=== PATIENT | female | born 1965 | race Caucasian/White ===

== ENCOUNTER 2020-09-29 13:34 | Emergency (ER) | payer OTHER, SELFPAY ==
--- NOTE | ~2020-09-29 | XR_ITS ---
EXAMINATION:XR cervical spine 4-5V DATE: 09/29/2020 14:36 INDICATION: Neck pain TECHNIQUE: AP, lateral, lateral swimmers and odontoid views of the cervical spine are provided. COMPARISON: None FINDINGS: There are 3 mm of retrolisthesis of C5 on C6. The odontoid is intact. No fracture is identi fied. The vertebral body heights are normal. There is moderate loss of intervertebral disc space heig ht at C5-6 and C6-7. Small degenerative osteophytes project from the anterior endplates of multiple v ertebral bodies. There is moderate multilevel facet and uncovertebral joint osteoarthritis. Surgical clips in the neck are likely from thyroidectomy. IMPRESSION: 1. Moderate cervical spondylosis without acute findings. Reviewed, dictated and finalized at location A.
--- NOTE | ~2020-09-29 | XR_ITS ---
EXAMINATION: XR lumbar spine 2-3V DATE: 09/29/2020 14:36 INDICATION: Low back pain TECHNIQUE: Anteroposterior and lateral views of the lumbar spine, and cone-down lateral view of the l umbosacral junction were obtained. COMPARISON: 12/19/2011 FINDINGS: There is mild central endplate depression in the L2 and L3 vertebral bodies. There are 3 mm of anterolisthesis of L4 on L5. There is mild loss of intervertebral disc space height at L5-S1. The intervertebral disc spaces are otherwise maintained. IMPRESSION: 1. Age-indeterminate compression fractures of L2 and L3. Reviewed, dictated and finalized at location A.
[2020-09-29 13:47] VITALS: BP 112/77; PULSE 103; RESP 16; TEMP 36.7; O2SAT 98
[2020-09-29 13:51] VITALS: BP 112/77; PULSE 103; RESP 16; TEMP 36.7; O2SAT 98
--- NOTE | 2020-09-29 14:13 | ED.BACK ---
HPI - Back Pain/Injury General Chief Complaint: Back Pain/Injury Stated Complaint: back pain/neck pain/rt leg Time Seen by Provider: 09/29/20 14:05 Source: patient, RN notes reviewed and old records reviewed Mode of arrival: wheelchair Limitations: no limitations History of Present Illness HPI Narrative: 55 year old female who presents to [facility] care with complaints of experiencing a fall onto her back today when a dog tried to get out of the door. She was inside of her cousins house getting ready to leave and dog caused her to fall hard onto living room floor onto her back. Patient voices pain to the posterior neck and to midlumbar back region with some tingling stated to her right arm and leg. Patient states that she was incontinent of urine when she fell but has history of problems with incontinency. Patient has palpable pulses to lower extremities of good quality. MD elicited complaint: back pain and fall Related Data Home Medications Medication Instructions Recorded Confirmed albuterol sulfate [ProAir 2 inh INHALATION Q6H PRN 09/29/20 09/29/20 RespiClick] alprazolam 0.5 mg PO TID 09/29/20 09/29/20 citalopram 40 mg PO DAILY 09/29/20 09/29/20 duloxetine 30 mg PO DAILY 09/29/20 09/29/20 hydroxychloroquine 400 mg PO DAILY 09/29/20 09/29/20 levothyroxine [Euthyrox] 200 mcg PO DAILY 09/29/20 09/29/20 lisinopril-hydrochlorothiazide 1 tablet PO DAILY 09/29/20 09/29/20 nabumetone 1,000 mg PO BID PRN 09/29/20 09/29/20 Allergies Allergy/AdvReac Type Severity Reaction Status Date / Time doxycycline AdvReac Nausea Verified 09/29/20 13:50 Review of Systems Review of Systems: CONSTITUTIONAL: Denies fever, chills, or sweats. EYES: Denies visual changes, redness, or discharge. ENT: Denies rhinorrhea, congestion, sore throat, or otalgia. CARDIOVASCULAR: Denies chest pain, palpitations, or edema. RESPIRATORY: Denies cough or dyspnea. GASTROINTESTINAL: Denies abdominal pain, nausea, vomiting, or diarrhea. GENITOURINARY: Denies dysuria or hematuria. SKIN: Denies rash or itching. MUSCULOSKELETAL: Positive mid lumbar back pain and posterior neck pain,no other joint pain, or myalgia, reports feelings of tightness and spasms of back NEUROLOGIC: Denies headache, numbness, or weakness. PSYCHIATRIC: Positive history anxiety or depression. All systems reviewed & are unremarkable except as noted in HPI and below PMFSH Past Medical History Medical History (Updated 10/01/20 @ 17:12 by Teri Ureña NP) Anxiety and depression Asthma Autoimmune disease Bronchitis Compression fracture COVID-19 Hypertension Thyroid cancer Urinary incontinence Surgical History Surgical History H/O thyroidectomy Hx of appendectomy Hx of cholecystectomy Family History Family History (Updated 10/01/20 @ 17:16 by Teri Ureña NP) Other No significant family history Social History Social History (Updated 09/29/20 @ 18:36 by Teri Ureña NP) Smoking status: Never smoker Alcohol intake: unknown Substance use: never Living arrangements: with family Gender identity (if verbalized by the patient): Female Comments At time of signature, agree with nursing past medical, surgical, social and family history. There is no relevant family history pertinent to the presenting complaint Exam Narrative: GENERAL: Well-appearing, well-nourished, and in stated acute pain. HEAD: Normocephalic, atraumatic. EYES: PERRLA and EOMI. ENT: Nares clear, no rhinorrhea or epistaxis. Mucous membranes moist. NECK: Supple. no lymphadenopathy, full ROM of neck noted with pain on palpation to posterior neck CHEST: Clear to auscultation. No respiratory distress.SAO2 98% on room air HEART: Regular rate and rhythm. No murmur heard. Normal peripheral pulses. ABDOMEN: Soft, nontender, nondistended, normal active bowel sounds. EXTREMITIES: Normal range of motion. No edema noted. Pain to mid lumbar back re
== END 2020-09-29 15:20 | disposition short-term general hospital (02) ==
PROVIDERS: Emergency Provider Registered Nurse; PCP Nurse Practitioner Family
DX: M54.2 Cervicalgia (principal); S32.029A Unspecified fracture of second lumbar vertebra, initial encounter for closed fracture; S32.039A Unspecified fracture of third lumbar vertebra, initial encounter for closed fracture; M47.812 Spondylosis without myelopathy or radiculopathy, cervical region; S39.012A Strain of muscle, fascia and tendon of lower back, initial encounter; W19.XXXA Unspecified fall, initial encounter; J45.909 Unspecified asthma, uncomplicated; I10 Essential (primary) hypertension; F41.9 Anxiety disorder, unspecified; F32.9 Major depressive disorder, single episode, unspecified; M35.9 Systemic involvement of connective tissue, unspecified; Z86.14 Personal history of Methicillin resistant Staphylococcus aureus infection; Z85.850 Personal history of malignant neoplasm of thyroid; E89.0 Postprocedural hypothyroidism
CPT/HCPCS: 72050; 72100; 99203; G0463

== ENCOUNTER 2020-09-29 15:44 | Emergency (ER) | payer OTHER, SELFPAY ==
--- NOTE | ~2020-09-29 | CT_ITS ---
EXAMINATION: CT lumbar spine wo con DATE: 09/29/2020 17:45 INDICATION: Back pain. Compression fracture. TECHNIQUE: Computed tomography (CT) of the lumbar spine was performed without intravenous contrast. A utomated exposure control and iterative reconstruction technique were employed. The dose-length produ ct was 1337.40 mGy-cm. COMPARISON: Lumbar spine radiograph 09/29/2020 FINDINGS: There is 3 mm retrolisthesis of L1 on L2 and 3 mm anterolisthesis of L4 on L5. Vertebral maliha dy heights are normal. There is mildly decreased disc height at L1-L2 and L3-L4 and moderately decrea sed disc height at L5-S1. The following disc levels are specifically discussed: L1-L2: The disc is bulging. There is mild bilateral facet joint osteoarthritis. There is mild bilater al neural foraminal stenosis. There is mild central canal stenosis. L2-L3: The disc does not extend beyond the endplate margin. There is mild bilateral facet joint osteo arthritis. There is no neural foraminal stenosis. There is no central canal stenosis. L3-L4: The disc does not extend beyond the endplate margin. There is severe right and moderate left f acet joint osteoarthritis. There is no neural foraminal stenosis. There is mild central canal stenosi s. L4-L5: The disc is bulging. There is severe bilateral facet joint osteoarthritis. There is mild bilat eral neural foraminal stenosis. There is mild central canal stenosis. L5-S1: The disc is bulging. There is severe bilateral facet joint osteoarthritis. There is mild right and moderate left neural foraminal stenosis. There is mild central canal stenosis. IMPRESSION: 1. No fracture. 2. Moderate lumbar spondylosis. Reviewed, dictated and finalized at location A.
[2020-09-29 16:15] VITALS: BP 109/90; PULSE 95; RESP 18; TEMP 36.8; O2SAT 98
[2020-09-29 17:02] VITALS: BP 102/50; PULSE 87; RESP 16; O2SAT 97
--- NOTE | 2020-09-29 17:07 | ED.FALL ---
HPI - Fall General Chief Complaint: Fall Stated Complaint: fall, sent from urgent care Time Seen by Provider: 09/29/20 17:02 Source: patient and family Mode of arrival: ambulatory Limitations: no limitations History of Present Illness HPI Narrative: Patient is a 55-year-old female with a history of thyroid cancer, currently in remission, who presents for evaluation following a fall, noted to have compression fractures found on plain films at a urgent care. Patient was referred to this facility due to her degree of pain. Patient states that she fell backward after a small dog lunged at her feet when she was visiting a family member. Patient reports falling directly onto her back. She reports that she is not currently having any numbness. No current bowel or bladder dysfunction. She has been ambulatory. Patient was not given any pain medicine at the urgent care. Patient denies any weakness in her lower extremities. She denies neck pain, head trauma or loss of consciousness. Patient denies any saddle anesthesia. Related Data Home Medications Medication Instructions Recorded Confirmed albuterol sulfate [ProAir 2 inh INHALATION Q6H PRN 09/29/20 09/29/20 RespiClick] alprazolam 0.5 mg PO TID 09/29/20 09/29/20 citalopram 40 mg PO DAILY 09/29/20 09/29/20 duloxetine 30 mg PO DAILY 09/29/20 09/29/20 hydroxychloroquine 400 mg PO DAILY 09/29/20 09/29/20 levothyroxine [Euthyrox] 200 mcg PO DAILY 09/29/20 09/29/20 lisinopril-hydrochlorothiazide 1 tablet PO DAILY 09/29/20 09/29/20 nabumetone 1,000 mg PO BID PRN 09/29/20 09/29/20 Allergies Allergy/AdvReac Type Severity Reaction Status Date / Time doxycycline AdvReac Nausea Verified 09/29/20 13:50 Review of Systems Review of Systems: CONSTITUTIONAL: Denies fever CARDIOVASCULAR: Denies chest pain RESPIRATORY: Denies cough or dyspnea. GASTROINTESTINAL: Denies abdominal pain SKIN: Denies rash MUSCULOSKELETAL: Reports lower back pain NEUROLOGIC: Denies headache [facility] Past Medical History Medical History (Updated 09/29/20 @ 18:52 by Teri Barrera MD) Anxiety and depression Asthma Autoimmune disease Bronchitis Compression fracture COVID-19 Hypertension Thyroid cancer Urinary incontinence Surgical History Surgical History H/O thyroidectomy Hx of appendectomy Hx of cholecystectomy Social History Social History (Updated 09/29/20 @ 18:36 by Teri Ureña NP) Smoking status: Never smoker Alcohol intake: unknown Substance use: never Living arrangements: with family Gender identity (if verbalized by the patient): Female Exam Narrative: GENERAL: Awake, alert, conversant HEAD: Normocephalic, atraumatic. EYES: PERRLA and EOMI. ENT: Nares clear, no rhinorrhea or epistaxis. Mucous membranes moist. NECK: Supple. CHEST: No respiratory distress, breathing even and non labored HEART: Regular rate, sinus rhythm ABDOMEN:Non distended, non tender Thorax: Positive midline lumbar tenderness. No midline cervical or thoracic tenderness. EXTREMITIES: Normal range of motion. No edema. Pelvis is stable to anterior lateral compression. No pain with internal or external rotation bilateral hips. SKIN: Warm, dry, no rash. NEURO:No focal deficits. Alert and oriented x3. Strength in bilateral lower extremities 5/5. Distal sensation intact. Reflexes 2+ bilaterally. Course Vital Signs Vital signs: Vital Signs Temperature 36.8 C 09/29/20 16:15 Pulse Rate 95 09/29/20 16:15 Respiratory Rate 18 09/29/20 16:15 Blood Pressure 109/90 09/29/20 16:15 Pulse Oximetry 98 09/29/20 16:15 Temperature 36.8 C 09/29/20 16:15 Pulse Rate 87 09/29/20 17:02 Respiratory Rate 16 09/29/20 17:02 Blood Pressure 102/50 L 09/29/20 17:02 Pulse Oximetry 97 09/29/20 17:02 MDM - Fall MDM Narrative Medical decision making narrative: Patient presented from urgent care for evaluation of compression fractures found
[2020-09-29] MEDS: KETOROLAC (*BKC) 60 MG/2 ML VIAL 30 MG IM (18:01)
[2020-09-29] MEDS: oxyCODONE/ACETAMINOPHEN (*CRX) 5-325 MG TABLET 1 TABLET PO (18:01)
[2020-09-29 18:54] VITALS: BP 111/74; PULSE 89; RESP 16; O2SAT 98
== END 2020-09-29 18:55 | disposition home or self-care (01) ==
PROVIDERS: Emergency Provider Emergency Medicine; PCP Nurse Practitioner Family
DX: S39.012A Strain of muscle, fascia and tendon of lower back, initial encounter (principal); J45.909 Unspecified asthma, uncomplicated; Z86.16 Personal history of COVID-19; I10 Essential (primary) hypertension; M35.9 Systemic involvement of connective tissue, unspecified; F41.9 Anxiety disorder, unspecified; F32.9 Major depressive disorder, single episode, unspecified; Z85.850 Personal history of malignant neoplasm of thyroid; E89.0 Postprocedural hypothyroidism; M47.816 Spondylosis without myelopathy or radiculopathy, lumbar region; W18.39XA Other fall on same level, initial encounter
CPT/HCPCS: 72131; 96372; 99284; A9270; J1885

== ENCOUNTER 2021-12-24 16:44 | Emergency (ER) | payer OTHER, SELFPAY ==
--- NOTE | ~2021-12-24 | CT_ITS ---
EXAMINATION: CT abdomen pelvis wo con DATE: 12/24/2021 18:08 INDICATION: constipation x 9 days, diffuse abd pain TECHNIQUE: Computed tomography (CT) of the abdomen and pelvis was performed without intravenous contr ast. Automated exposure control and iterative reconstruction technique were employed. The dose-length product was 1611.21 mGy-cm. COMPARISON: 12/19/2011. FINDINGS: Lower thorax: Unremarkable Liver: Normal. Biliary/Gallbladder: Gallbladder is absent. No bile duct dilation. Pancreas: Fatty infiltrated. Spleen: Normal. Adrenals:No mass. Kidneys: No suspicious mass or stone. Persistent mild left ureterectasis. GI tract: Prior gastric surgery the distal rectum is mildly dilated to 5.9 cm, by formed stool. Somew hat eccentric rectal wall edema/thickening and surrounding inflammatory change. No small bowel dilati on. Appendix not visualized Mesentery/Peritoneum: No ascites, mass, or free air. Retroperitoneum: No mass. Pelvis: Persistent distal left ureteral ectasia, otherwise the pelvic organs are within normal limits . Soft Tissues: Left upper quadrant abdominal scar. Right lower quadrant injection granuloma. Uncomplic ated fat-containing umbilical hernia. Bones: No acute osseous finding. IMPRESSION: Rectal wall edema/thickening, with surrounding inflammatory change and mild fecal impaction. These fi ndings may be secondary to proctitis. A rectal mass lesion is not excluded. Reviewed, dictated and finalized at location K. IMPRESSION: Rectal wall edema/thickening, with surrounding inflammatory change and mild fec al impaction. These findings may be secondary to proctitis. A rectal mass lesio n is not excluded.
--- NOTE | 2021-12-24 17:11 | ED.ABDPAIN ---
HPI - Abdominal Pain General Chief Complaint: Abdominal Pain <Lidia Rice PA-C - Last Filed: 12/24/21 21:03> Stated Complaint: constipation <Lidia Rice PA-C - Last Filed: 12/24/21 21:03> Time Seen by Provider: 12/24/21 16:57 <Lidia Rice PA-C - Last Filed: 12/24/21 21:03> History of Present Illness HPI narrative: Patient is a 56-year-old female who is 4 weeks postop from a sleeve gastrectomy surgery here for evaluation of constipation over the past 9 days. Patient has been taking daily MiraLAX and Dulcolax without relief of her constipation. Patient states that her appetite has been quite low recently because of nausea, and therefore she has not been drinking much fluids or eating much food. She states that this happened 2 weeks ago, was seen in outside hospital ED, received an enema with relief of her symptoms. No fevers, chills, vomiting, dysuria, urgency or frequency. She tells me that she has been following with her primary care about provider for an elevated creatinine, it was 1.5 on November 29. <Lidia Rice PA-C - Last Filed: 12/24/21 21:03> Related Data Home Medications: Home Medications Medication Instructions Recorded Confirmed albuterol sulfate 90 mcg/actuation 2 inh inhalation Q6H PRN Shortness 09/29/20 09/29/20 breath activated powder inhaler Of Breath (ProAir RespiClick) alprazolam 0.5 mg tablet 0.5 mg PO TID 09/29/20 09/29/20 citalopram 40 mg tablet 40 mg PO DAILY 09/29/20 09/29/20 duloxetine 30 mg capsule,delayed 30 mg PO DAILY 09/29/20 09/29/20 release hydroxychloroquine 200 mg tablet 400 mg PO DAILY 09/29/20 09/29/20 levothyroxine 200 mcg tablet 200 mcg PO DAILY 09/29/20 09/29/20 (Euthyrox) lisinopril 20 1 tablet PO DAILY 09/29/20 09/29/20 mg-hydrochlorothiazide 25 mg tablet nabumetone 500 mg tablet 1,000 mg PO BID PRN Pain 09/29/20 09/29/20 <Lidia Rice PA-C - Last Filed: 12/24/21 21:03> Allergies/Adverse Reactions: Allergies Allergy/AdvReac Type Severity Reaction Status Date / Time doxycycline AdvReac Nausea Verified 09/29/20 13:50 <Lidia Rice PA-C - Last Filed: 12/24/21 21:03> Review of Systems Review of Systems: Gen.: Denies fevers or chills Eyes: Denies eye pain or visual change ENT: Denies congestion Respiratory: Denies shortness of breath or cough CV: Denies chest pain or palpitations GI: Reports constipation, nausea, abdominal pain. Denies emesis or diarrhea denies burning, urgency, frequency or hematuria Musculoskeletal: Denies back pain or muscle pain Neuro: Denies numbness, tingling, weakness or focal weakness Skin: Denies rash Except as documented, all other systems reviewed and negative <Lidia Rice PA-C - Last Filed: 12/24/21 21:03> [facility] Past Medical History Medical History: Medical History Anxiety and depression Asthma Autoimmune disease Bronchitis Compression fracture COVID-19 Hypertension Thyroid cancer Urinary incontinence <Lidia Rice PA-C - Last Filed: 12/24/21 21:03> Surgical History Surgical History: Surgical History H/O thyroidectomy Hx of appendectomy Hx of cholecystectomy <Lidia Rice PA-C - Last Filed: 12/24/21 21:03> Family History Family History: Family History (Updated 10/01/20 @ 17:16 by Teri Ureña NP) Other No significant family history <Lidia Rice PA-C - Last Filed: 12/24/21 21:03> Social History Social History: Social History (Updated 09/29/20 @ 18:36 by Teri Ureña NP) Smoking status: Never smoker Alcohol intake: unknown Substance use: never Gender identity (if verbalized by the patient): Female <Lidia Rice PA-C - Last Filed: 12/24/21 21:03> Exam Narrative: APPEARANCE: Obese. Well appea
[2021-12-24 17:12] VITALS: BP 109/64; PULSE 86; RESP 20; TEMP 36.6; O2SAT 96
[2021-12-24] MEDS: SODIUM CHLORIDE 0.9% IV 1,000 ML 999 ML IV CONT ×2 (17:28→19:48)
[2021-12-24 17:35] LABS: Basophils Absolute Auto 0.1 K/mm3 (0.0-0.1); Basophils Percent Auto 0.4 % (0.2-1.2); Eosinophils Absolute Auto 0.2 K/mm3 (0-0.3); Eosinophils Percent Auto 1.9 % (0-4.4); Hematocrit 33.4 % (37.0-47.0); Hemoglobin 10.4 g/dL (12.0-15.0); Immature Granulocyte Absolute 0.06 K/mm3 (0.00-0.031); Immature Granulocyte Percent A 0.5 % (0-0.5); Lymphocytes Absolute Auto 2.18 K/mm3 (0.9-3.2); Lymphocytes Percent Auto 19.3 % (18.3-44.2); Mean Corpuscular HGB Conc 31.1 g/dl (32-36); Mean Corpuscular Hemoglobin 26.3 pg (26-34); Mean Corpuscular Volume 84.3 fl (80-100); Mean Platelet Volume 9.8 fl (7.4-10.4); Monocytes Percent Auto 8.7 % (2.6-8.5); Neutrophils Absolute Auto 7.8 K/mm3 (1.3-6.7); Neutrophils Percent Auto 69.2 % (45.5-73.1); Platelet Count Result 318 k/mm3 (150-375); Red Blood Count 3.96 M/mm3 (4.2-5.4); Red Cell Distribution Width 14.4 % (11.5-14.5); White Blood Count 11.3 K/mm3 (4.5-10.0)
[2021-12-24 17:47] LABS: Phosphorus 3.4 mg/dL (2.5-4.5)
[2021-12-24 17:48] LABS: Alanine Aminotransferase 28 U/L (6-35); Albumin Level 4.4 g/dL (3.5-5.1); Alkaline Phosphatase 110 U/L (38-126); Anion Gap 10 mmol/L (8-16); Aspartate Amino Transferase 45 U/L (14-36); Bilirubin,Total 0.4 mg/dL (0.2-1.3); Blood Urea Nitrogen 38 mg/dL (7-17); Calcium 9.4 mg/dL (8.4-10.2); Carbon Dioxide 31 mmol/L (22-30); Chloride 97 mmol/L (98-107); Estimated CRCL calculation 42 ml/min; Estimated Glomerular Filt Rate 27; Glucose 110 mg/dL (65-110); Potassium 3.8 mmol/L (3.4-5.0); Sodium 138 mmol/L (137-145)
[2021-12-24] MEDS: ONDANSETRON INJ 4 MG/2 ML VIAL IV PUSH (19:49)
== END 2021-12-24 20:48 | disposition home or self-care (01) ==
PROVIDERS: Physician Assistant; Emergency Provider Emergency Medicine; PCP Nurse Practitioner Family
DX: K56.41 Fecal impaction (principal); Z98.84 Bariatric surgery status; J45.909 Unspecified asthma, uncomplicated; I10 Essential (primary) hypertension; M35.9 Systemic involvement of connective tissue, unspecified; E89.0 Postprocedural hypothyroidism; F41.9 Anxiety disorder, unspecified; F32.A Depression, unspecified; Z85.51 Personal history of malignant neoplasm of bladder; Z86.16 Personal history of COVID-19
CPT/HCPCS: 36415; 74176; 80053; 83605; 83735; 84100; 85025; 96361; 96374; 99284; J2405; J7030

== ENCOUNTER 2024-05-11 19:06 | Emergency (ER) | payer OTHER, SELFPAY ==
[2024-05-11] VITALS (7 sets, daily range): BP systolic 119–139; BP diastolic 71–95; PULSE 78–109; RESP 14–17; TEMP 36.9; O2SAT 98–100
--- NOTE | ~2024-05-11 | CT_ITS ---
CLINICAL INDICATION: Nausea and vomiting after colonoscopy less than 12 hours earlier COMPARISON: 12/24/2021 and dating back to 12/19/2011. TECHNIQUE: Multiple contiguous axial images of the abdomen and pelvis were performed without the admi nistration of intravenous contrast The dose-length product (DLP) was 1539.71 mGy-cm. Automated exposure control and iterative reconstruction technique were employed. FINDINGS/OBSERVATIONS: Visualized lower thorax: The bilateral lung bases are clear. The heart is of normal size, without pericardial effusion. Small hiatal hernia is present. 17 mm cystic focus within the lower inner left breast. Liver: The liver demonstrates homogeneous attenuation and is enlarged measuring 19 cm in longitudinal dimens ion. Gallbladder and biliary system: The gallbladder is surgically absent. Pancreas: Fatty atrophy of the pancreas. Further evaluation is limited secondary to lack of intravenous contras t. Spleen: The spleen demonstrates homogeneous attenuation and is not enlarged measuring 8 cm in longitudinal di mension. Kidneys: Redemonstration of mild left-sided hydroureteronephrosis without an obstructing stone identi fied. This is similar in appearance to 2011 and 2021. The remainder of the bilateral kidneys are otherwise unremarkable, without right-sided hydronephrosis or bilateral renal calculi. Adrenal glands: Unremarkable. Gastrointestinal tract: Post gastric sleeve surgery. Scattered throughout the colon is a combination of fluid and punctate foci of increased attenuation, possibly related to patient's procedure earlier today. No extraluminal air is identified. Air is identified within the rectum. Appendix: Surgically absent. Vasculature: Unremarkable. Lymph nodes: Limited evaluation without intravenous contrast. Pelvic structures: The bladder is decompressed, limiting its evaluation. The uterus is anteverted and anteflexed, and otherwise unremarkable. Body wall and musculoskeletal: Small fat-containing umbilical hernia. Trace degenerative disease within the lower thoracic/lumbosacral spine, with osteophyte formation, di sc space narrowing, endplate changes and vacuum phenomena, most prominent at the level of L5/S1. IMPRESSION: Mild left-sided hydroureteronephrosis without a source of obstruction identified. This finding is unchanged from 2021 and 2011. No acute intra-abdominal findings, as detailed above. Reviewed, dictated and finalized at location A. IMPRESSION: Mild left-sided hydroureteronephrosis without a source of obstruction identifie d. This finding is unchanged from 2021 and 2011. No acute intra-abdominal findings, as detailed above.
--- NOTE | ~2024-05-11 | XR_ITS ---
CHEST RADIOGRAPH, PA AND LATERAL CLINICAL HISTORY: chest pressure, NAUSEA . COMPARISON: None available TECHNIQUE: PA and lateral views of the chest. FINDINGS The cardiomediastinal silhouette is unremarkable. The lungs are clear. Visualized osseous structures and soft tissues are unremarkable. IMPRESSION: No focal infiltrate or effusion. Reviewed, dictated and finalized at location A.
--- NOTE | 2024-05-11 19:08 | ECG_ITS ---
Test Date: 2024-05-11 19:10:25 Measurements Intervals [place] Rate: 108 P: 38 FL: 193 QRS: -2 QRSD: 81 T: 56 QT: 355 QTc: 476 Interpretive Statements SINUS TACHYCARDIA POSSIBLE ANTERIOR MYOCARDIAL INFARCTION , PROBABLY OLD [30 ms Q WAVE IN V3/V4, OR R < 0.2 mV IN V4] No previous ECG available for comparison Electronically Signed On 05-12-2024 16:45:31 CDT by Cullen Valero M.D.
[2024-05-11] MEDS: SODIUM CHLORIDE 0.9% IV 1,000 ML 999 ML IV CONT ×2 (19:18→20:55)
[2024-05-11 19:25] LABS: Basophils Absolute Auto 0.1 K/mm3 (0.0-0.1); Basophils Percent Auto 0.3 % (0.2-1.2); Eosinophils Absolute Auto 0.1 K/mm3 (0-0.3); Eosinophils Percent Auto 0.6 % (0-4.4); Hematocrit 40.6 % (37.0-47.0); Hemoglobin 13.5 g/dL (12.0-15.0); Immature Granulocyte Absolute 0.07 K/mm3 (0.00-0.031); Immature Granulocyte Percent A 0.4 % (0-0.5); Lymphocytes Absolute Auto 0.63 K/mm3 (0.9-3.2); Lymphocytes Percent Auto 3.2 % (18.3-44.2); Mean Corpuscular HGB Conc 33.3 g/dl (32-36); Mean Corpuscular Hemoglobin 27.7 pg (26-34); Mean Corpuscular Volume 83.2 fl (80-100); Mean Platelet Volume 8.7 fl (7.4-10.4); Monocytes Absolute Auto 1.1 K/mm3 (0.1-0.6); Monocytes Percent Auto 5.7 % (2.6-8.5); Neutrophils Absolute Auto 17.5 K/mm3 (1.3-6.7); Neutrophils Percent Auto 89.8 % (45.5-73.1); Platelet Count Result 379 k/mm3 (150-375); Red Blood Count 4.88 M/mm3 (4.2-5.4); Red Cell Distribution Width 15.8 % (11.5-14.5); White Blood Count 19.5 K/mm3 (4.5-10.0)
[2024-05-11 19:35] LABS: Alanine Aminotransferase 28 U/L (6-35); Albumin Level 4.8 g/dL (3.5-5.1); Alkaline Phosphatase 119 U/L (38-126); Anion Gap 14 mmol/L (4-12); Aspartate Amino Transferase 34 U/L (14-36); Bilirubin,Total 0.6 mg/dL (0.2-1.3); Blood Urea Nitrogen 18 mg/dL (7-17); Calcium 9.2 mg/dL (8.4-10.2); Carbon Dioxide 22 mmol/L (22-30); Chloride 100 mmol/L (98-107); Estimated CRCL calculation 71 ml/min; Estimated Glomerular Filt Rate 57; Glucose 152 mg/dL (65-110); Lipase 201 U/L (23-300); Potassium 3.3 mmol/L (3.4-5.0); Sodium 136 mmol/L (137-145)
--- OUTSIDE RECORDS SUMMARY | 2024-05-11 19:39 | XMS_ITS | Encounter Summary ---
Author Organization [employer] Address [address] [place] [address] Care Team Providers Care Statistical Methods Teacher Name Role Phone Ori Tuttle MD Primary Care Provider [phone] Encounter Details Date Type Department Care Team (Latest Contact Info) Description 07/05/1998 Inpatient Historical HIS PATIENT [place] Muñ[place] [address] [place] [id number] Shoulder (girdle) dystocia during labor and deliver, delivered (Primary Dx) Social History Tobacco Use Types Packs/Day Years Used Date Smoking Tobacco: Never Assessed Comments Unknown Sex and Gender Information Value Date Recorded Sex Assigned at Not on file Legal Sex Female 3:28 AM [employer] Gender Identity Not on file Sexual Orientation Not on file documented as of this encounter Plan of Treatment Not on file documented as of this encounter Visit Diagnoses Diagnosis Shoulder (girdle) dystocia during labor and deliver, delivered- Primary documented in this encounter Care Teams Statistical Methods Teacher Relationship Specialty Start Date End Date Ori Tuttle MD [address] [facility] [address] [facility] [id number] PCP - General 12/20/99 documented as of this encounter
--- OUTSIDE RECORDS SUMMARY | 2024-05-11 19:39 | XMS_ITS ---
Author Organization [facility] Address [address] [address] [place] [address] Care Team Providers Care Assembly Worker Name Role Phone Chucho Stapleton Unavailable [phone] zzzzMigration, zzzzProvider Unavailable Unav ailable Allergies Allergen (clinical drug ingredient) Drug/Non Drug Allergy documented on EMR Reaction Allergy Type Onset Date Status nabumetone Nabumetone Reaction: Asthma attack Drug Allergy 07/06/2020 Active doxycycline Doxycycline Unknown Drug Allergy 06/27/2020 Ac tive Cat dander Cat Dander Unknown Allergy 06/27/2020 Active Dust Mites Unknown Allergy 06/27/2020 Active Pollen Pollen Unknown Allergy 06/27/2020 Active REASON FOR VISIT EMR-Gabriel Medications Medication SIG (Take, Route, Frequency, Duration) Notes Start Date End Date Status Methocarbamol 750 MG take 1 tablet (750 mg) by oral route 3 times per day Oral 3 Active Leflunomide 20 MG take 1 tablet (20 mg) by oral route once daily Oral 1 07/17/2021 Active Levothyroxine 200 mcg 1 daily oral *[facility]* Active Albuterol 2 every 6 hours puffs [facility] Active Meloxicam 15 MG take 1 tablet (15 mg) by oral route once daily with food. Oral 1 04/10/2021 Active traMADol HCl 50 MG take 1 tablet (50 mg) by oral route every 6 hours as needed Oral 4 Active citalopram 40 mg 1 nightly oral *[facility]* Active Medrol 4 MG take as directed Oral 07/17/2021 Active Acetaminophen 500 mg 2 tablets ( 1000mg ) every 6 hours oral *Pick strength-form from [facility] for eRX* Active Lisinopril/HCTZ 20 /25 1 nightly oral *[facility]* Active ALPRAZolam .5 mg 3 times daily as needed oral *Pick strength-form from [facility] for eRX* Active DULoxetine HCl 30 MG take 1 capsule (30 mg) by oral route once daily Oral 1 Active Vitamin D3 25 mcg/1000 1 in morning oral *Pick strength-form from [facility] for eRX* Active certrizine 10 mg HS oral *[facility]* Active fluticasone [place] 2 2 sprays each nostril as needed spray *[facility]* Active Encounters Encounter Location Date Provider Diagnosis [facility] [address] [facility] [address] [place] [address] 12/16/2022 zzzzProvider zzzzMigration Plan Of Treatment No Information Progress Notes * Fer SANCHEZGabiOB:[birth year] (58 yo F)Acc No.[id number]:12/16/2022 Patient: Larisa KRAUSE :1965 A ge:57 Y S ex:Female Phone: Address:[address] [place] [address], [id number] Subjective: * Chief Complaints: * E MR-Gabriel * Medical History: * Surgical History: G allbladder Removed, Date of Procedure: 1984; [id number]: removed - thyroid cancer, Date of Procedure: ; [id number], Date of Procedure: 1984; [id number] Bx: right breast both times, Date of Procedure: 1993; 2020-06-27 * Hospitalization/Major Diagno stic Procedure: * Family History: M igrated Family History: Father Notes: High blood pressure is 79 , Mother Notes: Ovarian Cancer is 76 years old , siblings Notes: one 51 years old - high cholesterol . * Social History: M igrated Social History: M igrated Social History: :: 2 Children , Exercise :: None Lately , Marital Status :: , Substance Use :: Alcohol :: Never :: note : Use status used: Never , Substance Use :: Tobacco :: Never. * Medications: T akingLisinopril/HCTZ 20 /25 1 nightly oral , Notes to Pharmacist: *Reorder from [facility] for eRx and Interaction Alerts*citalopram 40 mg 1 nightly oral , Notes to Pharmacist: *Reorder from [facility] for eRx and Interaction Alerts*Leflunomide 20 MG Tablet take 1 tablet (20 mg) by oral route once daily Oral 1 traMADol HCl 50 MG Tablet take 1 tablet (50 mg) by oral route every 6 hours as needed Oral 4 Albuterol 2 every 6 hours puffs , Notes to Pharmacist: *Reorder from [facility] for eRx and Interaction Alerts*Vitamin D3 25 mcg/1000 1 in morning oral , Notes to Pharmacist: *Pick strength-form from [facility] for eRX*fluticasone [place] 2 2 sprays each nostril as needed spray , Notes to Pharmacist: *Reorder from [facility] for eRx and Interaction Alerts*Methocarbamol 750 MG Tablet take 1 tablet (750 mg) by oral route 3 times per day Oral 3 certrizine 10 mg HS oral , Notes to Pharmacist: *Reorder from [facility] for eRx and Interaction Alerts*Meloxicam 15 MG Tablet take 1 tablet (15 mg) by oral route once daily with food. Oral 1 ALPRAZolam .5 mg 3 times daily as needed oral , Notes to Pharmacist: *Pick strength-form from [facility] for eRX*DULoxetine HCl 30 MG Capsule Delayed Release Particles take 1 capsule (30 mg) by oral route once daily Oral 1 Medrol 4 MG Tablet Therapy Pack take as directed Oral Levothyroxine 200 mcg 1 daily oral , Notes to Pharmacist: *Reorder from [facility] for eRx and Interaction Alerts*Acetaminophen 500 mg 2 tablets ( 1000mg ) every 6 hours oral , Notes to Pharmacist: *Pick strength-form from [facility] for eRX*Taking Lisinopril/HCTZ 20 /25 1 nightly oral , Notes to Pharmacist: *Reorder from [facility] for eRx and Interaction Alerts*Taking citalopram 40 mg 1 nightly oral , Notes to Pharmacist: *Reorder from [facility] for eRx and Interaction Alerts*Taking Leflunomide 20 MG Tablet take 1 tablet (20 mg) by oral route once daily Oral 1 Taking traMADol HCl 50 MG Tablet take 1 tablet (50 mg) by oral route every 6 hours as needed Oral 4 Taking Albuterol 2 every 6 hours puffs , Notes to Pharmacist: *Reorder from [facility] for eRx and Interaction Alerts*Taking Vitamin D3 25 mcg/1000 1 in morning oral , Notes to Pharmacist: *Pick strength-form from [facility] for eRX*Taking fluticasone [place] 2 2 sprays each nostril as needed spray , Notes to Pharmacist: *Reorder from [facility] for eRx and Interaction Alerts*Taking Methocarbamol 750 MG Tablet take 1 tablet (750 mg) by oral route 3 times per day Oral 3 Taking certrizine 10 mg HS oral , Notes to Pharmacist: *Reorder from [facility] for eRx and Interaction Alerts*Taking Meloxicam 15 MG Tablet take 1 tablet (15 mg) by oral route once daily with food. Oral 1 Taking ALPRAZolam .5 mg 3 times daily as needed oral , Notes to Pharmacist: *Pick strength-form from [facility] for eRX*Taking DULoxetine HCl 30 MG Capsule Delayed Release Particles take 1 capsule (30 mg) by oral route once daily Oral 1 Taking Medrol 4 MG Tablet Therapy Pack take as directed Oral Taking Levothyroxine 200 mcg 1 daily oral , Notes to Pharmacist: *Reorder from [facility] for eRx and Interaction Alerts*Taking Acetaminophen 500 mg 2 tablets ( 1000mg ) every 6 hours oral , Notes to Pharmacist: *Pick strength-form from [facility] for eRX* * Allergies: N abumetone: Reaction: Asthma attack - Allergy - Onset Date 07/06/2020oxycycline: Allergy - Onset Date 06/27/2020at Dander: Allergy - Onset Date 06/27/2020ust Mites: Allergy - Onset Date 06/27/2020ollen: Allergy - Onset Date 06/27/2020 Objective: * Vitals: * Physical Examination: Assessment: Plan: * Treatment: * Procedure Codes: * * Date:
--- OUTSIDE RECORDS SUMMARY | 2024-05-11 19:39 | XMS_ITS | Patient Health Summary ---
Author Organization [facility] Address [address] [place] [address] Care Team Providers Care Sql Ssrs Ssis Developer Name Role Phone Chucho Gallardo MD Unavailable Primitivo Wagner MD Primary Care Provider [phone] Note from [facility],non-owned Affiliates and Associated Physician Practices is amultiple site organization consisting of ambulatory clinics and hospital sitesin [place], [place], [place] and [place]. This disclosure is being madepursuant to the Care Everywhere program and may not contain all information available regarding this patient. Last updated 17.[facility] Allergies * Doxycycline(GI Discomfort) Medications * Be aware that medications may not be up to date on this document. Alwaysverify current medications with the patient. * cetirizine (ZYRTEC) 10 MG tablet Take 10 mg by mouth daily. * Pseudoephedrine-Guaifenesin (MUCINEX D) 120-1200 MG TB12(Started 07/13/2013) Take 1 Tab by mouth 2 times daily. * fluticasone propionate (FLONASE) 50 MCG/ACT nasal spray(Started 05/20/2015) [employer]gate 1 [employer]gate into each nostril 2 times daily 11 refills left * albuterol (PROVENTIL;VENTOLIN) (2.5 MG/3ML) 0.083% nebulizer solution(Started 04/03/2017) Inhale 2.5 mg by mouth every 6 hours 1 refill remaining * citalopram (CELEXA) 40 MG tablet(Started 04/28/2018) Take 1 tablet by mouth once daily 1 refill remaining * lisinopril-hydroCHLOROthiazide (PRINZIDE; ZESTORETIC) 20-25 MG tablet(Started 05/26/2018) Take 1 tablet by mouth once daily 1 refill remaining * ALPRAZolam (XANAX) 0.5 MG tablet(Started 05/26/2018) Take 1 tablet by mouth 3 times daily as needed FOR ANXIETY. * budesonide-formoterol (SYMBICORT) 160-4.5 MCG/ACT inhaler(Started 08/13/2019) Inhale 2 puffs by mouth 2 times daily 3 refills by 08/12/2020 * Albuterol Sulfate (PROAIR RESPICLICK) 108 (90 Base) MCG/ACT(Started 07/21/2020) 2 puffs every 6 hours as needed. 5 refills by 07/21/2021 Active Problems Problem Noted Date Diagnosed Date Enlarged lymph node 10/08/2019 Post-surgical hypothyroidism 06/15/2019 Papillary thyroid carcinoma 04/06/2019 Thyroid nodule 03/06/2019 Vitamin B12 deficiency 03/06/2019 Class 3 severe obesity due t o excess calories with serious comorbidity and body mass index (BMI) of 45.0 to 49.9 in adult 02/27/2019 Dyspnea on exertion 02/27/2019 Elevated cholesterol 02/27/2019 Esophageal dysphagia 02/27/2019 Schatzki's ring 02/27/2019 Chronic fatigue 12/29/2018 Vitamin D deficiency 06/12/2018 Chronic allergic rhinitis 11/29/2017 Allergic rhinitis Chronic sinusitis Anxiety disorder Depression Hypertension MARTINA (obstructive sleep apnea) Asthma Immunizations * INFLUENZA VACCINE, TRIV. (AFLURIA, FLUZONE TRIVALENT; 6MO+) (IIV3)(Given 02/09/2013) * Covid Pfizer primary monovalent 12+ yr 0.3mL Purple cap(Given 08/03/2020, 07/13/2020) * DT(Given 12/13/2009) * INFLUENZA VACCINE(Given 12/14/2009, 02/25/2006) * Influenza Pf Intradermal (ADULT)(Given 02/08/2012) * PNEUMOCOCCAL PPSV23(Given 04/19/2014, 02/26/2008) * TD (ADULT), 5 LF TETANUS TOXOID, ADSORBED, PF(Given 03/29/2003) * TD (AGE 7-ADULT)(Given 03/29/2003) * TDAP (7yrs+)(Given 06/12/2009) Social History Tobacco Use Types Packs/Day Years Used Date Smoking Tobacco: Passive Smo [place] Exposure - Never Smoker Smokeless Tobacco: Never Alcohol Use Standard Drinks/Week Comments No 0 (1 standard drink = 0.6 oz pur e alcohol) Sex and Gender Information Value Date Recorded Sex Assigned at Not on file Gender Identity Not on file Sexual Orientation Not on file Last Filed Vital Signs Vital Sign Reading Time Taken Comments Blood Pressure 126/90 05/05/2020 12:18 PM VEHICLE DAMAGE APPRAISER Pulse 96 05/05/2020 12:18 PM VEHICLE DAMAGE APPRAISER Temperature 36.2 C (97.1 F) 05/05/2020 12:18 PM VEHICLE DAMAGE APPRAISER Respiratory Rate 18 05/05/2020 12:18 PM VEHICLE DAMAGE APPRAISER Oxygen Saturation 93% 05/05/2020 12:18 PM VEHICLE DAMAGE APPRAISER roomair Inhaled Oxygen Concentration 21% 08/13/2019 9 :08 AM CDT roomair Weight 134.3 kg (296 lb) 05/05/2020 12:18 PM VEHICLE DAMAGE APPRAISER Height 170.2 cm (5' 7 ) 05/05/2020 12:18 PM VEHICLE DAMAGE APPRAISER Body Mass Index 46.36 05/05/2020 12:18 PM VEHICLE DAMAGE APPRAISER Procedures * SPIROMETRY PRE & POST BRONCHODILATOR(Performed 05/03/2020) Performed for Moderate persistent asthma with (acute) exacerbation (HCC) * XR CHEST 2VW(Performed 08/13/2019) Performed for Shortness of breath * HELICOBACTER PYLORI UREASE (STL)(Performed 02/23/2019) Performed for Diagnosis unknown * [place] ED EGD FLEX TRANSORAL DX(Performed 02/23/2019) * FL UGI SERIES(Performed 11/14/2018) Performed for Morbid obesity (HCC) * XR CHEST 2VW(Performed 05/26/2018) Performed for Restrictive lung disease * COMPLETE PFT W/WO BRONCHODILATOR(Performed 05/07/2018) Performed for Mild persistent asthma without complication (HCC) * PFT-SPIROMETRY ONLY(Performed 04/04/2015) Performed for Mild intermittent asthma without complication (HCC) * PFT-SPIROMETRY ONLY(Performed 04/21/2014) Performed for Mild intermittent asthma (HCC) * COMPLETE PFT W/WO BRONCHODILATOR(Performed 02/09/2013) Performed for Need for prophylactic vaccination and inoculation against influenza, Mild intermittent asthma (HCC), Allergic Rhinitis, Chronic Sinusitis, Anxiety disorder, Depression * COMPLETE PFT W/WO BRONCHODILATOR(Performed 02/08/2012) Performed for Mild intermittent asthma (HCC), Allergic rhinitis, Chronic sinusitis, Anxiety disorder, Depression * COMPLETE PFT W/WO BRONCHODILATOR(Performed 02/09/2011) Performed for Mild intermittent asthma (HCC), Allergic rhinitis, Chronic sinusitis, Anxiety disorder, Depression * CARDIAC EKG ORDER(Performed 04/21/2010) * CARDIAC EKG ORDER(Performed 04/20/2010) * URINALYSIS REFLEX TO MICROSCOPIC NO CULTURE(Performed 04/19/2010) * PTT(Performed 04/19/2010) * PT-INR(Performed 04/19/2010) * MYOGLOBIN BLOOD(Performed 04/19/2010) * TROPONIN I(Performed 04/19/2010) * COMPREHENSIVE METABOLIC PANEL(Performed 04/19/2010) * CBC W AUTO DIFFERENTIAL(Performed 04/19/2010) * HCG URINE QUALITATIVE - POINT OF CARE(Performed 04/19/2010) * XR CHEST 2VW(Performed 04/19/2010) Performed for Dizziness and giddiness * COMPLETE PFT W/WO BRONCHODILATOR(Performed 02/07/2010) Performed for Mild intermittent asthma (HCC), Allergic rhinitis, Chronic sinusitis, Anxiety disorder, Depression * PFT-LAB(Performed 02/07/2010) * D-DIMER(Performed 12/28/2009) * MRI LUMBAR SPINE WO CONTRAST(Performed 12/28/2009) Performed for Numbness and tingling of both legs, Mild intermittent asthma (HCC), Allergic rhinitis, Chronic sinusitis, Depression * URINALYSIS REFLEX TO MICROSCOPIC NO CULTURE(Performed 12/28/2009) * HCG URINE QUALITATIVE - POINT OF CARE(Performed 12/28/2009) * COMPREHENSIVE METABOLIC PANEL(Performed 12/28/2009) * CBC W AUTO DIFFERENTIAL(Performed 12/28/2009) * COMPREHENSIVE METABOLIC PANEL(Performed 12/14/2009) * CBC W AUTO DIFFERENTIAL(Performed 12/14/2009) * URINALYSIS REFLEX TO MICROSCOPIC NO CULTURE(Performed 12/13/2009) * CT CERVICAL SPINE WO CONTRAST(Performed 12/13/2009) Performed for Fall * CT HEAD WO CONTRAST(Performed 12/13/2009) Performed for Fall * XR TIBIA FIBULA BILAT 2VW(Performed 12/13/2009) Performed for Fall * XR FEMUR BILAT 2VW(Performed 12/13/2009) Performed for Fall * XR HAND LEFT 3VW OR MORE(Performed 12/13/2009) Performed for Fall * XR ELBOW RIGHT 3VW OR MORE(Performed 12/13/2009) Performed for Fall * XR PELVIS 1 OR 2VW(Performed 12/13/2009) Performed for Fall * HCG URINE QUALITATIVE - POINT OF CARE(Performed 12/13/2009) * PFT-LAB(Performed 05/11/2008) * XR CHEST 2VW(Performed 05/05/2008) Performed for Unspecified Asthma (HCC) * BLOOD GASES ART + LYTES PANEL(Performed 05/05/2008) Performed for Unspecified Asthma (HCC) Results * SPIROMETRY PRE & POST BRONCHODILATOR (05/03/2020 12:00 PM VEHICLE DAMAGE APPRAISER) 05/03/2020 12:0 0 PM VEHICLE DAMAGE APPRAISER Narrative Procedure Note Chucho Gallardo MD - 05/03/2020 11:59 PM CST [facility] PULMONARY FUNCTION TEST REPORT PATIENT: LARISA JEROME MR#: [id number] ADMIT DATE: 05/03/2020 CSN: [id number] DATE OF PROCEDURE: 05/03/2020 :1965 PHYSICIAN: Chucho Gallardo MD REFERRING PHYSICIAN: Chucho Gallardo MD FINDINGS: 1. Baseline spirometry reveals normal expiratory flows. 2. Following administration of bronchodilator, there is no significant change in expiratory flows. 3. FEV1/FVC ratio is normal. 4. Flow volume loop has a normal configuration. IMPRESSION: Normal spirometry. There is no significant obstructivelung disease or bronchodilator response. There is no spirometric evidencefor restrictive lung disease. Compared to the previous spirometry from thePFT of 02/08/2012, expiratory flows have slightly decreased, but remain within normal limits. Overall this is consistent with relatively stable, essentially normal pulmonary function since the prior spirometry. Chucho Cantrell MD MIRIAN/MODL #:[id number] Chucho Gallardo MD RESPIRATORY THERAPY ORDERABLES Performing Organization Address City/[facility]/ZIP Co de Phone Number [facility] * XR CHEST 2VW (08/13/2019 8:19 AM CDT) Only the most recent of4 resultswithin the time period is included. Anatomical Region Laterality Modality Chest Radiographic Nilam ging 08/13/2019 8:30 AM CDT Impressions 08/13/2019 8:31 AM CDT No acute disease in the chest. *Reading Radiologist: Sis Miller on 08/13/2019 at 8:31 AM Narrative 08/13/2019 8:31 AM CDT PA AND LATERAL CHEST INDICATION: Shortness of breath FINDINGS: The lungs are clear. The mediastinal contour and heart size are within normal limits. The pulmonary vascularity is normal. The osseous structures are unremarkable. Procedure Note Sis Miller MD - 08/13/2019 PA AND LATERAL CHEST INDICATION: Shortness of breath FINDINGS: The lungs are clear. The mediastinal contour and heart size are within normal limits. The pulmonary vascularity is normal. The osseous structures are unremarkable. IMPRESSION No acute disease in the chest. *Reading Radiologist: Sis Miller on 08/13/2019 at 8:31 AM Chucho Gallardo MD DIAGNOSTIC IMAGING O RDERABLES * HELICOBACTER PYLORI UREASE (STL) (02/23/2019 8:15 AM VEHICLE DAMAGE APPRAISER) Helicobacter pylori Urease Initial Negative Negative 02/24/2019 4:33 PM VEHICLE DAMAGE APPRAISER [facility] Helicobacter pylori Urease Final Negative Negative 02/24/2019 4:33 PM VEHICLE DAMAGE APPRAISER [facility] Comment:This is an appended report. These results have been appended to a previously preliminary verified report. Microbiology GASTRIC ANTRAL BIOPSY SPECIMEN / Unknown 02/23/2019 8:15 AM VEHICLE DAMAGE APPRAISER 02/23/2019 10:15 AM VEHICLE DAMAGE APPRAISER Ilya Varela MD LAB - MICROBIOLOGY O RDERABLES Performing Organization Address City/[facility]/ZIP Co de Phone Number [facility] [address] [place] [address] * FL UGI SERIES WO KUB (11/14/2018 1:09 PM CDT) Anatomical Region Laterality Modality Abdomen Radiographic Nilam ging 11/14/2018 2:04 PM CDT Impressions 11/14/2018 2:34 PM CDT A small sliding hiatal hernia is present. Upper GI study is otherwise unremarkable. Edited by Sylvia Euceda on 11/14/2018 2:26 PM Reading Radiologist: Teri Tatum MD on 11/14/2018 at 2:34 PM Narrative 11/14/2018 2:34 PM CDT UPPER GI STUDY WITH KUB INDICATION: Morbid obesity. Preop bariatric surgery. TECHNIQUE: Effervescent granules, heavy and thin barium were administered orally. A total of 27 images of the upper GI tract were obtained. 1 minute fluoroscopy was provided. FINDINGS: The esophagus is normal in course and in caliber. No esophageal stricture or mass is seen. There is a small sliding hiatal hernia. Gastric contours are normal. Gastric mucosal pattern is normal. The stomach empties readily into the duodenal bulb. Proximal small bowel is normal in caliber and in fold pattern. Procedure Note Teri Ttaum MD - 11/14/2018 UPPER GI STUDY WITH KUB INDICATION: Morbid obesity. Preop bariatric surgery. TECHNIQUE: Effervescent granules, heavy and thin barium were administered orally. A total of 27 images of the upper GI tract were obtained. 1 minute fluoroscopy was provided. FINDINGS: The esophagus is normal in course and in caliber. No esophageal stricture or mass is seen. There is a small sliding hiatal hernia. Gastric contours are normal. Gastric mucosal pattern is normal. The stomach empties readily into the duodenal bulb. Proximal small bowel is normal in caliber and in fold pattern. IMPRESSION A small sliding hiatal hernia is present. Upper GI study is otherwise unremarkable. Edited by Sylvia Euceda on 11/14/2018 2:26 PM Reading Radiologist: Teri Tatum MD on 11/14/2018 at 2:34 PM Ilya Varela MD FLUOROSCOPY ORDERABL ES * COMPLETE PFT W/WO BRONCHODILATOR (05/07/2018 3:07 PM CDT) Narrative [facility] RESULT SCAN - 05/07/2018 3:07 PM CDT Ritu Ricketts, Respiratory Care Practitioner 05/07/2018 3:07 PM See scanned results Chucho Gallardo MD RESPIRATORY THERAPY ORDERABLES Performing Organization Address [facility] Co de Phone Number [facility] RESULT SCAN * PFT-SPIROMETRY ONLY (04/04/2015 12:00 PM VEHICLE DAMAGE APPRAISER) 04/04/2015 12:0 0 PM VEHICLE DAMAGE APPRAISER Narrative Transcriptions Chucho Gallardo MD - 04/04/2015 2:21 PM CST [facility] PULMONARY FUNCTION TEST REPORT PATIENT: LARISA JEROME MR#: [id number] ADMIT DATE: 04/04/2015 CSN: [id number] DATE OF PROCEDURE: 04/04/2015 :1965 PHYSICIAN: Chucho Gallardo MD REFERRING PHYSICIAN: Chucho Gallardo MD 1. Baseline spirometry reveals normal expiratory flows. 2. Following administration of bronchodilator, there is no significant change in expiratory flows. 3. FEV1/FVC ratio is normal. 4. Flow volume loop has a normal configuration. IMPRESSION: Normal spirometry. There is no evidence for anysignificant obstructive or restrictive lung disease. Compared to prior spirometryfrom 04/19/2014, expiratory flows have slightly decreased. Overall, this is consistent with relatively stable, essentially normal spirometry sincethe prior study. Chucho Cantrell MD MIRIAN/MODL #:[id number] Chucho Gallardo MD RESPIRATORY THERAPY ORDERABLES Performing Organization Address [facility] Co de Phone Number [facility] * PFT-SPIROMETRY ONLY (04/21/2014 7:26 AM VEHICLE DAMAGE APPRAISER) Narrative [facility] RESULT SCAN - 04/21/2014 7:26 AM VEHICLE DAMAGE APPRAISER Ritu Soriano LAB SPECIALIST 04/21/2014 7:26 AM See scanned results Chucho Gallardo MD RESPIRATORY THERAPY ORDERABLES Performing Organization Address [facility] Co de Phone Number [facility] RESULT SCAN * COMPLETE PFT W/WO BRONCHODILATOR (02/09/2013 12:00 PM VEHICLE DAMAGE APPRAISER) 02/09/2013 12:0 0 PM VEHICLE DAMAGE APPRAISER Narrative Transcriptions Chucho Gallardo MD - 02/09/2013 1:08 PM CST [facility] PULMONARY FUNCTION TEST REPORT PATIENT: LARISA JEROME MR#: [id number] ADMIT DATE: 02/09/2013 CSN: [id number] DATE OF PROCEDURE: 02/09/2013 :1965 PHYSICIAN: Chucho Gallardo MD REFERRING PHYSICIAN: 1. Baseline spirometry reveals normal expiratory flows. 2. Following administration of bronchodilator, there is no significant change in expiratory flows. 3. FEV1/FVC ratio is normal. 4. Lung volumes are within normal limits. 5. Gas transfer capacity is diminished but corrects for lung volume. 6. Flow volume loop has a normal configuration. IMPRESSION: There is no significant obstructive lung disease. There isno restrictive lung disease. Gas transfer capacity is mildly decreased but corrects for lung volume. Compared to the prior PFT from 02/08/2012,there has been a slight decrease in expiratory flows, lung volumes and gastransfer capacity, but all remain within normal limits. Overall, this isconsistent with relatively stable and still essentially normal pulmonary functionsince the prior PFT. Chucho Cantrell MD MIRIAN/MODL #:[id number] Chucho Gallardo MD RESPIRATORY THERAPY ORDERABLES Performing Organization Address City/[facility] Co de Phone Number [facility] * COMPLETE PFT W/WO BRONCHODILATOR (02/08/2012) 02/08/2012 Narrative Transcriptions Chucho Gallardo MD - 02/08/2012 10:39 AM CST [facility] Pulmonary Function Test [facility] PULMONARY FUNCTION TEST REPORT PATIENT: LARIAS JEROME AMR#: [id number] ADMIT DATE: 02/08/2012CCT#: [id number] DATE OF PROCEDURE: 02/08/2012DOB: 1965 PHYSICIAN: Chucho Gallardo MD REFERRING PHYSICIAN: Chucho Gallardo MD 1.Baseline spirometry reveals normal expiratory flows. 2.Following administration of bronchodilator there is a minimal increasein expiratory flows. 3.FEV1/FVC ratio is normal. 4.Lung volumes are within normal limits. 5.Gas transfer capacity is mildly decreased, but corrects for lungvolume. 6.Flow volume loop has a normal configuration. IMPRESSION: Normal expiratory flows, but with a minimal bronchodilatorresponse suggesting some reversible airway obstruction. There is norestrictive lung disease. Gas transfer capacity is diminished, butcorrects for lung volume. Compared to the prior pulmonary function testfrom 02/09/2011, expiratory flows and lung volumes have not significantlychanged and there has been a slight increase in gas transfer capacity.Overall this is consistent with stable, essentially normal pulmonaryfunction since the prior pulmonary function test. Chucho Gallardo MD MIRIAN/MedQ #:[id number] Chucho Gallardo MD RESPIRATORY THERAPY ORDERABLES [facility] * COMPLETE PFT W/WO BRONCHODILATOR (02/09/2011) 02/09/2011 Narrative Transcriptions Chucho Gallardo MD - 02/09/2011 10:41 AM CST [facility] Pulmonary Function Test [facility] PULMONARY FUNCTION TEST REPORT PATIENT: LARISA JEROME MR#: [id number] ADMIT DATE: 02/09/2011 DATE OF PROCEDURE: 02/09/2011 : 1965 PHYSICIAN: Chucho Gallardo MD 1. Baseline spirometry reveals normal expiratory flows. 2. Following administration of bronchodilator there is no significantchange in expiratory flows. 3. Lung volumes are within normal limits. 4. Gas transfer capacity is diminished, but corrects for lung volume. 5. Flow volume loop has a normal configuration. IMPRESSION: There is no obstructive lung disease. There is no restrictivelung disease. Gas transfer capacity is diminished, but corrects for lungvolume. Compared to the prior pulmonary function test from 02/07/2010expiratory flows have not significantly changed, lung volumes remainstable, gas transfer capacity is slightly decreased, but overall this isconsistent with relatively stable, essentially normal pulmonary functionsince the prior study. Chucho Gallardo MD MIRIAN/MedQ #:[id number] Chucho Gallardo MD RESPIRATORY THERAPY ORDERABLES [facility] * CARDIAC EKG ORDER (04/21/2010 8:05 AM VEHICLE DAMAGE APPRAISER) Only the most recent of2 resultswithin the time period is included. Narrative Procedure Note Document, Scanned - 04/21/2010 7:00 AM VEHICLE DAMAGE APPRAISER Scanned Document CARDIAC SERVICES ORD ERABLES * URINALYSIS ROUTINE AUTO (04/19/2010 3:52 PM VEHICLE DAMAGE APPRAISER) Only the most recent of3 resultswithin the time period is included. Color UA YELLOW [facility] Character UA CLOUDY [facility] Specific [place] UA 1.030 1.005 - 1.0300 [facility] pH UA 5.5 4.6 - 8.0 pH Units [facility] Leukocyte UA SMALL Negative /ul [facility] Nitrite UA NEGATIVE Negative [facility] Protein UA NEGATIVE Negative mg/dl [facility] Glucose UA NEGATIVE Normal mg/dl [facility] Ketone UA NEGATIVE Negative mg/dl [facility] Urobilinogen UA 0.2 Normal Josemanuel Units [facility] Bilirubin UA NEGATIVE Negative mg/dl [facility] Blood UA SMALL Negative /ul [facility] WBC UA 20-50 <5 /HPF [facility] RBC UA 0-2 <5 /HPF [facility] Epithelial Cell UA 10-20 <5 /HPF [facility] Casts UA 5-10 <2 /LPF [facility] Bacteria UA MODERATE [facility] URINE SPECIMEN OBTAINED BY CLEAN CATCH PROCEDURE / Unknown 04/19/2010 3:52 PM VEHICLE DAMAGE APPRAISER 04/19/2010 3:52 PM VEHICLE DAMAGE APPRAISER David Heath MD LAB - URINALYSIS ORD ERABLES Performing Organization Address [facility] Co de Phone Number [facility] [address] [place] [address] * TROPONIN I (04/19/2010 3:37 PM VEHICLE DAMAGE APPRAISER) Troponin I <0.10 SEE BELOW ng/ml [facility] Comment: Normal <0.10 [place]ola Zone 0.10-0.99 Positive >=1.00 SERUM OR PLASMA SPECIMEN / Unknown 04/19/2010 3:37 PM VEHICLE DAMAGE APPRAISER 04/19/2010 3:49 PM VEHICLE DAMAGE APPRAISER Narrative [facility] - 04/19/2010 4:17 PM VEHICLE DAMAGE APPRAISER Perform on patients greater than 35* David Heath MD LAB - CHEMISTRY ORDE SUSANNE Performing Organization Address [facility] Co de Phone Number [facility] [address] [place] [address] * MYOGLOBIN BLOOD (04/19/2010 3:37 PM VEHICLE DAMAGE APPRAISER) Myoglobin 33.5 0.0 - 110.0 ng/ml [facility] SERUM OR PLASMA SPECIMEN / Unknown 04/19/2010 3:37 PM VEHICLE DAMAGE APPRAISER 04/19/2010 3:49 PM VEHICLE DAMAGE APPRAISER Narrative [facility] - 04/19/2010 4:17 PM VEHICLE DAMAGE APPRAISER Perform on patients greater than 35* David Heath MD LAB - CHEMISTRY ORDE SUSANNE Performing Organization Address [facility] de Phone Number [facility] [address] [place] [address] * PTT (04/19/2010 3:37 PM VEHICLE DAMAGE APPRAISER) PTT 30.3 24.0 - 32.0 seconds [facility] BLOOD SPECIMEN / Unknown 04/19/2010 3:37 PM VEHICLE DAMAGE APPRAISER 04/19/2010 3:49 PM VEHICLE DAMAGE APPRAISER Narrative [facility] - 04/19/2010 4:08 PM VEHICLE DAMAGE APPRAISER Perform for patients taking warfari* David Heath MD LAB - COAGULATION OR DERABLES Performing Organization Address City/[facility] Co de Phone Number [facility] [address] [place] [address] * PT-INR (04/19/2010 3:37 PM VEHICLE DAMAGE APPRAISER) Pathologist [facility] PT 9.8 9.4 - 11.2 seconds [facility] INR 0.9 SEE BELOW [facility] Comment: 0.9-1.1 Normal 2.0-3.0 Conventional 2.5-3.5 Intensive BLOOD SPECIMEN / Unknown 04/19/2010 3:37 PM VEHICLE DAMAGE APPRAISER 04/19/2010 3:49 PM VEHICLE DAMAGE APPRAISER Narrative [facility] - 04/19/2010 4:08 PM VEHICLE DAMAGE APPRAISER Perform for patients taking warfari* David Heath MD LAB - COAGULATION OR DERABLES Performing Organization Address [facility] de Phone Number [facility] [address] [place] [address] * (ABNORMAL) CBC W AUTO DIFFERENTIAL (04/19/2010 3:37 PM VEHICLE DAMAGE APPRAISER) Only the most recent of3 resultswithin the time period is included. Pathologist [facility] WBC 10.0 4.5 - 11.0 1000/mm3 [facility] RBC 4.72 4.2 - 5.4 10X6 [facility] Hemoglobin 12.5 12.0 - 16.0 gm/dl [facility] Hematocrit 38.4 36.0 - 48.0 % [facility] MCV 81.4 80.0 - 99.0 fl [facility] MCH 26.5 25.0 - 31.0 pg [facility] MCHC 32.6 32.0 - 36.0 gm/dl [facility] RDW 14.8(H) 11.5 - 14.5 % [facility] Platelet Count 339 130.0 - 400.0 1000/mm3 [facility] Granulocytes % 66.8 40.0 - 70.0 % [facility] Lymphocytes % 23.4 22.0 - 40.0 % [facility] Monocytes % 7.1 2.0 - 10.0 % [facility] Eosinophils % 2.4 0.0 - 6.0 % [facility] Basophils % 0.3 0.0 - 3.0 % [facility] Granulocytes Absolute 6.66 1.8 - 7.7 [facility] Lymphocytes Absolute 2.33 1.0 - 5.4 [facility] Monocytes Absolute 0.71 0.1 - 1.1 [facility] Eosinophils Absolute 0.24 0.0 - 0.7 [facility] Basophils Absolute 0.03 0.0 - 0.2 [facility] Comment Manual Diff Not Indicated [facility] BLOOD SPECIMEN / Unknown 04/19/2010 3:37 PM VEHICLE DAMAGE APPRAISER 04/19/2010 3:49 PM VEHICLE DAMAGE APPRAISER Narrative [facility] - 04/19/2010 3:59 PM VEHICLE DAMAGE APPRAISER Perform for patients taking warfari* David Heath MD LAB - HEMATOLOGY ORD ERABLES [facility] [address] [place] [address] * (ABNORMAL) COMPREHENSIVE METABOLIC PANEL (04/19/2010 3:37 PM VEHICLE DAMAGE APPRAISER) Only the most recent of3 resultswithin the time period is included. BUN 19(H) 7.0 - 17.0 mg/dl [facility] Sodium 141 137 - 145 mmol/L [facility] Potassium 4.1 3.6 - 5.0 mmol/L [facility] Chloride 103 98.0 - 107.0 mmol/L [facility] Glucose 113(H) 70 - 105 mg/dl [facility] Creatinine 0.7 0.52 - 1.05 mg/dl [facility] AST 23 14.0 - 36.0 U/L [facility] Alkaline Phosphatase 120 38.0 - 126.0 U/L [facility] Calcium 9.9 8.4 - 10.2 mg/dl [facility] Bilirubin Total <0.1(L) 0.2 - 1.3 mg/dl [facility] Albumin 4.0 3.5 - 5.0 gm/dl [facility] Protein Total 7.1 6.3 - 8.2 gm/dl [facility] CO2 27 22.0 - 30.0 mEq/L [facility] ALT 26 9.0 - 52.0 U/L [facility] eGFR by MDRD 91.33 ml/min/1.7 3m2 [facility] BLOOD SPECIMEN / Unknown 04/19/2010 3:37 PM VEHICLE DAMAGE APPRAISER 04/19/2010 3:49 PM VEHICLE DAMAGE APPRAISER Narrative [facility] - 04/19/2010 4:05 PM VEHICLE DAMAGE APPRAISER Perform for patients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
--- OUTSIDE RECORDS SUMMARY | 2024-05-11 19:39 | XMS_ITS | Clinical Summary ---
Author Organization [facility] Address [address] [place] [address] Care Team Providers Care Computer System Validation Specialist Name Role Phone Chucho Gallardo MD Unavailable [phone] Primitivo Wagner MD Primary Care Provider [phone] Source Comments [facility],non-owned Affiliates and Associated Physician Practices is amultiple site organization consisting of ambulatory clinics and hospital sitesin [place], [place], [place] and [place]. This disclosure is being madepursuant to the Care Everywhere program and may not contain all information available regarding this patient. Last updated 17.[facility] Allergies Active Allergy Reactions Criticality Noted Date Comments Doxycycline GI Discomfort 05/16/2018 Medications * Be aware that medications may not be up to date on this document. Alwaysverify current medications with the patient. Medication Sig Dispensed Refills Start Date End Date Status cetirizine (ZYRTEC) 10 MG tablet Take 10 mg by mouth daily. Active Pseudoephedrine-Guaife nesin (MUCINEX D) 120-1200 MG TB12 Take 1 Tab by mouth 2 times daily. 48 Tab 0 07/13/2013 Active fluticasone propionate (FLONASE) 50 MCG/ACT nasal sprayIndications:Acute recurrent sinusitis, unspecified location,Mild persistent asthma with acute exacerbation (HCC) [place] 1 [place] into each nostril 2 times daily 1 Bottle 11 05/20/2015 Active albuterol (PROVENTIL;VENTOLIN) (2.5 MG/3ML) 0.083% nebulizer solution Inhale 2.5 mg by mouth every 6 hours 125 vial 1 04/03/2017 Active citalopram (CELEXA) 40 MG tabletIndications:Othe r depression Take 1 tablet by mouth once daily 30 tablet 1 04/28/2018 Active lisinopril-hydroCHLORO thiazide (PRINZIDE; ZESTORETIC) 20-25 MG tabletIndications:Esse ntial hypertension Take 1 tablet by mouth once daily 30 tablet 1 05/26/2018 Active ALPRAZolam (XANAX) 0.5 MG tabletIndications:Gene ralized anxiety disorder Take 1 tablet by mouth 3 times daily as needed FOR ANXIETY. 30 tablet 05/26/2018 Active budesonide-formoterol (SYMBICORT) 160-4.5 MCG/ACT inhalerIndications:Mod erate persistent asthma with (acute) exacerbation (HCC) Inhale 2 puffs by mouth 2 times daily 3 Inhaler 3 08/13/2019 Active Albuterol Sulfate (PROAIR RESPICLICK) 108 (90 Base) MCG/ACTIndications:Mil d intermittent asthma with acute exacerbation (HCC) 2 puffs every 6 hours as needed. 1 Each 5 07/21/2020 Active Active Problems Problem Noted Date Diagnosed Date Enlarged lymph node 10/08/2019 Post-surgical hypothyroidism 06/15/2019 Overview (08/13/2019): Last Assessment & Plan: Slightly lower levothyroxine dose from 237 mcg to 225 mcg Will check thyroid function test and adjust levothyroxine dose accordingly. TSH goal < 1 Last Assessment & Plan: Slightly lower levothyroxine dose from 237 mcg to 225 mcg Will check thyroid function test and adjust levothyroxine dose accordingly. TSH goal < 1 Papillary thyroid carcinoma 04/06/2019 Overview (08/13/2019): T1N0Mo Stage I papillary thyroid cancer S/p TT Last Assessment & Plan: S/P total thyroidectomy 03/2019 Will plan follow-up with thyroid function test with a TSH goal < 1 Biochemical evaluation with thyroid tumor markers within next 1-2 months. Neck ultrasound for evaluation of the neck scheduled 10/2019 If above are in acceptable range, she probably requires no CARTER Discussed possible indications for CARTER and her recurrence risks Pathology is of low risk and may be reasonable to monitor for recurrence after surgery with no immediate need for CARTER Will follow Tg/Tg Abs for response and discuss with patient Given low papillary thyroid cancer risk and patient high risk for COVID-19, she prefer to remain home in next few weeks-months and avoid additional clinic visit if not absolutely necessary T1N0Mo Stage I papillary thyroid cancer S/p TT Last Assessment & Plan: S/P total thyroidectomy 03/2019 Will plan follow-up with thyroid function test with a TSH goal < 1 Biochemical evaluation with thyroid tumor markers within next 1-2 months. Neck ultrasound for evaluation of the neck scheduled 10/2019 If above are in acceptable range, she probably requires no CARTER Discussed possible indications for CARTER and her recurrence risks Pathology is of low risk and may be reasonable to monitor for recurrence after surgery with no immediate need for CARTER Will follow Tg/Tg Abs for response and discuss with patient Given low papillary thyroid cancer risk and patient high risk for COVID-19, she prefer to remain home in next few weeks-months and avoid additional clinic visit if not absolutely necessary Added automatically from request for surgery [id number] Thyroid nodule 03/06/2019 Vitamin B12 deficiency 03/06/2019 Class 3 severe obesity due t o excess calories with serious comorbidity and body mass index (BMI) of 45.0 to 49.9 in adult 02/27/2019 Dyspnea on exertion 02/27/2019 Elevated cholesterol 02/27/2019 Esophageal dysphagia 02/27/2019 Schatzki's ring 02/27/2019 Chronic fatigue 12/29/2018 Vitamin D deficiency 06/12/2018 Chronic allergic rhinitis 11/29/2017 Allergic rhinitis Chronic sinusitis Anxiety disorder Overview (06/27/2009): with mild panic attacks Depression Hypertension MARTINA (obstructive sleep apnea) Overview (02/07/2012): on CPAP Asthma Immunizations Name Administration Dates Next Due INFLUENZA VACCINE, TRIV. (AF LURIA, FLUZONE TRIVALENT; 6MO+) (IIV3) 02/09/2013 Covid Pfizer primary monoval ent 12+ yr 0.3mL Purple cap 08/03/2020,07/13/2020 DT 12/13/2009 INFLUENZA VACCINE 12/14/2009,02/25/2006 Influenza Pf Intradermal (ADULT) 02/08/2012 PNEUMOCOCCAL PPSV23 04/19/2014,02/26/2008 TD (ADULT), 5 LF TETANUS TOXOID, ADSORBED, PF TD (AGE 7-ADULT) 03/29/2003 TDAP (7yrs+) 06/12/2009 Social History Tobacco Use Types Packs/Day Years [...] Comments Blood Pressure 126/90 05/05/2020 12:18 PM OXYGEN PLANT OPERATOR Pulse 96 05/05/2020 12:18 PM OXYGEN PLANT OPERATOR Temperature 36.2 C (97.1 F) 05/05/2020 12:18 PM OXYGEN PLANT OPERATOR Respiratory Rate 18 05/05/2020 12:18 PM OXYGEN PLANT OPERATOR Oxygen Saturation 93% 05/05/2020 12:18 PM OXYGEN PLANT OPERATOR roomair Inhaled Oxygen Concentration 21% 08/13/2019 9 :08 AM CDT roomair Weight 134.3 kg (296 lb) 05/05/2020 12:18 PM OXYGEN PLANT OPERATOR Height 170.2 cm (5' 7 ) 05/05/2020 12:18 PM OXYGEN PLANT OPERATOR Body Mass Index 46.36 05/05/2020 12:18 PM OXYGEN PLANT OPERATOR Plan of Treatment Health Maintenance Due Date Last Done Comments COLOGUARD (AGES 45-75) - COLON CA SCREENING 1966 COLON MONITORING 1966 COLONOSCOPY - COLON CA SCREENING 1966 CT COLONOGRAPHY - COLON CA SCREENING 1966 Colorectal Cancer Screening 1966 FIT - COLON CA SCREENING 1966 FLEX SIG - COLON CA SCREENING 1966 MAMMOGRAM 1966 PAP SMEAR 1966 HIV SCREENING 1981 HEPATITIS C SCREENING 09/08/1984 HEPATITIS B VACCINE (1 of 3 - 19+ 3-dose series) 1985 PNEUMOCOCCAL VACCINE 50+ (2 of 2 - PCV) 04/19/2015 04/19/2014, 02/26/2008 PNEUMOCOCCAL VACCINE (2 of 2 - PCV) 04/19/2015 04/19/2014, 02/26/2008 ZOSTER VACCINE (1 of 2) 2016 SCREENING FOR DIABETES 04/03/2017 1, 12/28/2009, 12/14/2009 DTAP/TDAP/TD VACCINES (5 - Td or Tdap) 12/14/2019 12/13/2009, 06/12/2009, 03/29/2003, Additional history exists LIPID TESTING 06/19/2023 06/18/2018 COVID-19 VACCINE (3 season) 2023 08/03/2020, 07/13/2020 INFLUENZA VACCINE (#1) 2023 3, 02/08/2012, 12/14/2009, Additional history exists DEPRESSION SCREENING 02/26/2024 HIB VACCINE Aged Out No longer eligi ble based on patient's age to complete this topic HPV VACCINE Aged Out No longer eligi ble based on patient's age to complete this topic MENINGOCOCCAL (Group B) VACCINE SHARED DECISION-MAKING Aged Out No longer eligible based on patient's age to complete this topic MENINGOCOCCAL GROUPS A/C/Y/W VACCINE Aged Out No longer eligible based on patient's age to complete this topic Procedures Procedure Name Priority Date/Time Associated Diagnosis Comments COMPREHENSIVE METABOLIC PANEL STAT 04/19/2010 3:37 PM OXYGEN PLANT OPERATOR from Last 3 Months or Most Recently Relevant to Health Maintenance Results * (ABNORMAL) COMPREHENSIVE METABOLIC PANEL (04/19/2010 3:37 PM OXYGEN PLANT OPERATOR) BUN 19(H) 7.0 - 17.0 mg/dl [facility] Sodium 141 137 - 145 mmol/L [facility] Potassium 4.1 3.6 - 5.0 mmol/L [facility] Chloride 103 98.0 - 107.0 mmol/L [facility] Glucose 113(H) 70 - 105 mg/dl [facility] Creatinine 0.7 0.52 - 1.05 mg/dl [facility] AST 23 14.0 - 36.0 U/L [facility] Alkaline Phosphatase 120 38.0 - 126.0 U/L [facility] Calcium 9.9 8.4 - 10.2 mg/dl [facility] Bilirubin Total <0.1(L) 0.2 - 1.3 mg/dl [facility] Albumin 4.0 3.5 - 5.0 gm/dl [facility] Protein Total 7.1 6.3 - 8.2 gm/dl [facility] CO2 27 22.0 - 30.0 mEq/L [facility] ALT 26 9.0 - 52.0 U/L [facility] eGFR by MDRD 91.33 ml/min/1.7 3m2 [facility] BLOOD SPECIMEN / Unknown 04/19/2010 3:37 PM OXYGEN PLANT OPERATOR 04/19/2010 3:49 PM OXYGEN PLANT OPERATOR Narrative [facility] - 04/19/2010 4:05 PM OXYGEN PLANT OPERATOR Perform for patients taking warfari* David Heath MD LAB - CHEMISTRY COREY SKINNER [facility] [address] [place] [address] from Last 3 Months or Most Recently Relevant to Health Maintenance Care Teams Computer System Validation Specialist Relationship Specialty Start Date End Date Primitivo Wagner MD [address] [place] [id number] PCP - General Internal Medicine 05/09/21 [place] [address] [facility] [address] [place] [address] Pulmonary Disease 02/09/13
--- OUTSIDE RECORDS SUMMARY | 2024-05-11 19:39 | XMS_ITS | Encounter Summary ---
Author Organization [facility] Address [address] [place] [address] Care Team Providers Care Lamination Machine Operator Name Role Phone Chucho Gallardo MD Unavailable [phone] Edita Portillo Primary Care Provider [phone] Primitivo Wagner MD Primary Care Provider [phone] Encounter Details Date Type Department Care Team (Late st Contact Info) Description 06/08/2020 [facility] Outpatient Visit [facility] - Pulmonology [address] [facility] [address] [place] [address] [place] [address] [facility] [address] [place] [address] Social History Tobacco Use Types Packs/Day Years [...] documented as of this encounter Visit Diagnoses Not on filedocumented in this encounter Care Teams Lamination Machine Operator Relationship Specialty Start Date End Date Edita Portillo APRN-CNP [address] [place] [id number] PCP - General Nurse Practitioner 11/14/18 05/08/21 Primitivo Wagner MD [address] [place] [id number] PCP - General Internal Medicine 05/09/21 [place] [id number] [address] Pulmonary Disease 02/09/13 documented as of this encounter
--- OUTSIDE RECORDS SUMMARY | 2024-05-11 19:39 | XMS_ITS | Clinical Summary ---
Author Organization [facility] Address [address] [facility] Attn: Epic Prelude ADT [place] [address] Care Team Providers Care Base Cloth Inspector Name Role Phone Ori Tuttle MD Primary Care Provider [phone] Social History Tobacco Use Types Packs/Day Years Used Date Smoking Tobacco: Never Assessed Comments Unknown Sex and Gender Information Value Date Recorded Sex Assigned at Not on file Legal Sex Female 3:28 AM COGENERATION TECHNICIAN Gender Identity Not on file Sexual Orientation Not on file Plan of Treatment Health Maintenance Due Date Last Done Comments DTAP/TDAP/TD VACCINES (1 - Tdap) 1985 HEPATITIS B VACCINES (1 of 3 - 19+ 3-dose series) 08/26 CERVICAL CANCER SCREENING 1996 BREAST CANCER SCREENING 2006 COLORECTAL SCREENING 09/14/2011 Colorectal Cancer Screening 09/14/2011 FIT-DNA Q 3 years 09/14/2011 FIT/FOBT Q 1 year 09/14/2011 Flex Sig/CT Colonography Q 5 years 09/14/2011 ZOSTER VACCINE (1 of 2) 2016 INFLUENZA VACCINE (#1) 2023 Care Teams Base Cloth Inspector Relationship Specialty Start Date End Date [facility] [address] [id number] PCP - General 12/20/99
--- OUTSIDE RECORDS SUMMARY | 2024-05-11 19:39 | XMS_ITS | Encounter Summary ---
Author Organization [employer] Address [address] [place] [address] Care Team Providers Care Wealth Management Consultant Name Role Phone Ori Tuttle MD Primary Care Provider [phone] Encounter Details Date Type Department Care Team (Latest Contact Info) Description 12/20/1999 Inpatient Historical HIS PATIENT IN A BED Kaylee Leon MD NO ADDRESS ON FILE Cindy Muñiz [place] [address] [facility] [place] [address] Other specified indication for care or intervention related to labor and delivery, delivered (Primary Dx) Social History Tobacco Use Types Packs/Day Years Used Date Smoking Tobacco: Never Assessed Comments Unknown Sex and Gender Information Value Date Recorded Sex Assigned at Not on file Legal Sex Female 3:28 AM BANQUET COOK Gender Identity Not on file Sexual Orientation Not on file documented as of this encounter Plan of Treatment Not on file documented as of this encounter Visit Diagnoses Diagnosis Other specified indication for care or intervention related to labor and delivery, delivered- Primary documented in this encounter Care Teams Wealth Management Consultant Relationship Specialty Start Date End Date Ori Tuttle MD [address] [facility] [address] [place] [address] PCP - General 12/20/99 documented as of this encounter
--- OUTSIDE RECORDS SUMMARY | 2024-05-11 19:39 | XMS_ITS | Referral Summary ---
Author Organization [facility] Address [address] [facility] [place] [address] Care Team Providers Care Outsole Handler Name Role Phone Chucho Gallardo MD Unavailable [phone] Primitivo Wagner MD Primary Care Provider [phone] Source Comments [facility],non-owned Affiliates and Associated Physician Practices is amultiple site organization consisting of ambulatory clinics and hospital sitesin [place], [place], [place] and [place]. This disclosure is being madepursuant to the Care Everywhere program and may not contain all information available regarding this patient. Last updated 17.[facility] Allergies Active Allergy Reactions Criticality Noted Date [...] location,Mild persistent asthma with acute exacerbation (HCC) Gate 1 Gate into each nostril 2 times daily 1 [...] necessary Added automatically from request for surgery [id number] Thyroid nodule 03/06/2019 Vitamin B12 deficiency 03/06/2019 [...] Comments Blood Pressure 126/90 05/05/2020 12:18 PM NEWSPAPER CORRESPONDENT Pulse 96 05/05/2020 12:18 PM NEWSPAPER CORRESPONDENT Temperature 36.2 C (97.1 F) 05/05/2020 12:18 PM NEWSPAPER CORRESPONDENT Respiratory Rate 18 05/05/2020 12:18 PM NEWSPAPER CORRESPONDENT Oxygen Saturation 93% 05/05/2020 12:18 PM NEWSPAPER CORRESPONDENT roomair Inhaled Oxygen Concentration 21% 08/13/2019 9 :08 AM CDT [facility] Weight 134.3 kg (296 lb) 05/05/2020 12:18 PM NEWSPAPER CORRESPONDENT Height 170.2 cm (5' 7 ) 05/05/2020 12:18 PM NEWSPAPER CORRESPONDENT Body Mass Index 46.36 05/05/2020 12:18 PM NEWSPAPER CORRESPONDENT Plan of Treatment Not on file Procedures Procedure Name Priority Date/Time Associated Diagnosis Comments COMPREHENSIVE METABOLIC PANEL STAT 04/19/2010 3:37 PM NEWSPAPER CORRESPONDENT from Last 3 Months or Most Recently Relevant to Health Maintenance Results * (ABNORMAL) COMPREHENSIVE METABOLIC PANEL (04/19/2010 3:37 PM NEWSPAPER CORRESPONDENT) BUN 19(H) 7.0 - 17.0 mg/dl [facility] Sodium 141 137 - 145 mmol/L [facility] Potassium 4.1 3.6 - 5.0 mmol/L [facility] Chloride 103 98.0 - 107.0 mmol/L [facility] Glucose 113(H) 70 - 105 mg/dl [facility] Creatinine 0.7 0.52 - 1.05 mg/dl [facility] AST 23 14.0 - 36.0 U/L [facility] Alkaline Phosphatase 120 38.0 - 126.0 U/L [facility] Calcium 9.9 8.4 - 10.2 mg/dl [facility] Bilirubin Total <0.1(L) 0.2 - 1.3 mg/dl [facility] Albumin 4.0 3.5 - 5.0 gm/dl [facility] Protein Total 7.1 6.3 - 8.2 gm/dl [facility] CO2 27 22.0 - 30.0 mEq/L [facility] ALT 26 9.0 - 52.0 U/L [facility] eGFR by MDRD 91.33 ml/min/1.7 3m2 [facility] BLOOD SPECIMEN / Unknown 04/19/2010 3:37 PM NEWSPAPER CORRESPONDENT 04/19/2010 3:49 PM NEWSPAPER CORRESPONDENT Narrative [facility] - 04/19/2010 4:05 PM NEWSPAPER CORRESPONDENT Perform for patients taking warfari* David Heath MD LAB - CHEMISTRY COREY SKINNER [facility] [address] [place] [address] from Last 3 Months or Most Recently Relevant to Health Maintenance Administered Medications Care Teams Outsole Handler Relationship Specialty Start Date End Date Primitivo Wagner MD [address] [place] [address] [id number] PCP - General Internal Medicine 05/09/21 [place] [address] [address] Pulmonary Disease 02/09/13
--- OUTSIDE RECORDS SUMMARY | 2024-05-11 19:39 | XMS_ITS | Encounter Summary ---
Author Organization [employer] Address [address] [place] [address] Care Team Providers Care Director Of Career Services Name Role Phone Ori Tuttle MD Primary Care Provider [phone] Encounter Details Date Type Department Care Team (Latest Contact Info) Description 02/23/1998 Outpatient Historical HIS PATIENT IN A BED Cindy Muñiz [place] [id number] [address] [facility] [place] [address] Placenta previa without hemorrhage, antepartum (Primary Dx) Social History Tobacco Use Types Packs/Day Years Used Date Smoking Tobacco: Never Assessed Comments Unknown Sex and Gender Information Value Date Recorded Sex Assigned at Not on file Legal Sex Female 3:28 AM CYBER SYSTEMS ENGINEER Gender Identity Not on file Sexual Orientation Not on file documented as of this encounter Plan of Treatment Not on file documented as of this encounter Visit Diagnoses Diagnosis Placenta previa without hemorrhage, antepartum- Primary documented in this encounter Care Teams Director Of Career Services Relationship Specialty Start Date End Date Ori Tuttle MD [address] [facility] [address] [place] [address] PCP - General 12/20/99 documented as of this encounter
--- OUTSIDE RECORDS SUMMARY | 2024-05-11 19:39 | XMS_ITS | Referral Summary ---
Author Organization [facility] Address [address] [place] [address] Care Team Providers Care Senior Java Programmer Analyst Name Role Phone Kristopher Cross MD Unavailable [phone] Edita Portillo NP Primary Care Provider [phone] Encounters Date Type Department Care Team Description 05/11/2024 8:45 AM CDT - 05/11/2024 9:30 AM CDT Surgery [facility] Endoscopy [id number] [place] [address] John Malhotra MD PhD COLON REMOVAL SNARE 05/11/2024 8:45 AM CDT Anesthesia Event [facility] Endoscopy [address] [place] [address] Travon Laboy MD 05/11/2024 6:57 AM CDT - 05/11/2024 10:49 AM CDT Hospital Encounter [facility] Endoscopy [address] [address] John Malhotra MD PhD Special screening for malignant neoplasms, colon Discharge Disposition: Discharge to home or self care 02/11/2024 1:56 PM DISTRIBUTION LEAD - 02/11/2024 11:59 PM DISTRIBUTION LEAD Hospital Encounter [facility] Breast [facility] ([facility]) [address] [place] [address] [phone] Mass of left breast, unspecified quadrant; Fibrocystic breast changes, unspecified laterality Discharge Disposition: Discharge to home or self care 02/11/2024 1:45 PM DISTRIBUTION LEAD - 02/11/2024 11:59 PM DISTRIBUTION LEAD Hospital Encounter [facility] [address] [place] [address] Mass of left breast, unspecified quadrant; Fibrocystic breast changes, unspecified laterality Discharge Disposition: Discharge to home or self care from Last 3 Months Allergies Active Allergy Reactions Criticality Noted Date Comments Nabumetone Shortness of breath,Wheezing High 021 Medications ALPRAZolam (XANAX) 0.5 mg tablet Take 1 tablet (0.5 mg total) by mouth 3 (three) times a day as needed for sleep or anxiety 04/03/19 20 Active cetirizine (ZyrTEC) 10 mg tablet Take 1 tablet (10 mg total) by mouth nightly 07/13/19 16 Active fluticasone propionate (FLONASE) 50 mcg/actuation nasal spray Administer 2 sprays into each nostril as needed 07/13/19 16 Active citalopram (CeleXA) 40 mg tablet Take 1 tablet (40 mg total) by mouth every morning 05/11/19 21 Active multivit novapoey-xdmx-TW-c alcium (THERA-M) 9 mg iron-400 mcg tabletIndications: Vitamin Deficiency Prevention Take 1 tablet by mouth 2 (two) times a day 60 tablet 11/24/19 22 Active cyanocobalamin (Vitamin B-12) 500 mcg tabletIndications: Prevention of Vitamin B12 Deficiency Take 1 tablet (500 mcg total) by mouth daily 30 tablet 11/24/19 22 Active docusate sodium (COLACE) 100 mg capsuleIndications :constipation,stoo l softener Take 1 capsule (100 mg total) by mouth 2 (two) times a day 60 capsule 2 12/26/19 22 Active DULoxetine 40 mg capsule,delayed release(DR/EC) Take 1 tablet by mouth daily 12/15/19 22 Active calcium carbonate-vitamin D3 1,250mg (500mg elemental) - 5 mcg (200 units) per tablet Take 1 tablet by mouth 3 (three) times a day 270 tablet 3 01/24/20 22 Active sodium, potassium & mag sulfates (SUPREP BOWEL KIT) 17.5-3.13-1.6 gram recon solnIndications:Stephen wel Evacuation Take 354 mL by mouth as directed Take 1st 1/2 at 6 pm evening prior to procedure. Take 2nd 1/2 6 hours prior to arrival (1 am). 354 mL 01/24/20 22 Active hydroCHLOROthiazid e (HYDRODIURIL) 25 mg tablet 02/10/20 22 Active levothyroxine (SYNTHROID) 150 mcg tablet Take 1 tablet (150 mcg total) by mouth daily 90 tablet 3 09/09/19 23 Active Mucus D 120-1,200 mg tablet extended release 12 hr Take by mouth every 12 (twelve) hours as needed 10/16/19 23 Active butalbital-acetami nophen-caffeine (FIORICET) 50-300-40 mg per capsule TAKE 1 CAPSULE BY MOUTH EVERY 6 HOURS NEEDED FOR PAIN OR MIGRAINE 10/04/19 23 Active ProAir RespiClick 90 mcg/actuation inhaler INHALE 2 PUFFS INTO THE LUNGS EVERY 4 (FOUR) HOURS NEEDED (COUGH, WHEEZING). 09/25/19 23 Active naltrexone-bupropi on 8-90 mg tablet extended releaseIndications :BMI 36.0-36.9,adult,We ight gain Take 1 tablet every AM for 1 week; then 1 tab. twice daily for 1 week; then 2 tabs AM, 1 tab PM for 1 week; then 2 tablets twice daily. 120 tablet 1 11/03/19 23 Active metFORMIN (GLUCOPHAGE) 500 mg tablet Take 1 tablet (500 mg total) by mouth daily with breakfast for 7 days, THEN 1 tablet (500 mg total) 2 (two) times a day with meals. 60 tablet 1 02/12/[address] (PROTONIX) 40 mg EC tablet TAKE 1 TABLET BY MOUTH TWICE A DAY 180 tablet 3 05/21/19 24 Active sod picosulf-mag ox-citric ac 10 mg-3.5 gram- 12 gram/175 mL solutionIndication s:Preoperative Bowel Preparation 03/12/24 @6:00 PM Drink 1 bottle (5.4oz) followed by 5 cups or more of clear liquids. Drink the second bottle on 03/13/24 @4:30 AM followed by 4 cups or more of clear liquids. Please refer to additional instructions per GI Call Center nurse. 350 mL 01/30/20 24 Active acetaminophen/d-br ompheniramin 500-1 mg tablet 2 tablets ( 1000mg ) every 6 hours oral Active albuterol (PROVENTIL,VENTOLI N) 2 mg tablet every 6 hours puffs Active ALPRAZolam (NIRAVAM) 0.5 mg disintegrating tablet 3 times daily as needed oral Active citalopram (CeleXA) 40 mg tablet 1 nightly oral Activ e fluticasone (VERAMYST) 27.5 mcg/actuation nasal spray 2 sprays each nostril as needed spray Active levothyroxine 200 mcg/mL solution 1 daily oral A ctive eszopiclone (LUNESTA) 2 mg tablet Take 1 tablet (2 mg total) by mouth daily 01/10/20 24 Active fluconazole (DIFLUCAN) 150 mg tablet Take one tablet now and you may repeat one tablet 72 hours for continued symptoms 01/10/20 24 Active methocarbamoL (ROBAXIN) 750 mg tablet take 1 tablet (750 mg) by oral route 3 times per day Oral 3 Active polymyxin B-trimethoprim (POLYTRIM) ophthalmic solution 08/08/19 24 Active traMADoL (ULTRAM) 50 mg tablet take 1 tablet (50 mg) by oral route every 6 hours as needed Oral [address] (CYMBALTA) 60 mg capsule Take by mouth daily 02/01/20 24 Active levothyroxine (SYNTHROID) 137 mcg tablet 02/10/20 24 Active cholecalciferol, vitamin D3, (Vitamin D3) 1,000 unit tablet,chewable 1 in morning oral Active lisinopril-hydroCH LOROthiazide (ZESTORETIC) 20-25 mg per tablet 1 nightly oral A ctive sod picosulf-mag ox-citric ac (Clenpiq) 10 mg-3.5 gram- 12 gram/175 mL solution 05/10/2024 at 6:00 PM Drink 1 bottle (5.4oz) of prep solution followed by 5 cups or more of clear liquids. 05/11/2024 at 3:45 AM drink the second 5.4 oz bottle of prep solution followed by 4 cups or more of clear liquids. 350 mL 05/07/19 25 Active ondansetron (ZOFRAN) 4 mg tablet Take 1 tablet (4 mg total) by mouth 3 (three) times a day as needed for nausea or vomiting 5 tablet 05/09/19 25 Active Active Problems Problem Noted Date Diagnosed Date Encounter for screening colonoscopy 11/25/2023 Constipation 11/25/2023 Prediabetes 02/11/2023 Weight loss counseling, encounter for 01/04/2023 Metabolic and nutritional disorder 01/04/2023 Disordered eating 01/04/2023 Assessment & Plan (01/04/2023 5:30 PM DISTRIBUTION LEAD): Sent QEWP to complete. Discussed/reviewed that CBT is the basis for successful treatment of disordered eating. Suggested providers including [facility] or Birdie Ledezma LCSW. Drug-induced constipation 01/04/2023 Assessment & Plan (01/04/2023 5:40 PM DISTRIBUTION LEAD): Recommended daily fiber supplement containing inulin or wheat dextrin. Discussed possible benefits w/r/t gut microbiome and weight. Miralax prn. Colon cancer screening 01/23/2022 Overview (01/23/2022): Added automatically from request for surgery [id number] Morbid (severe) obesity due to excess calories 0 11/21/2021 Morbid obesity 10/12/2021 Elevated glucose 06/09/2020 Polyarthralgia 06/09/2020 Positive ELISABET (antinuclear antibody) 06/09/2020 Shakiness 06/09/2020 Other chronic pain 05/10/2020 Back pain 08/17/2019 Post-surgical hypothyroidism 06/15/2019 Assessment & Plan (06/19/2022 1:24 PM CDT): Continue current levothyroxine dose. Will check thyroid function test and adjust levothyroxine dose accordingly. Assessment & Plan (06/13/2021 1:28 PM CDT): Lower levothyroxine dose by 200 mcg /week Take levothyroxine 200 mcg x 6 /week Recheck TFT in 3 months Assessment & Plan (07/11/2020 3:30 PM CDT): Continue current levothyroxine dose. Will check thyroid function test and adjust levothyroxine dose accordingly. May lower dose slightly to 200 mcg every day if suppressed given her symtpoms Assessment & Plan (06/15/2019 4:30 PM CDT): Slightly lower levothyroxine dose from 237 mcg to 225 mcg Will check thyroid function test and adjust levothyroxine dose accordingly. TSH goal < 1 Shortness of breath 06/15/2019 Overview (05/02/2021): Last Assessment & Plan: Current thyroid dose is appropriate for her body weight. Will check thyroid function test and discussed TSH goals. While patient has known history of seasonal allergies, asthma on treatment, MARTINA on treatment, and obesity, which can all need to shortness of breath, the worsening symptoms after surgery might require further evaluation. Patient reports no oxygen requirement. Advised to discuss further with her primary care provider if shortness of breath continues or worsens as she may require further evaluation/imaging. Slightly lower levothyroxine dose from 237 mcg to 225 mcg Patient agreed Assessment & Plan (06/15/2019 4:30 PM CDT): Current thyroid dose is appropriate for her body weight. Will check thyroid function test and discussed TSH goals. While patient has known history of seasonal allergies, asthma on treatment, MARTINA on treatment, and obesity, which can all need to shortness of breath, the worsening symptoms after surgery might require further evaluation. Patient reports no oxygen requirement. Advised to discuss further with her primary care provider if shortness of breath continues or worsens as she may require further evaluation/imaging. Slightly lower levothyroxine dose from 237 mcg to 225 mcg Patient agreed Papillary thyroid carcinoma (CMS/HCC) 04/06/2019 Overview (06/13/2021): T1N0Mo Stage I papillary thyroid cancer S/p TT Assessment & Plan (06/19/2022 1:25 PM CDT): S/P total thyroidectomy 03/2019 No CARTER to date given low risk and undetectable tumor markers Biochemical evaluation with thyroid tumor markers pending this year - requested for July Neck ultrasound unremarkable 04/2021 Assessment & Plan (06/13/2021 1:29 PM CDT): S/P total thyroidectomy 03/2019 No CARTER to date given low risk and undetectable tumor markers Biochemical evaluation with thyroid tumor markers unremarkable Neck ultrasound unremarkable 04/2021 Assessment & Plan (07/11/2020 3:29 PM CDT): S/P total thyroidectomy 03/2019 No CARTER to date given low risk and undetectable tumor markers TSH at goal 04/2020 Biochemical evaluation with thyroid tumor markers today Neck ultrasound unremarkable 04/2020 Assessment & Plan (06/15/2019 4:13 PM CDT): S/P total thyroidectomy 03/2019 Will plan follow-up [...] additional clinic visit if not absolutely necessary Class 3 severe obesity due t o excess calories with serious comorbidity and body mass index (BMI) of 45.0 to 49.9 in adult 02/27/2019 Assessment & Plan (06/19/2022 1:18 PM CDT): Improved and Lost about 100 Ib since she had sleeve gastrectomy 10/2021 Assessment & Plan (07/11/2020 3:27 PM CDT): Discussed life style changes and offered referral to weight management clinic Elevated cholesterol 02/27/2019 Schatzki's ring 02/27/2019 Blood in stool 12/29/2018 Chronic nonintractable headache 12/29/2018 Anxiety disorder 06/12/2018 Overview (05/02/2021): with mild panic attacks with mild panic attacks with mild panic attacks Overview: with mild panic attacks Asthma 06/12/2018 Chronic sinusitis 06/12/2018 Depressive disorder, atypical 06/12/2018 Hypertension 06/12/2018 MARTINA (obstructive sleep apnea) 06/12/2018 Overview (05/02/2021): on CPAP on CPAP on CPAP Overview: on CPAP Allergic rhinitis 11/29/2017 Fibrocystic breast changes 06/18/2011 Immunizations Immunization Administration Dates Next Due DT 12/13/2009 DTaP 12/13/2009 DTaP, Unspecified 12/13/2009,06/12/2009 Influenza, Quadrivalent, Spl it, Intramuscular 02/08/2012 Influenza, Trivalent, IM (MDV) 02/09/2013 Influenza, Unspecified 02/08/2012,12/14/2009,02/2006 Pfizer SARS-CoV-2 Monovalent Vaccination (12+ Yrs) PURPLE 08/03/2020,07/13/2020 Pneumococcal Polysaccharide PPV23 04/19/2014,02/2008 TD Preservative Free 03/29/2003 Td, adsorbed 03/29/2003 Tdap 06/12/2009 Social History Tobacco Use Types Packs/Day Years Used Date Smoking Tobacco: Never Smokeless Tobacco: Never Tobacco Cessation:Counseling Given: Not Answered Alcohol Use Standard Drinks/Week Comments Never 0 (1 standard drink = 0.6 oz pur e alcohol) AUDIT-C Answer Date Recorded Q1: How often do you have a drink containing alcohol? Never 05/11/2024 Q2: How many drinks containi ng alcohol do you have on a typical day when you are drinking? Patient does not drink Q3: How often do you have si x or more drinks on one occasion? Never 05/11/2024 Personal Safety Answer Date Recorded Have you ever been in or are you currently in a harmful physical or emotional relationship or is someone making you feel afraid or unsafe? Denies 05/11/2024 Comments No Sex and Gender Information Value Date Recorded Sex Assigned at Not on file Legal Sex Female 2:21 AM DISTRIBUTION LEAD Gender Identity Female 05/02/2020 6:34 AM DISTRIBUTION LEAD Sexual Orientation Not on file Occupation Industry Job Start Date Job End Date disability Not on file Not on file Not on file Last Filed Vital Signs Vital Sign Reading Time Taken Comments Blood Pressure 119/86 05/11/2024 10:00 AM CDT Pulse 65 05/11/2024 10:00 AM CDT Temperature 36.3 C (97.3 F) 05/11/2024 9:40 AM CDT Respiratory Rate 11 05/11/2024 10:00 AM CDT Oxygen Saturation 99% 05/11/2024 10:00 AM CDT Inhaled Oxygen Concentration - - Weight 111.1 kg (245 lb) 05/11/2024 7:14 AM CDT Height 170.2 cm (5' 7 ) 05/11/2024 7:14 AM CDT Body Mass Index 38.37 05/11/2024 7:14 AM CDT Plan of Treatment Not on file Medical Devices Implanted Type Area Butadiene Compressor Operator Device Identifier Shelf Expiration Date Model / Serial / Lot [employer] Biological Bariatric Peristrip Non Crosslinked Bovine Pericardium For Endo Brielle Thin [id number] - [id number] Implanted:Qty: 1 on 11/21/2021 by Bg Ye MD at [facility] [employer]EZ[employer] 09/15/2022 [id number] / / [id number] [employer] Gloria Biological Bariatric Peristrip Non Crosslinked Bovine Pericardium For Endo Brielle Thin [id number] - [id number] Implanted:Qty: 1 on 11/21/2021 by Bg Ye MD at [facility] [employer]EZ[employer] 2022 [id number] / / [id number] [employer] Gloria Biological Bariatric Peristrip Non Crosslinked Bovine Pericardium For Endo Brielle Thin [id number] - [id number] Implanted:Qty: 1 on 11/21/2021 by Bg Ye MD at [facility] [employer] 09/15/2022 [id number] / / [id number] [employer] Gloria Biological Bariatric Peristrip Non Crosslinked Bovine Pericardium For Endo Brielle Thin [id number] - [id number] Implanted:Qty: 1 on 11/21/2021 by Bg Ye MD at [facility] [employer] Gloria 09/15/2022 [id number] / / [id number] [employer] Gloria Biological Bariatric Peristrip Non Crosslinked Bovine Pericardium For Endo Brielle Thin [id number] - [id number] Implanted:Qty: 1 on 11/21/2021 by Bg Ye MD at [facility] [employer] 2022 [id number] / / [id number] [employer] Gloria Biological Bariatric Peristrip Non Crosslinked Bovine Pericardium For Endo Brielle Thin [id number] - [id number] Implanted:Qty: 1 on 11/21/2021 by Bg Ye MD at [facility] [employer] 09/15/2022 [id number] / / [id number] Procedures Procedure Name Priority Date/Time Associated Diagnosis Comments COLONOSCOPY 05/11/2024 8:00 AM CDT US BREAST LEFT LIMITED Schedule Routine, Read Routine (OP Routine) 02/11/2024 3:05 PM DISTRIBUTION LEAD Mass of left breast, unspecified quadrant DIAGNOSTIC MAMMOGRAM BILATERAL W BUZZ Schedule Routine, Read Routine (OP Routine) 02/11/2024 2:43 PM DISTRIBUTION LEAD Mass of left breast, unspecified quadrant Fibrocystic breast changes, unspecified laterality from Last 3 Months Results * Colonoscopy (05/11/2024 8:00 AM CDT) Anatomical Region Laterality Modality Other Narrative Procedure Note John Malhotra MD PhD - 05/11/2024 8:00 AM CDT ENDOSCOPY LAB Patient Name: Larisa Black Procedure Date: 05/11/2024 8:00 AM Date of : 1965 Admit Type: Outpatient Age: 58 Gender: Female Attending MD: John Malhotra M.D. Room: [facility] ENDOSCOPY ROOM 03 Note Status: Finalized Procedure: Colonoscopy Indications: Screening for colorectal malignant neoplasm, Thisis the patient's first colonoscopy Providers: John Malhotra M.D. Referring MD: Medicines: Monitored Anesthesia Care Complications: No immediate complications. Estimated Blood Loss: Estimated blood loss: none. Procedure: Pre-Anesthesia Assessment: - Immediately prior to administration ofmedications, the patient was re-assessed for adequacy to receive sedatives. The benefits, risks and alternatives of theprocedure and sedation were discussed and informed consentwas obtained. All questions were answered. Please referto the signed informed consent document in the medical record. The scope was passed under direct vision.The [id number] was introduced through the anusand advanced to the cecum, identified by appendiceal orifice and ileocecal valve. The colonoscopy was performed without difficulty. The patient tolerated the procedure well. The quality of the bowel preparation was adequate. The quality of the bowel preparation was evaluated using the BBPS (BostonBowel Preparation Scale) with scores of: Right Colon = 3, Transverse Colon = 3 and Left Colon = 3 (entiremucosa seen well with no residual staining, smallfragments of stool or opaque liquid). The total BBPS score equals 9. The bowel preparation used was Clenpiqand magnesium citrate. Findings: The perianal and digital rectal examinations were normal. Two sessile, non-bleeding polyps were found in the descending colon.The polyps were 1 to 4 mm in size. These polyps were removed with a cold snare. Resection and retrieval were complete. Estimated blood loss:none. Internal hemorrhoids were found during retroflexion. The exam was otherwise without abnormality on direct and retroflexion views. Impression: - Two 1 to 4 mm, non-bleeding polyps in thedescending colon, removed with a cold snare. Resected and retrieved. - Internal hemorrhoids. - The examination was otherwise normal on directand retroflexion views. Recommendation: - Discharge patient to home. - [facility] Electronically signed by John Malhotra MD John Malhotra M.D. 05/11/2024 9:53:22 AM Number of Addenda: 0 Note Initiated On: 05/11/2024 8:00 AM John Malhotra MD PhD ENDOSCOPY PROCEDURES Final Result * US Breast Left Limited (02/11/2024 3:05 PM DISTRIBUTION LEAD) Anatomical Region Laterality Modality Breast Left Ultrasound 02/11/2024 3:37 PM DISTRIBUTION LEAD Addenda Addendum by Barbara Kaiser MD on 04/14/2024 3:49 PM DISTRIBUTION LEAD EXAMINATION: Bilateral DIGITAL DIAGNOSTIC MAMMOGRAM AND DIGITAL BREAST TOMOSYNTHESIS; LEFT BREAST SONOGRAM HISTORY: 58-year-old female with history of left breast trauma presenting with palpable left breast lump. COMPARISON: Prior mammograms back to 2012. TECHNIQUE: Full field digital mammographic views of both breasts were performed, including computer aided detection (CAD) and digital breast tomosynthesis (DBT). Directed ultrasound evaluation of the LEFT breast was performed. MAMMOGRAM FINDINGS: Corresponding to the palpable area of concern in the anterior lower middle portion of the LEFT breast, there is a round 1.7 cm fat-density lucent mass with rim calcifications. There is no evidence of malignancy in the right breast. There is no change from prior exams. OVERALL FINAL ASSESSMENT: BI-RADS Category 2: Benign. Electronically signed by: Barbara Kaiser M.D. Impressions 02/11/2024 3:58 PM DISTRIBUTION LEAD At the palpable area of concern, there is a 1.7 cm oil cyst/evolving fat necrosis, compatible with history of trauma to the LEFT breast. OVERALL FINAL ASSESSMENT: BI-RADS Category 2: Benign. RECOMMENDATION: 1. Annual screening mammography is recommended. 2. Clinical follow-up is recommended. Dictated by: Vasile Umana M.D. The radiology attending physician has personally reviewed this study, and had reviewed and/or edited this written report and agrees with it. Electronically signed by: Barbara Kaiser M.D. Narrative 02/11/2024 3:58 PM DISTRIBUTION LEAD EXAMINATION: LEFT UNILATERAL DIGITAL DIAGNOSTIC MAMMOGRAM AND DIGITAL BREAST TOMOSYNTHESIS; LEFT BREAST SONOGRAM HISTORY: 58-year-old female with history of left breast trauma presenting with palpable left breast lump. COMPARISON: Screening mammogram 06/18/2017. TECHNIQUE: Full field digital mammographic views of the LEFT breast were performed, including computer aided detection (CAD) and digital breast tomosynthesis (DBT). Directed ultrasound evaluation of the LEFT breast was performed. BREAST PARENCHYMAL COMPOSITION: There are scattered areas of fibroglandular density. MAMMOGRAM FINDINGS: Corresponding to the palpable area of concern in the anterior lower middle portion of the LEFT breast, there is a round 1.7 cm low-density mass with rim calcifications. SONOGRAM FINDINGS: Area of palpable concern, 7:00 4 cm from the nipple, there is a circumscribed 1.6 x 1.7 x 1.4 cm anechoic mass with posterior acoustic shadowing. No internal vascularity is present. Procedure Note Barbara Kaiser MD - 02/11/2024 EXAMINATION: LEFT UNILATERAL DIGITAL DIAGNOSTIC MAMMOGRAM AND DIGITAL BREAST TOMOSYNTHESIS; LEFT BREAST SONOGRAM HISTORY: 58-year-old female with history of left breast trauma presenting with palpable left breast lump. COMPARISON: Screening mammogram 06/18/2017. TECHNIQUE: Full field digital mammographic views of the LEFT breast were performed, including computer aided detection (CAD) and digital breast tomosynthesis (DBT). Directed ultrasound evaluation of the LEFT breast was performed. BREAST PARENCHYMAL COMPOSITION: There are scattered areas of fibroglandular density. MAMMOGRAM FINDINGS: Corresponding to the palpable area of concern in the anterior lower middle portion of the LEFT breast, there is a round 1.7 cm low-density mass with rim calcifications. SONOGRAM FINDINGS: Area of palpable concern, 7:00 4 cm from the nipple, there is a circumscribed 1.6 x 1.7 x 1.4 cm anechoic mass with posterior acoustic shadowing. No internal vascularity is present. IMPRESSION: At the palpable area of concern, there is a 1.7 cm oil cyst/evolving fat necrosis, compatible with history of trauma to the LEFT breast. OVERALL FINAL ASSESSMENT: BI-RADS Category 2: Benign. RECOMMENDATION: 1. Annual screening mammography is recommended. 2. Clinical follow-up is recommended. Dictated by: Vasile Umana M.D. The radiology attending physician has personally reviewed this study, and had reviewed and/or edited this written report and agrees with it. Electronically signed by: Barbara Kaiser M.D. Edita Portillo [facility] IMG MAMMO PROCEDURES Edited Result - Final * Diagnostic Mammogram Bilateral W Buzz (02/11/2024 2:43 PM DISTRIBUTION LEAD) Anatomical Region Laterality Modality Breast Bilateral Mammography 02/11/2024 3:37 PM DISTRIBUTION LEAD Addenda Addendum by Barbara Kaiser MD on 04/14/2024 3:49 PM DISTRIBUTION LEAD EXAMINATION: Bilateral DIGITAL DIAGNOSTIC MAMMOGRAM AND DIGITAL BREAST TOMOSYNTHESIS; LEFT BREAST SONOGRAM HISTORY: 58-year-old female with history of left breast trauma presenting with palpable left breast lump. COMPARISON: Prior mammograms back to 2012. TECHNIQUE: Full field digital mammographic views of both breasts were performed, including computer aided detection (CAD) and digital breast tomosynthesis (DBT). Directed ultrasound evaluation of the LEFT breast was performed. MAMMOGRAM FINDINGS: Corresponding to the palpable area of concern in the anterior lower middle portion of the LEFT breast, there is a round 1.7 cm fat-density lucent mass with rim calcifications. There is no evidence of malignancy in the right breast. There is no change from prior exams. OVERALL FINAL ASSESSMENT: BI-RADS Category 2: Benign. Electronically signed by: Barbara Kaiser M.D. Impressions 02/11/2024 3:58 PM DISTRIBUTION LEAD At the palpable area of concern, there is a 1.7 cm oil cyst/evolving fat necrosis, compatible with history of trauma to the LEFT breast. OVERALL FINAL ASSESSMENT: BI-RADS Category 2: Benign. RECOMMENDATION: 1. Annual screening mammography is recommended. 2. Clinical follow-up is recommended. Dictated by: Vasile Umana M.D. The radiology attending physician has personally reviewed this study, and had reviewed and/or edited this written report and agrees with it. Electronically signed by: Barbara Kaiser M.D. Narrative 02/11/2024 3:58 PM DISTRIBUTION LEAD EXAMINATION: LEFT UNILATERAL DIGITAL DIAGNOSTIC MAMMOGRAM AND DIGITAL BREAST TOMOSYNTHESIS; LEFT BREAST SONOGRAM HISTORY: 58-year-old female with history of left breast trauma presenting with palpable left breast lump. COMPARISON: Screening mammogram 06/18/2017. TECHNIQUE: Full field digital mammographic views of the LEFT breast were performed, including computer aided detection (CAD) and digital breast tomosynthesis (DBT). Directed ultrasound evaluation of the LEFT breast was performed. BREAST PARENCHYMAL COMPOSITION: There are scattered areas of fibroglandular density. MAMMOGRAM FINDINGS: Corresponding to the palpable area of concern in the anterior lower middle portion of the LEFT breast, there is a round 1.7 cm low-density mass with rim calcifications. SONOGRAM FINDINGS: Area of palpable concern, 7:00 4 cm from the nipple, there is a circumscribed 1.6 x 1.7 x 1.4 cm anechoic mass with posterior acoustic shadowing. No internal vascularity is present. Procedure Note Barbara Kaiser MD - 02/11/2024 EXAMINATION: LEFT UNILATERAL DIGITAL DIAGNOSTIC MAMMOGRAM AND DIGITAL BREAST TOMOSYNTHESIS; LEFT BREAST SONOGRAM HISTORY: 58-year-old female with history of left breast trauma presenting with palpable left breast lump. COMPARISON: Screening mammogram 06/18/2017. TECHNIQUE: Full field digital mammographic views of the LEFT breast were performed, including computer aided detection (CAD) and digital breast tomosynthesis (DBT). Directed ultrasound evaluation of the LEFT breast was performed. BREAST PARENCHYMAL COMPOSITION: There are scattered areas of fibroglandular density. MAMMOGRAM FINDINGS: Corresponding to the palpable area of concern in the anterior lower middle portion of the LEFT breast, there is a round 1.7 cm low-density mass with rim calcifications. SONOGRAM FINDINGS: Area of palpable concern, 7:00 4 cm from the nipple, there is a circumscribed 1.6 x 1.7 x 1.4 cm anechoic mass with posterior acoustic shadowing. No internal vascularity is present. IMPRESSION: At the palpable area of concern, there is a 1.7 cm oil cyst/evolving fat necrosis, compatible with history of trauma to the LEFT breast. OVERALL FINAL ASSESSMENT: BI-RADS Category 2: Benign. RECOMMENDATION: 1. Annual screening mammography is recommended. 2. Clinical follow-up is recommended. Dictated by: Vasile Umana M.D. The radiology attending physician has personally reviewed this study, and had reviewed and/or edited this written report and agrees with it. Electronically signed by: Barbara Kaiser M.D. Edita Portillo NP IMG MAMMO PROCEDURES Edited Result - Final from Last 3 Months Insurance [facility] Address: [id number] [place] [address] [facility] Address: [id number] [place] [address] [facility] Advance Directives For more information, please contact: [phone] * Full Code (Latest Code Status on File) Date Activated Date Inactivated Comments 05/11/2024 7:19 AM 05/11/2024 2:49 PM * Full Code Date Activated Date Inactivated Comments 11/21/2021 3:46 PM 11/23/2021 8:36 PM * Full Code Date Activated Date Inactivated Comments 04/24/2019 1:19 PM 04/25/2019 5:10 PM Care Teams Senior Java Programmer Analyst Relationship Specialty Start Date End Date Edita Portillo NP [address] [place] [id number] PCP - General Nurse Practitioner 03/08/22 Kristopher Cross MD Consulting Physician Otolaryngology 05/02/21
--- OUTSIDE RECORDS SUMMARY | 2024-05-11 19:39 | XMS_ITS ---
Author Organization [facility] Address [address] [place] [address] Care Team Providers Care Parts Counterperson Name Role Phone Kristopher Cross MD Unavailable [phone] Edita Portillo NP Primary Care Provider [phone] Active Problems Problem Noted Date Diagnosed Date Encounter for screening colonoscopy 11/25/2023 Constipation 11/25/2023 Prediabetes 02/11/2023 Weight loss counseling, encounter for 01/04/2023 Metabolic and nutritional disorder 01/04/2023 Disordered eating 01/04/2023 Assessment & Plan (01/04/2023 5:30 PM CHARGEMASTER ANALYST): Sent QEWP to complete. Discussed/reviewed that CBT is the basis for successful treatment of disordered eating. Suggested providers including [facility] [place] or Birdie Ledezma LCSW. Drug-induced constipation 01/04/2023 Assessment & Plan (01/04/2023 5:40 PM CHARGEMASTER ANALYST): Recommended daily fiber supplement containing inulin or wheat dextrin. Discussed possible benefits w/r/t gut microbiome and weight. Miralax prn. Colon cancer screening 01/23/2022 Overview (01/23/2022): Added automatically from request for surgery [id number] Morbid (severe) obesity due to excess calories [...] Allergic rhinitis 11/29/2017 Fibrocystic breast changes 06/18/2011 Current Treatment and Therapy Plans No current plan information found. Past Treatment and Therapy Plans No past plan information found. Lifetime Dose Tracking * Chemical Lifetime Dose Automatic Entry Manual Entr y DLP 1,819 mGycm 1,819 mGycm 0 mGycm
--- OUTSIDE RECORDS SUMMARY | 2024-05-11 19:40 | XMS_ITS | Encounter Summary ---
Author Organization [facility] Address [address] [place] [address] Care Team Providers Care Lumber Scaler Name Role Phone Chucho Gallardo MD Unavailable [phone] Art Carroll MD Primary Care Provider Unavail able Edita Portillo APRN-[facility] Primary Care Provider [phone] Primitivo Wagner MD Primary Care Provider [phone] Encounter Details Date Type Department Care Team (Late st Contact Info) Description 10/27/2014 [facility] Outpatient Visit [facility] Medical [facility] - Pulmonology [id number] [place] [id number] [place] [id number] [address] Social History Tobacco Use Types Packs/Day Years Used Date Smoking Tobacco: Never Alcohol Use Standard Drinks/Week Comments [...] on filedocumented in this encounter Care Teams Lumber Scaler Relationship Specialty [place] [id number] [facility] [address] [place] [address] PCP - General Internal Medicine 08/08/15 11/13/18 Edita Portillo APRN-TELETYPE CLERK [address] [place] [address] PCP - General Nurse Practitioner 11/14/18 05/08/21 Primitivo Wagner MD [address] [place] [id number] PCP - General Internal Medicine 05/09/21 [place] [id number] [address] Pulmonary Disease 02/09/13 documented as of this encounter
--- OUTSIDE RECORDS SUMMARY | 2024-05-11 19:40 | XMS_ITS | Encounter Summary ---
Author Organization [facility] Healthcare Address [address] [place] [address] Care Team Providers Care Seam Finisher Name Role Phone Kristopher Cross MD Unavailable [phone] Edita Portillo NP Primary Care Provider [phone] Reason for Visit * Auth/Cert (Routine) Specialty Diagnoses / Procedures Referred By Contac t Referred To Contact Diagnoses Special screening for malignant neoplasms, colon Special screening for malignant neoplasms, colon [Z12.11] Procedures OR COLONOSCOPY FLX DX W/COLLJ SPEC WHEN PFRMD COLONOSCOPY Referral ID Status Reason Start Date Expiration Date Visits Re quested Visits Authorized [id number] 1 1 Encounter Details Date Type Department Care Team (Late st Contact Info) Description 05/11/2024 8:45 AM CDT - 05/11/2024 9:30 AM CDT Surgery [facility] Endoscopy [address] [place] [address] John Malhotra MD PhD [address] [place] [address] COLON REMOVAL SNARE Social History Tobacco Use Types Packs/Day Years Used Date Smoking Tobacco: Never Smokeless Tobacco: Never Alcohol Use Standard Drinks/Week Comments Never 0 [...] on file Legal Sex Female 2:21 AM ADJUNCT COMMUNICATIONS FACULTY MEMBER Gender Identity Female 05/02/2020 6:34 AM ADJUNCT COMMUNICATIONS FACULTY MEMBER Sexual Orientation Not on file Occupation Industry Job Start Date Job End Date disability Not on file Not on file Not on file documented as of this encounter Last Filed Vital Signs Vital Sign Reading Time Taken Comments Blood Pressure 105/65 05/11/2024 8:30 AM CDT Pulse 74 05/11/2024 8:45 AM CDT Temperature 36.6 C (97.9 F) 05/11/2024 7:14 AM CDT Respiratory Rate 29 05/11/2024 8:45 AM CDT Oxygen Saturation 94% 05/11/2024 8:45 AM CDT Inhaled Oxygen Concentration - - Weight 111.1 kg (245 lb) 05/11/2024 7:14 AM CDT Height 170.2 cm (5' 7 ) 05/11/2024 7:14 AM CDT Body Mass Index 38.37 05/11/2024 7:14 AM CDT documented in this encounter Functional Status * Audit-C Score Answer Date of Assessment Author 0 05/11/2024 7:23 AM CDT Ran Pavon RN * Question Answer Date of Assessment Author Q1: How often do you have a drink containing alcohol? Never 05/11/2024 7:23 AM DEONT Rosana Pavon RN Q2: How many drinks containing alcohol do you have on a typical day when you are drinking? Patient does not drink 05/11/2024 7:23 AM DEONT Rosana Pvaon RN Q3: How often do you have six or more drinks on one occasion? Never 05/11/2024 7:23 AM DEONT Rosana Pavon RN documented as of this encounter Discharge Instructions * Attachments The following attachments cannot be sent through Care Everywhere. * Colonoscopy (Discharge Care) (Dominican) documented in this encounter Medications at Time of Discharge acetaminophen/d-bro mpheniramin 500-1 mg tablet 2 tablets ( 1000mg ) every 6 hours oral albuterol (PROVENTIL,VENTOLIN ) 2 mg tablet every 6 hours puffs ALPRAZolam (NIRAVAM) 0.5 mg disintegrating tablet 3 times daily as needed oral ALPRAZolam (XANAX) 0.5 mg tablet Take 1 tablet (0.5 mg total) by mouth 3 (three) times a day as needed for sleep or anxiety 0 butalbital-acetamin ophen-caffeine (FIORICET) 50-300-40 mg per capsule TAKE 1 CAPSULE BY MOUTH EVERY 6 HOURS NEEDED FOR PAIN OR MIGRAINE 3 calcium carbonate-vitamin D3 1,250mg (500mg elemental) - 5 mcg (200 units) per tablet Take 1 tablet by mouth 3 (three) times a day 270 tablet 3 2 cetirizine (ZyrTEC) 10 mg tablet Take 1 tablet (10 mg total) by mouth nightly 6 cholecalciferol, vitamin D3, (Vitamin D3) 1,000 unit tablet,chewable 1 in morning oral citalopram (CeleXA) 40 mg tablet Take 1 tablet (40 mg total) by mouth every morning 1 citalopram (CeleXA) 40 mg tablet 1 nightly oral cyanocobalamin (Vitamin B-12) 500 mcg tabletIndications:P revention of Vitamin B12 Deficiency Take 1 tablet (500 mcg total) by mouth daily 30 tablet 2 docusate sodium (COLACE) 100 mg capsuleIndications: constipation,stool softener Take 1 capsule (100 mg total) by mouth 2 (two) times a day 60 capsule 2 2 DULoxetine 40 mg capsule,delayed release(DR/EC) Take 1 tablet by mouth daily [address] (CYMBALTA) 60 mg capsule Take by mouth daily 4 eszopiclone (LUNESTA) 2 mg tablet Take 1 tablet (2 mg total) by mouth daily 4 fluconazole (DIFLUCAN) 150 mg tablet Take one tablet now and you may repeat one tablet 72 hours for continued symptoms 4 fluticasone (VERAMYST) 27.5 mcg/actuation nasal spray 2 sprays each nostril as needed spray fluticasone propionate (FLONASE) 50 mcg/actuation nasal spray Administer 2 sprays into each nostril as needed 6 hydroCHLOROthiazide (HYDRODIURIL) 25 mg tablet 2 levothyroxine (SYNTHROID) 137 mcg tablet 4 levothyroxine (SYNTHROID) 150 mcg tablet Take 1 tablet (150 mcg total) by mouth daily 90 tablet 3 3 levothyroxine 200 mcg/mL solution 1 daily oral lisinopril-hydroCHL OROthiazide (ZESTORETIC) 20-25 mg per tablet 1 nightly oral metFORMIN (GLUCOPHAGE) 500 mg tablet Take 1 tablet (500 mg total) by mouth daily with breakfast for 7 days, THEN 1 tablet (500 mg total) 2 (two) times a day with meals. 60 tablet 1 3 methocarbamoL (ROBAXIN) 750 mg tablet take 1 tablet (750 mg) by oral route 3 times per day Oral 3 Mucus D 120-1,200 mg tablet extended release 12 hr Take by mouth every 12 (twelve) hours as needed 3 multivit sgvmnzxc-csdl-TC-ca lcium (THERA-M) 9 mg iron-400 mcg tabletIndications:V itamin Deficiency Prevention Take 1 tablet by mouth 2 (two) times a day 60 tablet 2 naltrexone-bupropio n 8-90 mg tablet extended releaseIndications: BMI 36.0-36.9,adult,Jose ght gain Take 1 tablet every AM for 1 week; then 1 tab. twice daily for 1 week; then 2 tabs AM, 1 tab PM for 1 week; then 2 tablets twice daily. 120 tablet 1 3 ondansetron (ZOFRAN) 4 mg tablet Take 1 tablet (4 mg total) by mouth 3 (three) times a day as needed for nausea or vomiting [address] (PROTONIX) 40 mg EC tablet TAKE 1 TABLET BY MOUTH TWICE A DAY 180 tablet 3 4 polymyxin B-trimethoprim (POLYTRIM) ophthalmic solution 08/08/19 2 4 ProAir RespiClick 90 mcg/actuation inhaler INHALE 2 PUFFS INTO THE LUNGS EVERY 4 (FOUR) HOURS NEEDED (COUGH, WHEEZING). 3 sod picosulf-mag ox-citric ac (Clenpiq) 10 mg-3.5 gram- 12 gram/175 mL solution 05/10/2024 at 6:00 PM Drink 1 bottle (5.4oz) of prep solution followed by 5 cups or more of clear liquids. 05/11/2024 at 3:45 AM drink the second 5.4 oz bottle of prep solution followed by 4 cups or more of clear liquids. 350 mL 5 sod picosulf-mag ox-citric ac 10 mg-3.5 gram- 12 gram/175 mL solutionIndications :Preoperative Bowel Preparation 03/12/24 @6:00 PM Drink 1 bottle (5.4oz) followed by 5 cups or more of clear liquids. Drink the second bottle on 03/13/24 @4:30 AM followed by 4 cups or more of clear liquids. Please refer to additional instructions per GI Call Center nurse. 350 mL 4 sodium, potassium & mag sulfates (SUPREP BOWEL KIT) 17.5-3.13-1.6 gram recon solnIndications:[place] Evacuation Take 354 mL by mouth as directed Take 1st 1/2 at 6 pm evening prior to procedure. Take 2nd 1/2 6 hours prior to arrival (1 am). 354 mL 2 traMADoL (ULTRAM) 50 mg tablet take 1 tablet (50 mg) by oral route every 6 hours as needed Oral 4 documented as of this encounter Discharge Disposition Disposition Code Departure Means Destination Comment s Discharge to home or self care Private Vehicle documented in this encounter H&P Notes * John Malhotra MD PhD - 05/11/2024 7:51 AM CDT Pre Endoscopy History and Physical Larisa Black is a 58 y.o. female who is here for Procedure(s): COLONOSCOPY The indication(s) for the procedure(s): Screening for colon cancer. Past Medical History: Diagnosis Date Anxiety Asthma Cholelithiasis Depression Hypertension Hypothyroidism Morbid obesity (HCC) Polyarthralgia Sleep apnea Thyroid cancer (HCC) Past Surgical History: Procedure Laterality Date APPENDECTOMY BIOPSY 03/30/2019 FNA isthmus thyroid nodule BREAST BIOPSY Right x2 CHOLECYSTECTOMY 1985 ESOPHAGOGASTRODUODENOSCOPY SLEEVE GASTROPLASTY 2021 THYROIDECTOMY Social History Tobacco Use Smoking status: Never Smokeless tobacco: Never Substance and Sexual Activity Drug use: Not Currently Sexual activity: Yes Partners: Male control/protection: Post-menopausal Alcohol Use: Not At Risk (05/11/2024) AUDIT-C Frequency of Alcohol Consumption: Never Average Number of Drinks: Patient does not drink Frequency of Binge Drinking: Never Family History Problem Relation Age of Onset Cancer Mother Depression Mother Other (overweight) Mother Diabetes Mother Hypertension Father Allergies Allergen Reactions Nabumetone Shortness of breath and Wheezing Prior to Admission medications Medication Sig Start Date End Date Taking? Authorizing Provider acetaminophen/d-brompheniramin 500-1 mg tablet 2 tablets ( 1000mg ) every 6 hours oral Yes Johnnie Lopez MD ALPRAZolam (XANAX) 0.5 mg tablet Take 1 tablet (0.5 mg total) by mouth 3 (three) times a day as needed for sleep or anxiety 04/03/19 Yes Johnnie Lopez MD vlpvcumazv-foinfbysjufvd-rlcovfwu (FIORICET) 50-300-40 mg per capsule TAKE 1 CAPSULE BY MOUTH EVERY6 HOURS NEEDED FOR PAIN OR MIGRAINE 10/03/22 Yes Johnnie Lopez MD cetirizine (ZyrTEC) 10 mg tablet Take 1 tablet (10 mg total) by mouth nightly 07/13/15 Yes Johnnie Lopez MD cholecalciferol, vitamin D3, (Vitamin D3) 1,000 unit tablet,chewable 1 in morning oral Yes Johnnie Lopez MD citalopram (CeleXA) 40 mg tablet Take 1 tablet (40 mg total) by mouth every morning 05/10/20 Yes Johnnie Lopez MD DULoxetine DR (CYMBALTA) 60 mg capsule Take by mouth daily 02/01/24 Yes Johnnie Lopez MD eszopiclone (LUNESTA) 2 mg tablet Take 1 tablet (2 mg total) by mouth daily 01/10/24 Yes Johnnie Lopez MD fluticasone (VERAMYST) 27.5 mcg/actuation nasal spray 2 sprays each nostril as needed spray Yes Johnnie Lopez MD fluticasone propionate (FLONASE) 50 mcg/actuation nasal spray Administer 2 sprays into each nostrilas needed 07/13/15 Yes Johnnie Lopez MD levothyroxine (SYNTHROID) 137 mcg tablet 02/10/24 Yes Johnnie Lopez MD lisinopril-hydroCHLOROthiazide (ZESTORETIC) 20-25 mg per tablet 1 nightly oral Yes Johnnie Lopez MD Mucus D 120-1,200 mg tablet extended release 12 hr Take by mouth every 12 (twelve) hours as needed 10/15/22 Yes Johnnie Lopez MD ondansetron (ZOFRAN) 4 mg tablet Take 1 tablet (4 mg total) by mouth 3 (three) times a day as needed for nausea or vomiting 05/08/24 Yes Kamila Miller MD sod picosulf-mag ox-citric ac (Clenpiq) 10 mg-3.5 gram- 12 gram/175 mL solution 05/10/2024 at 6:00 PM Drink 1 bottle (5.4oz) of prep solution followed by 5 cups or more of clear liquids. 05/11/2024 at 3:45 AM drink the second 5.4 oz bottle of prep solution followed by 4 cups or more of clear liquids.05/06/24 Yes John Malhotra MD PhD albuterol (PROVENTIL,VENTOLIN) 2 mg tablet every 6 hours puffs ProviderJohnnie MD ALPRAZolam (NIRAVAM) 0.5 mg disintegrating tablet 3 times daily as needed oral ProviderJohnnie MD calcium carbonate-vitamin D3 1,250mg (500mg elemental) - 5 mcg (200 units) per tablet Take 1 tabletby mouth 3 (three) times a day 01/23/22 01/23/23 Bg Ye MD citalopram (CeleXA) 40 mg tablet 1 nightly oral ProviderJohnnie MD cyanocobalamin (Vitamin B-12) 500 mcg tablet Take 1 tablet (500 mcg total) by mouth daily 11/23/21 06/19/22 Freedom Baldwin MD docusate sodium (COLACE) 100 mg capsule Take 1 capsule (100 mg total) by mouth 2 (two) times a day 12/25/21 06/19/22 Bg Ye MD DULoxetine 40 mg capsule,delayed release(DR/EC) Take 1 tablet by mouth daily 12/14/21 Johnnie Lopez MD fluconazole (DIFLUCAN) 150 mg tablet Take one tablet now and you may repeat one tablet 72 hours forcontinued symptoms 01/10/24 Johnnie Lopez MD hydroCHLOROthiazide (HYDRODIURIL) 25 mg tablet 02/09/22 Johnnie Lopez MD levothyroxine (SYNTHROID) 150 mcg tablet Take 1 tablet (150 mcg total) by mouth daily 09/08/22 09/08/23 Chaparro Campbell MD levothyroxine 200 mcg/mL solution 1 daily oral Johnnie Lopez MD metFORMIN (GLUCOPHAGE) 500 mg tablet Take 1 tablet (500 mg total) by mouth daily with breakfast for7 days, THEN 1 tablet (500 mg total) 2 (two) times a day with meals. 02/11/23 04/19/23 Humaira Dean NP methocarbamoL (ROBAXIN) 750 mg tablet take 1 tablet (750 mg) by oral route 3 times per day Oral 3 Johnnie Lopez MD multivit kjsqtuyh-xqiv-CQ-calcium (THERA-M) 9 mg iron-400 mcg tablet Take 1 tablet by mouth 2 (two)times a day 11/23/21 06/19/22 Freedom Baldwin MD naltrexone-bupropion 8-90 mg tablet extended release Take 1 tablet every AM for 1 week; then 1 tab.twice daily for 1 week; then 2 tabs AM, 1 tab PM for 1 week; then 2 tablets twice daily. 11/02/22 Jasmina Payan, CHIRAG pantoprazole DR (PROTONIX) 40 mg EC tablet TAKE 1 TABLET BY MOUTH TWICE A DAY 05/21/23 Bg Ye MD polymyxin B-trimethoprim (POLYTRIM) ophthalmic solution 08/08/23 Johnnie Lopez MD ProAir RespiClick 90 mcg/actuation inhaler INHALE 2 PUFFS INTO THE LUNGS EVERY 4 (FOUR) HOURS NEEDED (COUGH, WHEEZING). 09/24/22 Johnnie Lopez MD sod picosulf-mag ox-citric ac 10 mg-3.5 gram- 12 gram/175 mL solution 03/12/24 @6:00 PM Drink 1 bottle (5.4oz) followed by 5 cups or more of clear liquids. Drink the second bottle on 03/13/24 @4:30 AM followed by 4 cups or more of clear liquids. Please refer to additional instructions per GI Call Center nurse. 01/30/24 Lashanda Howard MD sodium, potassium & mag sulfates (SUPREP BOWEL KIT) 17.5-3.13-1.6 gram recon soln Take 354 mL by mouth as directed Take 1st 1/2 at 6 pm evening prior to procedure. Take 2nd 1/2 6 hours prior to arrival (1 am). 01/23/22 Rocky Carlson MD traMADoL (ULTRAM) 50 mg tablet take 1 tablet (50 mg) by oral route every 6 hours as needed Oral 4 Provider, MD Johnnie Review of Systems A pertinent, focused review of systems was completed and negative, except as noted above. OBJECTIVE: Vitals: Vitals: 05/11/24 0714 05/11/24 0720 BP: 118/70 Pulse: 83 Resp: 18 Temp: 36.6 ??C (97.9 ??F) TempSrc: Temporal SpO2: 96% Weight: 111.1 kg (245 lb) Height: 170.2 cm (5' 7 ) Physical Exam: Airway: No significant abnormality. Cardiac: No significant abnormality. Pulmonary: No significant abnormality. Neurological: No significant abnormality. Gastrointestinal: No significant abnormality. ASA Score: per Anesthesia Sedation/Anesthesia Plan: per Anesthesia The risks and complications of the procedure have been explained to the patient. Informed consent was signed. Impression and plan: Will proceed with the planned procedure for the reasons stated above. documented in this encounter Procedure Notes * John Malhotra MD PhD - 05/11/2024 8:00 AM CDTAssociated Order(s): COLONOSCOPY ENDOSCOPY LAB Patient Name: Larisa Black Procedure Date: 05/11/2024 8:00 AM Date of : 1965 Admit Type: Outpatient Age: 58 Gender: Female Attending MD: John Malhotra M.D. Room: [facility] ENDOSCOPY ROOM 03 Note Status: Finalized Procedure: Colonoscopy Indications: Screening for colorectal malignant neoplasm, This is the patient's first colonoscopy Providers: John Malhotra M.D. Referring MD: Medicines: Monitored Anesthesia Care Complications: No immediate complications. Estimated Blood Loss: Estimated blood loss: none. Procedure: Pre-Anesthesia Assessment: - Immediately prior to administration of medications, the patient was re-assessed for adequacy to receive sedatives. The benefits, risks and alternatives of the procedure and sedation were discussed and informed consent was obtained. All questions were answered. Please refer to the signed informed consent document in the medical record. The scope was passed under direct vision. The [id number] was introduced through the anus and advanced to the cecum, identified by appendiceal orifice and ileocecal valve. The colonoscopy was performed without difficulty. The patient tolerated the procedure well. The quality of the bowel preparation was adequate. The quality of the bowel preparation was evaluated using the BBPS ([place] Bowel Preparation Scale) with scores of: Right Colon = 3, Transverse Colon = 3 and Left Colon = 3 (entire mucosa seen well with no residual staining, small fragments of stool or opaque liquid). The total BBPS score equals 9. The bowel preparation used was Clenpiq and magnesium citrate. Findings: The perianal and digital rectal examinations were normal. Two sessile, non-bleeding polyps were found in the descending colon. The polyps were 1 to 4 mm in size. These polyps were removed with a cold snare. Resection and retrieval were complete. Estimated blood loss: none. Internal hemorrhoids were found during retroflexion. The exam was otherwise without abnormality on direct and retroflexion views. Impression: - Two 1 to 4 mm, non-bleeding polyps in the descending colon, removed with a cold snare. Resected and retrieved. - Internal hemorrhoids. - The examination was otherwise normal on direct and retroflexion views. Recommendation: - Discharge patient to home. - Repeat colonoscopy in 7-10 years for surveillance. Electronically signed by John Malhotra MD John Malhotra M.D. 05/11/2024 9:53:22 AM Number of Addenda: 0 Note Initiated On: 05/11/2024 8:00 AM documented in this encounter Miscellaneous Notes * Perioperative Nursing Note - Hafsa Bender RN - 05/11/2024 10:40 AM CDT Physician spoke with patient about findings of procedure and recommendations. Nurse reviewed findings and recommendations. Discharge instructions reviewed. Patient agreeable. * Pre-Procedure Instructions - Lynn Jesus RN - 04/30/2024 3:05 PM ADJUNCT COMMUNICATIONS FACULTY MEMBER You have an appointment for colonoscopy [facility] 05/11/24. Arrival time 7:45 am for 8:45 am procedure Our address is: [id number] [place] [address] [place] [address] Malhotra's office instruction regarding your colonoscopy bowel prep Bring current medication list for review. Leave valuables at home-mills, credit cards, jewelry Due to the anesthesia you will not be able to drive. Please have a ride arranged to and from hospital with a responsible adult. No form of public transportation by yourself will be allowed:Hannah, Alberto Bailey When you arrive come in through hospital main entrance and check in at the information desk For questions or if you cannot make this appointment and wish to reschedule please call the gastroenterology office [phone] Thank you NCT COMMUNICATIONS FACULTY MEMBER documented in this encounter Plan of Treatment Pending Results Name Type Priority Associated Diagnoses Date /Time Surgical pathology Pathology and Cytology Routine Special screening for malignant neoplasms, colon 05/11/2024 9:25 AM CDT Scheduled Orders Name Type Priority Associated Diagnoses Order Schedule Surgical pathology Pathology and Cytology Routine Special screening for malignant neoplasms, colon Release Upon Ordering for 1 Occurrences starting 05/11/2024 documented as of this encounter Procedures Procedure Name Priority Date/Time Associated Diagnosis Comments COLONOSCOPY 05/11/2024 8:00 AM CDT documented in this encounter Results * Colonoscopy (05/11/2024 8:00 AM CDT) Anatomical Region Laterality Modality Other Narrative Procedure Note John Malhotra MD PhD - 05/11/2024 8:00 AM CDT ENDOSCOPY LAB Patient Name: Larisa Black Procedure Date: 05/11/2024 8:00 AM Date of : 1965 Admit Type: Outpatient Age: 58 Gender: Female Attending MD: John Mlahotra M.D. Room: [facility] ENDOSCOPY ROOM 03 Note Status: Finalized [...] The scope was passed under direct vision.The [id number] was introduced through the anusand advanced to [...] home. - [facility] Electronically signed by John Malhotra MD John Malhotra M.D. 05/11/2024 9:53:22 AM Number of Addenda: 0 Note Initiated On: 05/11/2024 8:00 AM John Malhotra MD PhD ENDOSCOPY PROCEDURES Final Result documented in this encounter Visit Diagnoses Diagnosis Special screening for malignant neoplasms, colon Special screening for malignant neoplasms, colon documented in this encounter Administered Medications Inactive Administered Medications - up to 3 most recent administrations Medication Order MAR Action Action Date Dose Rate Site famotidine (PEPCID) injection 20 mg 20 mg, intravenous, Administer over 2 Minutes, Once, On Sat05/11/24 at 0800, For 1 dose, Pre-Op, Indications: RefluxIndications:Reflux Given 05/11/2024 7:29 AM CDT 20 mg ondansetron (ZOFRAN) injection 4 mg 4 mg, intravenous, Administer over 2 Minutes, Once, On Sat05/11/24 at 0800, For 1 dose, Pre-Op, At closure , Indications: Prevention of Post-Operative Nausea and VomitingIndications:Prevention of Post-Operative Nausea and Vomiting Given 05/11/2024 7:29 AM CDT 4 mg ondansetron (ZOFRAN) injection 4 mg 4 mg, intravenous, Administer over 2 Minutes, Every 6 hours PRN, nausea, vomiting, Starting on Sat05/11/24 at 0719, Pre-Procedure (GI) simethicone (MYLICON) 66.7 mg/mL oral drops As needed, Starting on Sat05/11/24 at 0900, Intra-Op Given 05/11/2024 9:00 AM CDT 40 mg GI Tract sodium chloride 0.9% flush 0.5-20 mL 0.5-20 mL, intra-catheter, As needed, line care, Starting on Sat05/11/24 at 0719, Pre-Procedure (GI), Flush volume based on line type and size. Flush before and after each use. , Indications: FlushingIndications:Flushing sodium chloride 0.9% infusion 125 mL/hr, intravenous, Continuous, Starting on Sat05/11/24 at 0800, Pre-Op, Indications: sigmoidoscopy/colonoscopy patientsIndications:sigmoidosco py/colonoscopy patients Restarted 05/11/2024 9:12 AM CDT Rate/Dose Verify 05/11/2024 8:45 AM CDT 125 mL/ hr New Bag 05/11/2024 7:29 AM CDT 125 mL/hr 125 mL/hr sodium chloride 0.9% infusion 30 mL/hr, intravenous, Continuous, Starting on Sat05/11/24 at 0800, Pre- Procedure (GI) documented in this encounter Active and Recently Administered Medications Times are shown in CDT. Scheduled Medication Order 05/09/2024 05/10/2024 05/11/2024 famotidine (PEPCID) injection 20 mg (COMPLETED) 20 mg, intravenous, Administer over 2 Minutes, Once, On Sat05/11/24 at 0800, For 1 dose, Pre-Op, Indications: Reflux 0729 (Given - Provid er: Rosana Pavon RN) ondansetron (ZOFRAN) injection 4 mg (COMPLETED) 4 mg, intravenous, Administer over 2 Minutes, Once, On Sat05/11/24 at 0800, For 1 dose, Pre-Op, At closure , Indications: Prevention of Post-Operative Nausea and Vomiting 0729 (Given - Provid er: Rosana Pavon RN) Continuous Medication Order 05/09/2024 05/10/2024 05/11/2024 sodium chloride 0.9% infusion 125 mL/hr, intravenous, Continuous, Starting on Sat05/11/24 at 0800, Pre-Op, Indications: sigmoidoscopy/colonoscopy patients 0729 (New Bag - Prov ider: Rosana Pavon RN)0800 (Due)0845 (Rate/Dose Verify - Provider: Laura Reyna CRNA)0911 (Paused - Provider: Laura Reyna CRNA - Comment: Switch to gravity)0912 (Restarted - Provider: Laura Reyna CRNA)0930 (Anesthesia Volume Adjustment - Provider: Laura Reyna CRNA)1449 (Due: Stopped) sodium chloride 0.9% infusion 30 mL/hr, intravenous, Continuous, Starting on Sat05/11/24 at 0800, Pre-Procedure (GI) 0800 (Due) PRN Medication Order 05/09/2024 05/10/2024 05/11/2024 ondansetron (ZOFRAN) injection 4 mg 4 mg, intravenous, Administer over 2 Minutes, Every 6 hours PRN, nausea, vomiting, Starting on Sat05/11/24 at 0719, Pre-Procedure (GI) simethicone (MYLICON) 66.7 mg/mL oral drops (CANCELED) As needed, Starting on Sat05/11/24 at 0900, Intra-Op 0900 (Given - Provid er: John Malhotra MD PhD) sodium chloride 0.9% flush 0.5-20 mL 0.5-20 mL, intra-catheter, As needed, line care, Starting on Sat05/11/24 at 0719, Pre-Procedure (GI), Flush volume based on line type and size. Flush before and after each use. , Indications: Flushing documented in this encounter Orders Medications Ordered That Gabriel ht Not Have Been Administered Count Last Ordered Date First Ordered Date ondansetron (ZOFRAN) injection 4 mg 1 05/11 sodium chloride 0.9% flush 0.5-20 mL 1 04/25 sodium chloride 0.9% infusion 1 05/11/2024 documented in this encounter Care Teams Seam Finisher Relationship Specialty Start Date End Date Edita Portillo NP [address] [place] [id number] PCP - General Nurse Practitioner 03/08/22 Kristopher Cross MD Consulting Physician Otolaryngology 05/02/21 documented as of this encounter
--- OUTSIDE RECORDS SUMMARY | 2024-05-11 19:40 | XMS_ITS | Encounter Summary ---
Author Organization [facility] Address [address] [place] [address] Care Team Providers Care Slip Cover Maker Name Role Phone Kristopher Cross MD Unavailable [phone] Edita Portillo NP Primary Care Provider [phone] Reason for Visit * Auth/Cert (Routine) Specialty Diagnoses / Procedures Referred By Contac t Referred To Contact Diagnoses Special screening for malignant neoplasms, colon Special screening for malignant neoplasms, colon [Z12.11] Procedures AR COLONOSCOPY FLX DX W/COLLJ SPEC WHEN PFRMD COLONOSCOPY Referral ID Status Reason Start Date Expiration Date Visits Re quested Visits Authorized [id number] 1 1 Encounter Details Date Type Department Care Team (Late st Contact Info) Description 05/11/2024 8:45 AM CDT Anesthesia Event [facility] Endoscopy [id number] [place] [address] Travon Laboy MD [address] [facility] [address] [place] [address] Anesthesia Record Procedure Summary Procedure Name Responsible Anesthesiologist Anesthesia Start Time Anesthesia Stop Time COLON REMOVAL SNARE (Colon) Travon Laboy MD 05/11/24 0845 05/11/24 0939 Events Date Time Event Comment 05/11/2024 0742 0817 AN Equip Check 0845 An Start 0845 An Start Data 0845 Start Supplemental O2 0845 In Room 0846 Patient Positioned Laterally 0848 An Induction The patient was reevaluated immediately before moderate or deep sedation use and before anesthesia induction. 0849 Anesthesia Ready 0850 Proc Start 0934 Proc Fin 0935 an stop data 0936 Out of Room 0939 Handoff to RN I completed my handoff to the receiving nurse during which we: 1. Patient identified 2. Responsible provider identified 3. Pertinent medical history reviewed 4. Procedure type and surgical course discussed 5. Intraoperative anesthetic management and any significant issues discussed 6. Expectations and concerns for postop period discussed 7. Questions solicited from receiving nurse 8. Patient disposition at the time of handoff: PACU 0939 An Stop Meds Name Total propofol 900 mg Lidocaine IV 2 % 100 mg sodium chloride 0.9% infusion 700 mL * Agents Name O2% N2O O2 N2O Air * Blood No blood administrations on file. 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 Never 05/11/2024 7:23 AM CDT Rosana Pavon RN documented as of this encounter OR Notes * Anesthesia Postprocedure Evaluation - Travon Laboy MD - 05/11/2024 12:30 PM CDT Patient: Larisa Black Procedure Summary Date: 05/11/24 Room / Location: [facility] ENDOSCOPY ROOM / [facility] ENDOSCOPY Anesthesia Start: 844 Anesthesia Stop: 938 Procedure: COLON REMOVAL SNARE (Colon) Diagnosis: Special screening for malignant neoplasms, colon (Special screening for malignant neoplasms, colon [Z12.11]) Providers: Ting Malhotra MD PhD Responsible Provider: Travon Laboy MD Anesthesia Type: general TIVA ASA Status: 3 Anesthesia Type: general TIVA Last vitals BP 119/86 Pulse 65 Temp 36.3 ??C (97.3 ??F) Resp 11 SpO2 99% Anesthesia Post Evaluation Patient location during evaluation: PACU Patient participation: complete - patient participated Level of consciousness: fully awake Pain score: 0 Pain management: adequate Airway patency: adequate Evidence of recall: no Cardiovascular status: hemodynamically stable and acceptable Respiratory status: acceptable and room air Hydration status: acceptable Pt is: normothermic Nausea/Vomiting status: none No notable events documented. * Anesthesia Preprocedure Evaluation - Travon Laboy MD - 05/11/2024 7:42 AM CDT Images from the original note were not included. Anesthesia Evaluation Larisa Black is a 58 y.o. female COLONOSCOPY (Colon) Pre-Op Diagnosis Codes: * Special screening for malignant neoplasms, colon [Z12.11] Patient Active Problem List Diagnosis Date Noted Encounter for screening colonoscopy 11/25/2023 Constipation 11/25/2023 Prediabetes 02/11/2023 Weight loss counseling, encounter for 01/04/2023 Metabolic and nutritional disorder 01/04/2023 Disordered eating 01/04/2023 Drug-induced constipation 01/04/2023 Colon cancer screening 01/23/2022 Morbid (severe) obesity due to excess calories (HCC) 11/21/2021 Morbid obesity (HCC) 10/12/2021 Elevated glucose 06/09/2020 Polyarthralgia 06/09/2020 Positive ELISABET (antinuclear antibody) 06/09/2020 Shakiness 06/09/2020 Other chronic pain 05/10/2020 Back pain 08/17/2019 Post-surgical hypothyroidism 06/15/2019 Shortness of breath 06/15/2019 Papillary thyroid carcinoma (CMS/HCC) (HCC) 04/06/2019 Class 3 severe obesity due to excess calories with serious comorbidity and body mass index (BMI) of45.0 to 49.9 in adult (HCC) 02/27/2019 Elevated cholesterol 02/27/2019 Schatzki's ring 02/27/2019 Blood in stool 12/29/2018 Chronic nonintractable headache 12/29/2018 Anxiety disorder 06/12/2018 Asthma 06/12/2018 Chronic sinusitis 06/12/2018 Depressive disorder, atypical 06/12/2018 Hypertension 06/12/2018 MARTINA (obstructive sleep apnea) 06/12/2018 Allergic rhinitis 11/29/2017 Fibrocystic breast changes 06/18/2011 Past Medical History: Diagnosis Date Anxiety Asthma Cholelithiasis Depression Hypertension Hypothyroidism Morbid obesity (HCC) Polyarthralgia Sleep apnea Thyroid cancer (HCC) Past Surgical History: Procedure Laterality Date APPENDECTOMY BIOPSY 03/30/2019 FNA isthmus thyroid nodule BREAST BIOPSY Right x2 CHOLECYSTECTOMY 1985 ESOPHAGOGASTRODUODENOSCOPY SLEEVE GASTROPLASTY 2021 THYROIDECTOMY OB History No obstetric history on file. Allergies Allergen Reactions Nabumetone Shortness of breath and Wheezing Med List Status: Nurse Complete Set By: Rosana Pavon, RN at 05/11/2024 7:26 AM Taking? Last Dose Start Date End Date Provider acetaminophen/d-brompheniramin 500-1 mg tablet Past Week -- -- Johnnie Lopez MD albuterol (PROVENTIL,VENTOLIN) 2 mg tablet More than a month -- -- Johnnie Lopez MD ALPRAZolam (NIRAVAM) 0.5 mg disintegrating tablet Unknown -- -- Johnnie Lopez MD ALPRAZolam (XANAX) 0.5 mg tablet 05/10/2024 04/03/19 -- Johnnie Lopez MD yvzfkowsay-mallishrfpajl-ysqggfgu (FIORICET) 50-300-40 mg per capsule Past Week 10/03/22 -- Johnnie Lopez MD calcium carbonate-vitamin D3 1,250mg (500mg elemental) - 5 mcg (200 units) per tablet () -- 01/23/22 01/23/23 Bg Ye MD Take 1 tablet by mouth 3 (three) times a day cetirizine (ZyrTEC) 10 mg tablet 05/10/2024 07/13/15 -- Johnnie Lopez MD cholecalciferol, vitamin D3, (Vitamin D3) 1,000 unit tablet,chewable Past Week -- -- Johnnie Lopez MD citalopram (CeleXA) 40 mg tablet 05/10/2024 05/10/20 -- Johnnie Lopez MD citalopram (CeleXA) 40 mg tablet Unknown -- -- Johnnie Lopez MD cyanocobalamin (Vitamin B-12) 500 mcg tablet () -- 11/23/21 06/19/22 Freedom Baldwin MD Take 1 tablet (500 mcg total) by mouth daily docusate sodium (COLACE) 100 mg capsule () -- 12/25/21 06/19/22 Bg Ye MD Take 1 capsule (100 mg total) by mouth 2 (two) times a day DULoxetine DR (CYMBALTA) 60 mg capsule 05/10/2024 02/01/24 -- Johnnie Lopez MD eszopiclone (LUNESTA) 2 mg tablet Past Week 01/10/24 -- ProviderJohnnie MD fluconazole (DIFLUCAN) 150 mg tablet Unknown 01/10/24 -- Johnnie Lopez MD fluticasone (VERAMYST) 27.5 mcg/actuation nasal spray Past Week -- -- Johnnie Lopez MD fluticasone propionate (FLONASE) 50 mcg/actuation nasal spray Past Week 07/13/15 -- Johnnie Lopez MD hydroCHLOROthiazide (HYDRODIURIL) 25 mg tablet Unknown 02/09/22 -- Provider, MD Johnnie levothyroxine (SYNTHROID) 137 mcg tablet Past Week 02/10/24 -- Jessica, MD Johnnie lisinopril-hydroCHLOROthiazide (ZESTORETIC) 20-25 mg per tablet 05/10/2024 -- -- ProviderJohnnie MD Mucus D 120-1,200 mg tablet extended release 12 hr 05/10/2024 10/15/22 -- Johnnie Lopez MD multivit jyezgrwi-xfms-RQ-calcium (THERA-M) 9 mg iron-400 mcg tablet () -- 11/23/21 06/19/22Freedom Baldwin MD Take 1 tablet by mouth 2 (two) times a day ondansetron (ZOFRAN) 4 mg tablet 05/10/2024 05/08/24 -- Kamila Miller MD Take 1 tablet (4 mg total) by mouth 3 (three) times a day as needed for nausea or vomiting Notes: Assist with Nausea prior to scope. ProAir RespiClick 90 mcg/actuation inhaler More than a month 09/24/22 -- Johnnie Lopez MD sod picosulf-mag ox-citric ac (Clenpiq) 10 mg-3.5 gram- 12 gram/175 mL solution 05/11/2024 05/06/24 -- Ting Malhotra MD [facility] 05/10/2024 at 6:00 PM Drink 1 bottle (5.4oz) of prep solution followed by 5 cups or more of clear liquids. 05/11/2024 at 3:45 AM drink the second 5.4 oz bottle of prep solution followed by 4 cups or more of clear liquids. sod picosulf-mag ox-citric ac 10 mg-3.5 gram- 12 gram/175 mL solution Unknown 01/30/24 -- Lashanda Howard MD 03/12/24 @6:00 PM Drink 1 bottle (5.4oz) followed by 5 cups or more of clear liquids. Drink the second bottle on 03/13/24 @4:30 AM followed by 4 cups or more of clear liquids. Please refer to additional instructions per [facility] nurse. Notes: 2 bottles. Pharmacist may substitute Clenpiq sodium, potassium & mag sulfates (SUPREP BOWEL KIT) 17.5-3.13-1.6 gram recon soln Unknown 01/23/22 -- Rocky Carlson MD Take 354 mL by mouth as directed Take 1st 1/2 at 6 pm evening prior to procedure. Take 2nd 1/2 6 hours prior to arrival (1 am). Flag for Review Taking? Last Dose Start Date End Date Provider DULoxetine 40 mg capsule,delayed release(DR/EC) -- 12/14/21 -- Johnnie Lopez MD levothyroxine (SYNTHROID) 150 mcg tablet () -- 09/08/22 09/08/23 Chaparro Campbell MD Take 1 tablet (150 mcg total) by mouth daily levothyroxine 200 mcg/mL solution -- -- -- Johnnie Lopez MD metFORMIN (GLUCOPHAGE) 500 mg tablet () -- 02/11/23 04/19/23 Humaira Dean NP Take 1 tablet (500 mg total) by mouth daily with breakfast for 7 days, THEN 1 tablet (500 mg total)2 (two) times a day with meals. methocarbamoL (ROBAXIN) 750 mg tablet -- -- -- Johnnie Lopez MD naltrexone-bupropion 8-90 mg tablet extended release -- 11/02/22 -- Jasmina Payan NP Take 1 tablet every AM for 1 week; then 1 tab. twice daily for 1 week; then 2 tabs AM, 1 tab PM for1 week; then 2 tablets twice daily. pantoprazole DR (PROTONIX) 40 mg EC tablet -- 05/21/23 -- Bg Ye MD TAKE 1 TABLET BY MOUTH TWICE A DAY polymyxin B-trimethoprim (POLYTRIM) ophthalmic solution -- 08/08/23 -- ProviderJohnnie MD traMADoL (ULTRAM) 50 mg tablet -- -- -- ProviderJohnnie MD Current Facility-Administered Medications: ondansetron (ZOFRAN) injection 4 mg, 4 mg, intravenous, Q6H PRN sodium chloride 0.9% flush 0.5-20 mL, 0.5-20 mL, intra-catheter, PRN sodium chloride 0.9% infusion, 125 mL/hr, intravenous, Continuous, Last Rate: 125 mL/hr at 729, 125 mL/hr at 05/11/24 0729 sodium chloride 0.9% infusion, 30 mL/hr, intravenous, Continuous Social History Tobacco Use Smoking Status Never Smokeless Tobacco Never Alcohol Use: Not At Risk (05/11/2024) AUDIT-C Frequency of Alcohol Consumption: Never Average Number of Drinks: Patient does not drink Frequency of Binge Drinking: Never Substance and Sexual Activity Drug Use Not Currently Family History Problem Relation Age of Onset Cancer Mother Depression Mother Other (overweight) Mother Diabetes Mother Hypertension Father Vitals: 05/11/24 0714 05/11/24 0720 BP: 118/70 Pulse: 83 Resp: 18 Temp: 36.6 ??C (97.9 ??F) SpO2: 96% PT: No results found for requested labs within last 30 days. INR: No results found for requested labs within last 30 days. APTT: No results found for requested labs within last 30 days. Hgb A1C: No results found for requested labs within last 30 days. CBC RBC: No results found for requested labs within last 30 days. RDW: No results found for requested labs within last 30 days. MCHC: No results found for requested labs within last 30 days. MCH: No results found for requested labs within last 30 days. MCV: No results found for requested labs within last 30 days. Hct: No results found for requested labs within last 30 days. Hgb: No results found for requested labs within last 30 days. WBC: No results found for requested labs within last 30 days. MPV: No results found for requested labs within last 30 days. Platelets: No results found for requested labs within last 30 days. RDW CV: No results found for requested labs within last 30 days. RDW Sd: No results found for requested labs within last 30 days. BMP Glucose: No results found for requested labs within last 30 days. Calcium: No results found for requested labs within last 30 days. Sodium: No results found for requested labs within last 30 days. Potassium: No results found for requested labs within last 30 days. CO2: No results found for requested labs within last 30 days. Chloride: No results found for requested labs within last 30 days. BUN: No results found for requested labs within last 30 days. Creatinine: No results found for requested labs within last 30 days. DOS Physical Exam Medical history, medications, and allergies reviewed. Attestation: This PAT evaluation Airway Exam: Mallampati: III Cervical ROM: FROM Cardiovascular Exam: Rate: regular Rhythm: regular Pulmonary Exam: LCTA, bilat Anesthesia Plan ASA 3 Planned anesthesia: General TIVA Informed Consent: Anesthesia plan and risks discussed with patient. Consent and Attending signature: I and/or my designee have discussed the anesthesia plan, benefits, possible alternatives, parental presence at time of induction (if indicated), and clinically relevant risks that may include dental injury, unintentional awareness, and/or other complications. The patient and/or parent/legal guardian understand, and agree to proceed. All questions answered. Plan and Consent Comments: M obesity documented in this encounter Plan of Treatment Not on file documented as of this encounter Visit Diagnoses Not on filedocumented in this encounter Administered Medications Inactive Administered Medications - up to 3 most recent administrations Medication Order MAR Action Action Date Dose Rate Site lidocaine (XYLOCAINE) 20 mg/mL (2 %) injection intravenous, As needed, Starting on Sat05/11/24 at 0848, Anesthesia Intra-op, Indications: Administration of Local AnesthesiaIndications:Administrati on of Local Anesthesia Given 05/11/2024 8:48 AM CDT 100 mg propofoL (DIPRIVAN) 10 mg/mL IV intravenous, As needed, Starting on Sat05/11/24 at 0848, Anesthesia Intra-op Given 05/11/2024 9:31 AM CDT 50 mg Given 05/11/2024 9:30 AM CDT 50 mg Given 05/11/2024 9:25 AM CDT 50 mg sodium chloride 0.9% infusion 125 mL/hr, intravenous, Continuous, Starting on Sat05/11/24 at 0800, Pre-Op, Indications: sigmoidoscopy/colonoscopy patientsIndications:sigmoidoscopy/colonoscopy patients Restarted 05/11/2024 9:12 AM CDT Rate/Dose Verify 05/11/2024 8:45 AM CDT 125 mL/ hr New Bag 05/11/2024 7:29 AM CDT 125 mL/hr 125 mL/hr documented in this encounter Care Teams Slip Cover Maker Relationship Specialty Start Date End Date Edita Portillo NP [address] [place] [id number] PCP - General Nurse Practitioner 03/08/22 Kristopher Cross MD Consulting Physician Otolaryngology 05/02/21 documented as of this encounter
--- OUTSIDE RECORDS SUMMARY | 2024-05-11 19:40 | XMS_ITS | Patient Health Record ---
Author Organization [facility] Address [address] [place] [address] Care Team Providers Care Livestock Laborer Name Role Phone Chucho Stapleton Unavailable [phone] Reason For Referral No Information Medications Medication SIG (Take, Route, Frequency, Duration) Notes Start Date End Date Status Methocarbamol 750 MG take 1 tablet (750 mg) by oral route 3 times per day Oral 3 Active Vitamin D3 25 mcg/1000 1 in morning oral *[facility]* Active Meloxicam 15 MG take 1 tablet (15 mg) by oral route once daily with food. Oral 1 04/10/2021 Active fluticasone [place] 2 2 sprays each nostril as needed spray *[facility] and Interaction Alerts* Active traMADol HCl 50 MG take 1 tablet (50 mg) by oral route every 6 hours as needed Oral 4 Active citalopram 40 mg 1 nightly oral *[facility] Interaction [facility]* Active Leflunomide 20 MG take 1 tablet (20 mg) by oral route once daily Oral 1 07/17/2021 Active ALPRAZolam .5 mg 3 times daily as needed oral *[facility]* Active DULoxetine HCl 30 MG take 1 capsule (30 mg) by oral route once daily Oral 1 Active Levothyroxine 200 mcg 1 daily oral *[facility]* Active Albuterol 2 every 6 hours puffs *[facility]* Active certrizine 10 mg HS oral *[facility] Interaction Alert[facility]* Active Medrol 4 MG take as directed Oral 07/17/2021 Active Acetaminophen 500 mg 2 tablets ( 1000mg ) every 6 hours oral *Pick strength-form from [employer] for eRX* Active Lisinopril/HCTZ 1 nightly oral *Reorder from [facility] for eRx and Interaction Alerts* Active Problems Problem Type SNOMED Code ICD Code Onset Dates Problem Status W/U Status Risk Notes Problem Tuberculosis of respiratory system (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) Active confirmed lung disease Problem Malignant tumor of thyroid gland (660574758) Malignant neoplasm of thyroid gland (C73) Active confirmed Problem Primary malignant neoplasm (256404847) Malignant (primary) neoplasm, unspecified (C80.1) Active confirmed Thyroid Problem Anemia (711044382) Anemia, unspecified (D64.9) Active confirmed Problem Disorder of thyroid gland (73921322) Disorder of thyroid, unspecified (E07.9) Active confirmed Problem Foot ulcer due to type 2 diabetes mellitus (3105982818269) Type 2 diabetes mellitus with foot ulcer (E11.621) Active confirmed Pre diabetes Problem Major depression, single episode (52545725) Major depressive disorder, single episode, unspecified (F32.9) Active confirmed Problem Anxiety disorder (847576542) Anxiety disorder, unspecified (F41.9) Active confirmed Problem Uncomplicated asthma (disorder) (176384399) Unspecified asthma, uncomplicated (J45.909) Active confirmed Problem Hemorrhoids (07362593) Unspecified hemorrhoids (K64.9) Active confirmed Problem Joint pain (66925886) Pain in unspecified joint (M25.50) Active confirmed all over Problem Heart murmur (finding) (47580351) Cardiac murmur, unspecified (R01.1) Active confirmed Problem Weakness (85625156) Weakness (R53.1) Active confirmed Problem Allergy (113172515) Allergy, unspecified, initial encounter (T78.40XA) Active confirmed Problem Essential hypertension (27339694) Essential (primary) hypertension (I10) Active confirmed Plan Of Treatment No Information Insurance Providers Payer Name Payer Address Payer Phone Subscriber Number Group Number Insured Name Patient Relationship to Insured Coverage Start Date Coverage End Date [employer] [address] [employer] [address] [id number] Larisa Hoyt Self - patient is the insured Medical (General) History Surgical History Surgery Date(Month/Year) Gallbladder Removed, Date of Procedure: 1984; 2020-06-27 Appendectomy, Date of Procedure: 1984; Breast Bx: right breast both times, Date of Procedure: 1983, 1993; 2020-06-27 Thyroidectomy: removed - thyroid cancer, Date of Procedure: ; 2020-06-27
--- OUTSIDE RECORDS SUMMARY | 2024-05-11 19:40 | XMS_ITS | Clinical Summary ---
Author Organization [facility] Address [address] [place] [address] Care Team Providers Care City Councilman Name Role Phone Edita Portillo JONATHAN Primary Care Provider [phone] Galdino Perry MD Unavailable Allergies Active Allergy Reactions Criticality Noted Date Comments Doxycycline GI Upset Low 05/16/2018 Nabumetone Other (see comment) Medium 07/11/2020 Medications albuterol (2.5 MG/3ML) 0.083% nebulizer solution Inhale 3 mLs (2.5 mg total) into the lungs. 04/03/19 18 Active cetirizine 10 MG tablet Take 1 tablet (10 mg total) by mouth. Active cholecalciferol (VITAMIN D-3) 125 MCG (5000 UT) Tab Take 1 tablet (5,000 Units total) by mouth. Active acetaminophen 500 MG tablet Take 2 tablets (1,000 mg total) by mouth. Active oxybutynin 5 MG tabletIndications :OAB (overactive bladder) Take 1 tablet (5 mg total) by mouth daily. 90 tablet 3 10/25/19 21 Active vitamin B-12 (CYANOCOBALAMIN) 500 MCG tablet Take 1 tablet (500 mcg total) by mouth daily. 11/24/19 22 Active calcium carbonate-vitamin D (OSCAL + D) 500-5 MG-MCG Tab Take 1 tablet by mouth 3 (three) times daily. 11/24/19 22 Active multi vitamin/minerals (THERA-M ENHANCED) tablet Take 1 tablet by mouth 2 (two) times daily. 11/24/19 22 Active PROAIR RESPICLICK 108 (90 Base) MCG/ACT AEROSOL POWDER, BREATH ACTIVATEDIndicati ons:Mild intermittent asthma without complication (HHS/HCC) Inhale 2 puffs into the lungs every 4 (four) hours as needed (COUGH, WHEEZING). 1 each 5 09/25/19 23 Active pseudoephedrine-g uaiFENesin ER (MUCINEX D MAX STRENGTH) 120-1200 MG TABLET SR 12 HR 12 hr tabletIndications :Chronic frontal sinusitis Take 1 tablet by mouth every 12 (twelve) hours as needed. 28 tablet 2 10/16/19 23 Active ALPRAZolam (XANAX) 0.5 MG tabletIndications :Anxiety Take 1 tablet (0.5 mg total) by mouth 3 (three) times daily. 90 tablet 2 11/19/19 24 Active citalopram (CELEXA) 40 MG tabletIndications :Mild episode of recurrent major depressive disorder Take 1 tablet (40 mg total) by mouth daily. 90 tablet 3 11/19/19 24 Active DULoxetine (CYMBALTA) 60 MG capsuleIndication s:Mild episode of recurrent major depressive disorder Take 1 capsule (60 mg total) by mouth daily. 90 capsule 3 11/19/19 24 Active fluticasone propionate (FLONASE) 50 MCG/ACT nasal sprayIndications: Dysfunction of both eustachian tubes 2 sprays by Each Nostril route daily. 48 mL 3 11/19/19 24 Active hydroCHLOROthiazi de (HYDRODIURIL) 25 MG tabletIndications :Primary hypertension Take 1 tablet (25 mg total) by mouth every morning. 90 tablet 3 11/19/19 24 Active eszopiclone (LUNESTA) 2 MG tabletIndications :Psychophysiologi attila insomnia Take 1 tablet (2 mg total) by mouth nightly at bedtime. at bedtime. 90 tablet 1 01/10/20 24 Active fluconazole (DIFLUCAN) 150 MG tabletIndications :Antibiotic-induc ed yeast infection Take one tablet now and you may repeat one tablet 72 hours for continued symptoms 2 tablet 1 01/10/20 24 Active butalbital-acetam inophen-caffeine (FIORICET) 50-300-40 MG capsuleIndication s:Chronic nonintractable headache, unspecified headache type TAKE 1 CAPSULE BY MOUTH EVERY 6 HOURS NEEDED FOR PAIN OR MIGRAINE. 30 capsule 1 04/16/19 25 Active ondansetron (ZOFRAN-ODT) 4 MG disintegrating tabletIndications :S/P bariatric surgery,N&V (nausea and vomiting) Take 1 tablet (4 mg total) by mouth every 8 (eight) hours as needed for Nausea. 20 tablet 1 05/09/19 25 Active lisinopril-hydroC HLOROthiazide (ZESTORETIC) 10-12.5 MG tabletIndications :Primary hypertension TAKE 1 TABLET BY MOUTH EVERY DAY 90 tablet 05/12/19 25 Active levothyroxine (SYNTHROID) 137 MCG tabletIndications :Post-surgical hypothyroidism TAKE 1 TABLET BY MOUTH EVERY MORNING. 90 tablet 05/12/19 25 Active butalbital-acetam inophen-caffeine (FIORICET) 50-300-40 MG capsuleIndication s:Chronic nonintractable headache, unspecified headache type TAKE 1 CAPSULE BY MOUTH EVERY 6 HOURS NEEDED FOR PAIN OR MIGRAINE. 30 capsule 1 11/19/19 24 025 Discontinued levothyroxine (SYNTHROID) 137 MCG tabletIndications :Post-surgical hypothyroidism TAKE 1 TABLET BY MOUTH EVERY MORNING. 90 tablet 02/10/20 24 025 Discontinued Active Problems Problem Noted Date Diagnosed Date Psychophysiological insomnia 01/10/2024 Antibiotic-induced yeast infection 01/10/2024 Prediabetes 02/11/2023 Disordered eating 01/04/2023 Overview (11/19/2023): Last Assessment & Plan: Sent QEWP to complete. Discussed/reviewed that CBT is the basis for successful treatment of disordered eating. Suggested providers including [facility] or Birdie Ledezma LCSW. Metabolic and nutritional disorder 01/04/2023 Restless legs syndrome 09/27/2022 Hypokalemia 03/14/2022 Dysfunction of both eustachian tubes 03/14/2022 Severe obstructive sleep apnea 03/14/2022 Stage 3a chronic kidney disease 01/03/2022 Dizzy spells 01/03/2022 BMI 40.0-44.9, adult 12/28/2021 S/P bariatric surgery 12/28/2021 Chronic nausea 12/28/2021 Constipation, unspecified constipation type 04/2021 Positive ELISABET (antinuclear antibody) 06/09/2020 Polyarthralgia 06/09/2020 Other chronic pain 05/10/2020 Enlarged lymph node 10/08/2019 Post-surgical hypothyroidism 06/15/2019 Overview (07/08/2019): Last Assessment & Plan: Slightly lower levothyroxine dose from 237 mcg to 225 mcg Will check thyroid function test and adjust levothyroxine dose accordingly. TSH goal < 1 Papillary thyroid carcinoma ([facility]) Overview (06/01/2019): Added automatically from request for surgery [id number] Anxiety 03/06/2019 Vitamin B12 deficiency 03/06/2019 Precordial pain 02/27/2019 Schatzki's ring 02/27/2019 Esophageal dysphagia 02/27/2019 Elevated cholesterol 02/27/2019 Memory changes 12/29/2018 Dazed state 12/29/2018 Blood in stool 12/29/2018 Chronic nonintractable headache, unspecified hea dache type 12/29/2018 Asthma ([facility]) 06/12/2018 Chronic sinusitis 06/12/2018 Depression 06/12/2018 Hypertension 06/12/2018 MARTINA (obstructive sleep apnea) 06/12/2018 Overview (06/12/2018): Overview: on CPAP Vitamin D deficiency 06/12/2018 Allergic rhinitis 11/29/2017 Fibrocystic breast changes 06/18/2011 Resolved Problems Problem Noted Date Diagnosed Date Resolved Date Snores 01/03/2022 11/19/2023 Tachycardia 01/03/2022 11/19/2023 Physical deconditioning 09/20/202110/27 Acute non-recurrent frontal sinusitis 05/10/2021 09/18/2021 Elevated glucose 06/09/2020 11/19/2023 Shakiness 06/09/2020 11/19/2023 Back pain 08/17/2019 11/19/2023 SOB (shortness of breath) 07/08/2019 Shortness of breath 06/15/2019 11/19/19 Overview (07/08/2019): Last Assessment & Plan: Current thyroid dose [...] 225 mcg Patient agreed Papillary thyroid carcinoma ([facility]) 04/06/1905/10/2021 Overview (07/08/2019): T1N0Mo Stage I papillary thyroid cancer S/p [...] additional clinic visit if not absolutely necessary Thyroid nodule 03/06/2019 10/15/2022 Dyspnea on exertion 02/27/2019 11/19/19 Morbid obesity 02/27/2019 11/19/2023 Weakness 12/29/2018 11/19/2023 Visual changes 12/29/2018 11/19/2023 Anxiety disorder 06/12/2018 11/19/2023 Overview (06/12/2018): Overview: with mild panic attacks Encounter for lipid screenin g for cardiovascular disease 06/12/2018 11/06/2019 Screening for endocrine, met abolic and immunity disorder 06/12/2018 11/06/2019 Encounters Date Type Department Care Team Description 05/08/2024 Telephone [facility] [address] [address] Edita Portillo, JONATHAN Medication 04/16/2024 Telephone [facility] [address] [address] [place] Edita, MOLD WASHER Radiology Results 02/28/2024 MyChart Message Enc [facility] [address] [address] Bandar Edita, MOLD WASHER Test results 02/25/[address] [address] [place] Edita, MOLD WASHER Advice 02/11/2024 Scan HEALTH INFO SRVCS Scanned, [facility] Ultrasound (SCAN) from Last 3 Months Immunizations Name Administration Dates Next Due Dtap 12/13/2009 Dtap (Generic) 12/13/2009,06/12/2009 Influenza (Generic) 02/09/2013, 2,12/14/2009,2006 Influenza Adult (Generic) 12/26/2023 Inaura COVID-19 (ORIGINAL FORMULATION, PURPLE CAP) mRNA, LNP-S, PF, 30 MCG/0.3 ML DOSE 03/08/2021,08/03/2020,07/13/2020 Pneumococcal (Pneumovax 23) 04/19/2014, 9 Pneumococcal (Prevnar 20) 03/08/2022 Td (Tenivac) preservative free 03/29/2003 Tdap (Generic) 06/12/2009 Family History Medical History Relation Comments Hyperlipidemia Brother Hypertension Father CHF Maternal Grandfather Colon Cancer Maternal Grandfather Breast Cancer Maternal Grandmother CHF Maternal Grandmother Arthritis Mother Cancer Mother Depression Mother Diabetes Mother Hyperlipidemia Mother Ovarian Cancer Mother Relation Status Comments Brother Alive Father Alive Maternal Grandfather Maternal Grandmother Mother Alive Other Alive Paternal Grandfather Paternal Grandmother Social History Tobacco Use Types Packs/Day Years Used Date Smoking Tobacco: Never Smokeless Tobacco: Never Tobacco Cessation:Counseling Given: Not Answered Alcohol Use Standard Drinks/Week Comments No 0 (1 standard drink = 0.6 oz pur e alcohol) AUDIT-C Answer Date Recorded Frequency of Alcohol Consumption Never 06/12/2018 Average Number of Drinks Not on file 019 Frequency of Binge Drinking Not on file 05/26 PHQ-2 Answer Date Recorded Patient Health Questionnaire-2 Score 3 01/10/2024 Comments No Sex and Gender Information Value Date Recorded Sex Assigned at Not on file Legal Sex Female 12:57 PM CDT Gender Identity Not on file Sexual Orientation Not on file Last Filed Vital Signs Vital Sign Reading Time Taken Comments Blood Pressure 114/79 01/10/2024 7:29 AM AFTERNOON NANNY Pulse 90 01/10/2024 7:29 AM AFTERNOON NANNY Temperature 37 C (98.6 F) 01/10/2024 7:29 AM AFTERNOON NANNY Respiratory Rate 18 01/10/2024 7:29 AM AFTERNOON NANNY Oxygen Saturation 96% 01/10/2024 7:29 AM AFTERNOON NANNY Inhaled Oxygen Concentration - - Weight 111.7 kg (246 lb 4.8 oz) 01/10/2024 7:29 AM AFTERNOON NANNY Height 166.4 cm (5' 5.5 ) 01/10/2024 7:29 AM AFTERNOON NANNY Body Mass Index 40.36 01/10/2024 7:29 AM AFTERNOON NANNY Plan of Treatment Health Maintenance Due Date Last Done Comments Cervical Cancer Screening Pap Smear (Age 30 to 64) Every 3 Years 1966 Colorectal Cancer Screening Colonoscopy (10 Years) 1966 Annual Physical 1969 Hepatitis C 1984 Hepatitis B Vaccines (1 of 3 - 19+ 3-dose series) 1985 Cervical Cancer Screening Pap with HPV Testing (Age 30 to 64) Every 5 Years 1996 Cervical Cancer Screening with HPV 1996 Mammogram Screening 2006 Zoster Vaccines (1 of 2) 2016 DTaP, Tdap and Td Vaccines (5 - Td or Tdap) 12/14/2019 12/13/2009, 12/13/2009, 06/12/2009, Additional history exists COVID-19 Vaccine ( season) 2023 03/08/2021, 08/03/2020, 07/13/2020 PHQ-2 (Physician [place]) 02/26/2024 01/10/2024 Pneumococcal Vaccine: Pediatrics (0 to 5 Years) and At-Risk Patients (6 to 64 Years) Completed 03/08/2022, 04/19/2014, 02/26/2008 Influenza Adult Completed 12/26/2023, 01/25, 02/08/2012, Additional history exists Meningococcal B Vaccine Aged Out No l onger eligible based on patient's age to complete this topic Meningococcal Vaccine Aged Out No maude chilo eligible based on patient's age to complete this topic RSV Immunizations Under 20 Months Aged Out No longer eligible based on patient's age to complete this topic Procedures Procedure Name Priority Date/Time Associated Diagnosis Comments ULTRASOUND GENERIC (SCAN ORDER) 02/11/2024 ULTRASOUND GENERIC (SCAN ORDER) 02/11/2024 from Last 3 Months Results * ULTRASOUND GENERIC (SCAN ORDER) (02/11/2024) Only the most recent of2 resultswithin the time period is included. Anatomical Region Laterality Modality Other 02/11/2024 us [facility] Scanned SCANNING Final Resu lt from Last 3 Months Insurance [facility] Care Teams City Councilman Relationship Specialty Start Date End Date Edita Portillo FNP [facility] [place] [address] PCP - General Nurse Practitioner Family 06/12/18 Galdino Perry MD 3 [facility] [address] [place] [address] [place] Senior Media Director CARDIOVASCULAR DISEASE 02/05/19
--- OUTSIDE RECORDS SUMMARY | 2024-05-11 19:40 | XMS_ITS | Encounter Summary ---
Author Organization [facility] Address [address] [place] [address] Care Team Providers Care Produce Buyer Name Role Phone Kristopher Cross MD Unavailable [phone] Edita Portillo NP Primary Care Provider [phone] Reason for Visit * Auth/Cert (Routine) Specialty Diagnoses / Procedures Referred By Contac t Referred To Contact Diagnoses Special screening for malignant neoplasms, colon Special screening for malignant neoplasms, colon [Z12.11] Procedures NC COLONOSCOPY FLX DX W/COLLJ SPEC WHEN PFRMD COLONOSCOPY Referral ID Status Reason Start Date Expiration Date Visits Re quested Visits Authorized [id number] 1 1 Encounter Details Date Type Department Care Team (Latest Contact Info) Description 05/11/2024 6:57 AM CDT - 05/11/2024 10:49 AM CDT Hospital Encounter [facility] Endoscopy [address] [place] [address] John Malhotra MD PhD [address] [place] [address] Special screening for malignant neoplasms, colon Discharge Disposition: Discharge to home or self care Social History Tobacco Use Types Packs/Day Years [...] on file Legal Sex Female 2:21 AM SANITARY PLUMBER Gender Identity Female 05/02/2020 6:34 AM SANITARY PLUMBER Sexual Orientation Not on file Occupation Industry [...] through Care Everywhere. * Colonoscopy (Discharge Care) (Vietnamese) documented in this encounter Medications at Time [...] 12 (twelve) hours as needed 3 multivit zbrlvavr-rmwe-BN-ca lcium (THERA-M) 9 mg iron-400 mcg tabletIndications:V [...] sulfates (SUPREP BOWEL KIT) 17.5-3.13-1.6 gram recon solnIndications:[place] el Evacuation Take 354 mL by mouth [...] or anxiety 04/03/19 Yes Johnnie Lopez MD rmudctzlwy-rmjmsadnlqnqg-hjttwbft (FIORICET) 50-300-40 mg per capsule TAKE 1 [...] (CeleXA) 40 mg tablet 1 nightly oral Johnnie Lopez MD cyanocobalamin (Vitamin B-12) 500 [...] day Oral 3 Johnnie Lopez MD multivit vjcihvjf-nwol-VI-calcium (THERA-M) 9 mg iron-400 mcg tablet Take [...] Female Attending MD: John Malhotra M.D. Room: [facility] ENDOSCOPY ROOM 03 Note Status: Finalized Procedure: [...] scope was passed under direct vision. The [id number] was introduced through the anus and advanced to the cecum, identified by appendiceal orifice and ileocecal valve. The colonoscopy was performed without difficulty. The patient tolerated the procedure well. The quality of the bowel preparation was adequate. The quality of the bowel preparation was evaluated using the BBPS ([place] Bowel Preparation Scale) with scores of: Right [...] 7-10 years for surveillance. Electronically signed by Jonh Malhotra MD John Malhotra M.D. 05/11/2024 9:53:22 [...] Lynn Jesus RN - 04/30/2024 3:05 PM SANITARY PLUMBER You have an appointment for colonoscopy [facility] 05/11/24. Arrival time 7:45 am for 8:45 am procedure Our address is: [address] [facility] [address] Malhotra's office instruction regarding your colonoscopy bowel prep Bring current medication list for review. Leave valuables at home-mills, credit cards, jewelry Due to the anesthesia you will not be able to drive. Please have a ride arranged to and from hospital with a responsible adult. No form of public transportation by yourself will be allowed:Lynn Young [employer] When you arrive come in through hospital main entrance and check in at the information desk For questions or if you cannot make this appointment and wish to reschedule please call the gastroenterology office [phone] Thank you TARY PLUMBER documented in this encounter Plan of Treatment [...] Female Attending MD: John Malhotra M.D. Room: [facility] ENDOSCOPY ROOM 03 Note Status: Finalized Procedure: [...] The scope was passed under direct vision.The [id number] was introduced through the anusand advanced to [...] home. - [facility]. Electronically signed by John Malhotra MD John Malhotra M.D. 05/11/2024 9:53:22 AM Number of Addenda: 0 Note Initiated On: 05/11/2024 8:00 AM John Malhotra MD PhD ENDOSCOPY PROCEDURES Final Result documented in this encounter Visit Diagnoses Diagnosis Special screening for malignant neoplasms, colon documented [...] Starting on Sat05/11/24 at 0719, Pre-Procedure (GI) sodium chloride 0.9% flush 0.5-20 mL 0.5-20 mL, intra-catheter, As needed, line care, Starting on Sat05/11/24 at 0719, Pre-Procedure (GI), Flush volume based on line type and size. Flush before and after each use. , Indications: FlushingIndications:Flushing sodium chloride 0.9% infusion 125 mL/hr, intravenous, Continuous, Starting on Sat05/11/24 at 0800, Pre-Op, Indications: sigmoidoscopy/colonoscopy patientsIndications:sigmoidoscopy/c olonoscopy patients Restarted 05/11/2024 9:12 AM CDT Rate/Dose [...] ondansetron (ZOFRAN) injection 4 mg 1 05/11 simethicone (MYLICON) 66.7 m g/mL oral drops 1 05/11/2024 sodium chloride 0.9% flush 0.5-20 mL 1 04/25 sodium chloride 0.9% infusion 1 05/11/2024 documented in this encounter Care Teams Produce Buyer Relationship Specialty Start Date End Date Edita Portillo NP [address] [place] [address] PCP - General Nurse Practitioner 03/08/22 Kristopher Cross MD Consulting Physician Otolaryngology 05/02/21 documented as of this encounter
--- OUTSIDE RECORDS SUMMARY | 2024-05-11 19:40 | XMS_ITS | Encounter Summary ---
Author Organization [facility] Address [address] [place] [address] Care Team Providers Care Navy Diver Name Role Phone Edita Portillo Primary Care Provider [phone] Galdino Perry MD Unavailable [phone] Encounter Details Date Type Department Care Team (Late st Contact Info) Description 08/22/2022 MyChart Message Enc [facility] - [facility] [address] [place], [place] [address] [employer], [facility] Provider Air Quality Message Social History Tobacco Use Types Packs/Day Years [...] Answer Date Recorded Patient Health Questionnaire-2 Score 2 03/08/2022 Comments No Sex and Gender Information Value Date Recorded Sex Assigned at Not on file Legal Sex Female 12:57 PM CDT Gender Identity Not on file Sexual Orientation Not on file documented as of this encounter Plan of Treatment Not on file documented as of this encounter Visit Diagnoses Not on filedocumented in this encounter Additional Health Concerns Assessment Noted Time PHQ-9 Depression Total Score: 8 03/08/19 23 3:34 PM CUSTOM FURRIER documented as of this encounter Care Teams Navy Diver Relationship Specialty Start Date End Date Edita Portillo FNP [address] [place] [address] PCP - General Nurse Practitioner Family 06/12/18 Galdino Perry MD [address] [facility] [address] [place] [phone] [place] Fifth Hand CARDIOVASCULAR DISEASE 02/05/19 documented as of this encounter
--- OUTSIDE RECORDS SUMMARY | 2024-05-11 19:40 | XMS_ITS | Encounter Summary ---
Author Organization [facility] Address [address] [place] [address] Care Team Providers Care Lecturer In Marketing Name Role Phone Edita Portillo Primary Care Provider [phone] Galdino Perry MD Unavailable [phone] Encounter Details Date Type Department Care Team (Late st Contact Info) Description 04/01/2023 MyChart Message Enc [facility] Family & Internal Medicine [facility] [address] [place] [address] Edita Portillo FNP [address] [place] [address] For mammogram Social History Tobacco Use Types Packs/Day Years [...] Total Score: 8 03/08/19 23 3:34 PM TARGET SETTER documented as of this encounter Care Teams Lecturer In Marketing Relationship Specialty Start Date End Date Edita Portillo FNP [address] [place] [address] PCP - General Nurse Practitioner Family 06/12/18 Galdino Perry MD 3 [facility] [address] [place] [phone] [place] Motion Picture Director CARDIOVASCULAR DISEASE 02/05/19 documented as of this encounter
--- OUTSIDE RECORDS SUMMARY | 2024-05-11 19:40 | XMS_ITS | Clinical Summary ---
Author Organization [facility] Address [address] [place] [address] Care Team Providers Care Ultrasonic Tester Name Role Phone Kristopher Cross MD Unavailable [phone] Edita Portillo NP Primary Care Provider [phone] Allergies Active Allergy Reactions Criticality Noted Date [...] mouth every morning 05/11/19 21 Active multivit ogakmrdv-fzwk-GR-c alcium (THERA-M) 9 mg iron-400 mcg tabletIndications: [...] mL by mouth as directed Take 1st /2 at 6 pm evening prior to procedure. [...] a day with meals. 60 tablet 1 12/18/[address] (PROTONIX) 40 mg [...] 01/04/2023 Assessment & Plan (01/04/2023 5:30 PM INSIDE CHANNEL ACCOUNT MANAGER): Sent QEWP to complete. Discussed/reviewed that CBT is the basis for successful treatment of disordered eating. Suggested providers including [facility] or Birdie Ledezma LCSW. Drug-induced constipation 01/04/2023 Assessment & Plan (01/04/2023 5:40 PM INSIDE CHANNEL ACCOUNT MANAGER): Recommended daily fiber supplement containing inulin or wheat dextrin. Discussed possible benefits w/r/t gut microbiome and weight. Miralax prn. Colon cancer screening 01/23/2022 Overview (01/23/2022): Added automatically from request for surgery [id number] Morbid (severe) obesity due to excess calories [...] Allergic rhinitis 11/29/2017 Fibrocystic breast changes 06/18/2011 Encounters Date Type Department Care Team Description 05/11/2024 8:45 AM CDT - 05/11/2024 9:30 AM CDT Surgery [facility] [address], [place] [address] John Malhotra MD PhD COLON REMOVAL SNARE 05/11/2024 8:45 AM CDT Anesthesia Event [facility] [address], [place] [address] Travon Laboy MD 05/11/2024 6:57 AM CDT - 05/11/2024 10:49 AM CDT Hospital Encounter [facility] [address] [place] [address] John Malhotra MD PhD Special screening for malignant neoplasms, colon Discharge Disposition: Discharge to home or self care 02/11/2024 1:56 PM INSIDE CHANNEL ACCOUNT MANAGER - 02/11/2024 11:59 PM INSIDE CHANNEL ACCOUNT MANAGER Hospital Encounter [facility] [address] [place] [address] Mass of left breast, unspecified quadrant; Fibrocystic breast changes, unspecified laterality Discharge Disposition: Discharge to home or self care 02/11/2024 1:45 PM INSIDE CHANNEL ACCOUNT MANAGER - 02/11/2024 11:59 PM INSIDE CHANNEL ACCOUNT MANAGER Hospital Encounter [facility] [address] [place] [address] Mass of left breast, unspecified quadrant; Fibrocystic breast changes, unspecified laterality Discharge Disposition: Discharge to home or self care from Last 3 Months Immunizations Immunization Administration Dates Next Due DT 12/13/2009 DTaP 12/13/2009 DTaP, Unspecified 12/13/2009,06/12/2009 Influenza, Quadrivalent, Spl it, Intramuscular 02/08/2012 Influenza, Trivalent, IM (MDV) 02/09/2013 Influenza, Unspecified 02/08/2012,12/14/2009,02/2006 Pfizer SARS-CoV-2 Monovalent Vaccination (12+ Yrs) PURPLE 08/03/2020,07/13/2020 Pneumococcal Polysaccharide PPV23 04/19/2014,02/2008 TD Preservative Free 03/29/2003 Td, adsorbed 03/29/2003 Tdap 06/12/2009 Surgical History Surgery Date Site/Laterality Comments BIOPSY 03/30/2019 FNA isthmus thyroid nodule CHOLECYSTECTOMY 02/26/1984 - 02/24/1985 BREAST BIOPSY Right x2 ESOPHAGOGASTRODUODENOSCOPY APPENDECTOMY THYROIDECTOMY SLEEVE GASTROPLASTY 02/25/2021 - 02/24/2022 Medical History Medical History Date Comments Hypertension Asthma Anxiety Sleep apnea Thyroid cancer (HCC) Depression Morbid obesity (HCC) Polyarthralgia Hypothyroidism Cholelithiasis Family History Medical History Relation Name Comments Hypertension Father Chris Newton Cancer Mother Olga Newton Depression Mother Olga Newton Diabetes Mother Olga Newton overweight Mother Olga Newton Relation Name Status Comments Father Chris Newton Mother Olga Newton Social History Tobacco Use Types Packs/Day Years [...] on file Legal Sex Female 2:21 AM INSIDE CHANNEL ACCOUNT MANAGER Gender Identity Female 05/02/2020 6:34 AM INSIDE CHANNEL ACCOUNT MANAGER Sexual Orientation Not on file Occupation Industry Job Start Date Job End Date disability Not on file Not on file Not on file Obstetrics History Last Filed Vital Signs Vital Sign Reading [...] 05/11/2024 7:14 AM CDT Plan of Treatment Health Maintenance Due Date Last Done Comments Cervical Cancer Screening 1965 Depression Screening 1966 Hepatitis C Screening 1966 Hepatitis B Screening 1984 Regular Well Visit/Exam 18-64 1984 Pneumococcal vaccine <65 (2 of 2 - PCV) 04/19/2015 04/19/2014, 02/26/2008 Zoster Vaccine (1 of 2) 2016 DTaP/Tdap/Td Vaccine (6 - Td or Tdap) 12/14/2019 12/13/2009, 12/13/2009, 12/13/2009, Additional history exists Covid-19 Vaccine (2023- 5 season) 2023 03/08/2021, 08/03/2020, 07/13/2020 Breast Cancer Screening-Mammogram 02/10/2025 02/11/2024, 06/18/2017, 04/19/2014, Additional history exists Colon Cancer Screening-Colonoscopy 05/11/2034 05/11/2024 Influenza Vaccine Completed 12/26/2023, , 02/08/2012, Additional history exists Colon Cancer Screening-CT Colonography Discontinued 05/11/2024 Colon Cancer Screening-DNA Stool Discontinued 05/12/19 Colon Cancer Screening-FIT Discontinued 05/11/2024 Colon Cancer Screening-Sigmoidoscopy Discontinued 05/11/2024 Medical Devices Implanted Type Area Manager Baby Device Identifier Shelf Expiration Date Model / Serial / Lot [employer] Biological Bariatric Peristrip Non Crosslinked Bovine Pericardium For Endo Brielle Thin [id number] - [id number] Implanted:Qty: 1 on 11/21/2021 by Bg Ye MD at [facility] [employer] 09/15/2022 [id number] HN / / [id number] [employer] Bariatric Peristrip Non Crosslinked Bovine Pericardium For Endo Brielle Thin [id number] - [id number] Implanted:Qty: 1 on 11/21/2021 by Bg Ye MD at [facility] [employer] 2022 [id number] HN / / [id number] [employer] Bariatric Peristrip Non Crosslinked Bovine Pericardium For Endo Brielle Thin [id number] - [id number] Implanted:Qty: 1 on 11/21/2021 by Bg Ye MD at [facility] [employer] 09/15/2022 [id number] HN / / [id number] [employer] Biological Bariatric Peristrip Non Crosslinked Bovine Pericardium For Endo Brielle Thin [id number] - [id number] Implanted:Qty: 1 on 11/21/2021 by Bg Ye MD at [facility] [employer] 09/15/2022 [id number] HN / / [id number] [facility]ly [facility], 1928–1983 Biological Bariatric Peristrip Non Crosslinked Bovine Pericardium For Endo Brielle Thin [id number] - [id number] Implanted:Qty: 1 on 11/21/2021 by Bg Ye MD at [facility] [employer] 2022 [id number] HN / / [id number] [facility]–1983 Biological Bariatric Peristrip Non Crosslinked Bovine Pericardium For Endo Brielle Thin [id number] - [id number] Implanted:Qty: 1 on 11/21/2021 by Bg Ye MD at [facility] [employer] 09/15/2022 [id number] HN / / [id number] Procedures Procedure Name Priority Date/Time Associated Diagnosis Comments COLONOSCOPY 05/11/2024 8:00 AM CDT US BREAST LEFT LIMITED Schedule Routine, Read Routine (OP Routine) 02/11/2024 3:05 PM INSIDE CHANNEL ACCOUNT MANAGER Mass of left breast, unspecified quadrant DIAGNOSTIC MAMMOGRAM BILATERAL W BUZZ Schedule Routine, Read Routine (OP Routine) 02/11/2024 2:43 PM INSIDE CHANNEL ACCOUNT MANAGER Mass of left breast, unspecified quadrant Fibrocystic [...] Female Attending MD: John Malhotra M.D. Room: [facility] ROOM 03 Note Status: Finalized [...] The scope was passed under direct vision.The [id number] was introduced through the anusand advanced to [...] home. - [facility] Electronically signed by John Malhotra MD John Malhotra M.D. 05/11/2024 9:53:22 AM Number of Addenda: 0 Note Initiated On: 05/11/2024 8:00 AM us John Malhotra MD PhD ENDOSCOPY PROCEDURES Final Result * US Breast Left Limited (02/11/2024 3:05 PM INSIDE CHANNEL ACCOUNT MANAGER) Anatomical Region Laterality Modality Breast Left Ultrasound 02/11/2024 3:37 PM INSIDE CHANNEL ACCOUNT MANAGER Addenda Addendum by Barbara Kaiser MD on 04/14/2024 3:49 PM INSIDE CHANNEL ACCOUNT MANAGER EXAMINATION: Bilateral DIGITAL DIAGNOSTIC MAMMOGRAM AND DIGITAL [...] Barbara Kaiser M.D. Impressions 02/11/2024 3:58 PM INSIDE CHANNEL ACCOUNT MANAGER At the palpable area of concern, there [...] Barbara Kaiser M.D. Narrative 02/11/2024 3:58 PM INSIDE CHANNEL ACCOUNT MANAGER EXAMINATION: LEFT UNILATERAL DIGITAL DIAGNOSTIC MAMMOGRAM AND [...] Mammogram Bilateral W Buzz (02/11/2024 2:43 PM INSIDE CHANNEL ACCOUNT MANAGER) Anatomical Region Laterality Modality Breast Bilateral Mammography 02/11/2024 3:37 PM INSIDE CHANNEL ACCOUNT MANAGER Addenda Addendum by Barbara Kaiser MD on 04/14/2024 3:49 PM INSIDE CHANNEL ACCOUNT MANAGER EXAMINATION: Bilateral DIGITAL DIAGNOSTIC MAMMOGRAM AND DIGITAL [...] Barbara Kaiser M.D. Impressions 02/11/2024 3:58 PM INSIDE CHANNEL ACCOUNT MANAGER At the palpable area of concern, there [...] Barbara Kaiser M.D. Narrative 02/11/2024 3:58 PM INSIDE CHANNEL ACCOUNT MANAGER EXAMINATION: LEFT UNILATERAL DIGITAL DIAGNOSTIC MAMMOGRAM AND [...] - Final from Last 3 Months Insurance [facility] Address: [facility] [id number] [place] [address] [employer] [facility] Address: [address] [place], [place] [address] [place] [address] [facility] Advance Directives For more information, please contact: [phone] * Full Code (Latest Code Status on File) Date Activated Date Inactivated Comments 05/11/2024 7:19 AM 05/11/2024 2:49 PM * Full Code Date Activated Date Inactivated Comments 11/21/2021 3:46 PM 11/23/2021 8:36 PM * Full Code Date Activated Date Inactivated Comments 04/24/2019 1:19 PM 04/25/2019 5:10 PM Care Teams Ultrasonic Tester Relationship Specialty Start Date End Date Edita Portillo NP [address] [place] [address] PCP - General Nurse Practitioner 03/08/22 Kristopher Cross MD Consulting Physician Otolaryngology 05/02/21
--- OUTSIDE RECORDS SUMMARY | 2024-05-11 19:40 | XMS_ITS | Encounter Summary ---
Author Organization [facility] Address [address] [place] [address] Care Team Providers Care Employee Communications Intern Name Role Phone Edita Portillo Primary Care Provider [phone] Galdino Perry MD Unavailable [phone] Encounter Details Date Type Department Care Team (Late st Contact Info) Description 04/18/2022 MyCTransCardiac Therapeuticst Message Enc [facility] Family & Internal Medicine [facility] [address] [place] [address] Edita Portillo FNP [address] [place] [address] Tere Jerome appointment canceled Social History Tobacco Use Types Packs/Day Years [...] Total Score: 8 03/08/19 23 3:34 PM COMMUNITY DEVELOPMENT WORKER documented as of this encounter Care Teams Employee Communications Intern Relationship Specialty Start Date End Date Edita Portillo FNP [address] [place] [address] PCP - General Nurse Practitioner Family 06/12/18 Galdino Perry MD 3 [facility] [address] [place] [address] [employer] Paster CARDIOVASCULAR DISEASE 02/05/19 documented as of this encounter
--- OUTSIDE RECORDS SUMMARY | 2024-05-11 19:40 | XMS_ITS ---
Author Organization [facility] Address [address] [facility] [facility] [address] [place] [address] Care Team Providers Care Wrecker Driver Name Role Phone Chucho Stapleton Unavailable [phone] zzzzMigration, zzzzProvider Unavailable Unav ailable REASON FOR VISIT EMR-Gabriel Encounters Encounter Location Date Provider Diagnosis [facility] [address] [facility] [address] [place] [address] 12/15/2022 zzzzProvider zzzzMigration Plan Of Treatment Medication Medication Name Sig Start Date Stop Date Notes Hydroxychloroquine Sulfate 200 MG take 2 tablets (400 mg) by oral route once daily for 90 days Oral 1 for 90 05/23/2021 11/19/2021 Nabumetone 500 MG take 2 tablets (1,000 mg) by oral route 2 times per day prn Oral 2 06/27/2020 Doloxetine 30 mg once daily oral *Re order from [facility] for eRx and Interaction Alerts* Levothyroxine 25 mcg 1 daily oral *R eorder from [facility] for eRx and Interaction Alerts* Medrol 4 MG take by oral route as directed per package instructions Oral 0 10/20/2020 Zithromax Z-Mychal 250 MG take 2 tablets (5 00 mg) by oral route once daily for 1 day then 1 tablet (250 mg) by oral route once daily for 4 days Oral 1 for 5 07/17/2021 07/22/2021 Progress Notes * Ryan SANCHEZOB:[birth year] (58 yo F)Acc No.[id number]:12/15/2022 Patient: Wellington Larisa PARRA :1965 A ge:57 Y S ex:Female Phone: Address:[address], [place], [address] * Refills Stop Hydroxychloroquine Sulfate Tablet, 200 MG, Oral, 180, take 2 tablets (400 mg) by oral route once daily, 1 Stop Medrol Tablet Therapy Pack, 4 MG, Oral, 1, take by oral route as directed per package instructions, 0 Stop Hydroxychloroquine Sulfate Tablet, 200 MG, Oral, 180, take 2 tablets (400 mg) by oral route once daily for 90 days, 1, 90 Stop Nabumetone Tablet, 500 MG, Oral, 120, take 2 tablets (1,000 mg) by oral route 2 times per day prn, 2 Stop Doloxetine, 30 mg, oral, 0, once daily Stop Zithromax Z-Mychal Tablet, 250 MG, Oral, 6, take 2 tablets (500 mg) by oral route once daily for 1 day then 1 tablet (250 mg) by oral route once daily for 4 days, 1, 5 Stop Hydroxychloroquine Sulfate Tablet, 200 MG, Oral, 180, take 2 tablets (400 mg) by oral route once daily, 1 Stop Levothyroxine, 25 mcg, oral, 0, 1 daily Stop Medrol Tablet Therapy Pack, 4 MG, Oral, 1, take by oral route as directed per package instructions, 0 Subjective: * Chief Complaints: * E MR-Gabriel * Medical History: * Surgical History: * Hospitalization/Major Diagno stic Procedure: * Medications: Objective: * Vitals: * Physical Examination: Assessment: Plan: * Treatment: * Procedure Codes: * * Date:
--- OUTSIDE RECORDS SUMMARY | 2024-05-11 19:40 | XMS_ITS | Encounter Summary ---
Author Organization [facility] Address [address] [place] [address] Care Team Providers Care Logging Rafter Laborer Name Role Phone Edita Portillo Primary Care Provider [phone] Galdino Perry MD Unavailable [phone] Encounter Details Date Type Department Care Team (Late st Contact Info) Description 02/28/2024 MyChart Message Enc [facility] Family & Internal Medicine [facility] [address] [place] [address] Edita Portillo FNP [address] [place] [address] Test results Social History Tobacco Use Types Packs/Day Years [...] Assessment Noted Time PHQ-9 Depression Total Score: 13 01/09/ 024 7:27 AM SHIRT FOLDING MACHINE OPERATOR documented as of this encounter Care Teams Logging Rafter Laborer Relationship Specialty Start Date End Date Edita Portillo FNP [address] [place] [address] PCP - General Nurse Practitioner Family 06/12/18 Galdino Perry MD [address] [facility] [address] [place] [phone] [employer] Travel Counselor [employer] CARDIOVASCULAR DISEASE 02/05/19 documented as of this encounter
--- OUTSIDE RECORDS SUMMARY | 2024-05-11 19:40 | XMS_ITS | Encounter Summary ---
Author Organization [facility] Address [address] [place] [address] Care Team Providers Care Wireless Development Manager Name Role Phone Edita Portillo Primary Care Provider [phone] Galdino Perry MD Unavailable [phone] Encounter Details Date Type Department Care Team (Late st Contact Info) Description 07/03/2023 MyChart Message Enc [facility] Family & Internal Medicine [facility] [address] [place] [address] Edita Portillo FNP [address] [place] [address] Blood pressure high Social History Tobacco Use Types Packs/Day Years [...] Total Score: 8 03/08/19 23 3:34 PM CALCINE FURNACE LOADER documented as of this encounter Care Teams Wireless Development Manager Relationship Specialty Start Date End Date Edita Portillo FNP [address] [place] [address] PCP - General Nurse Practitioner Family 06/12/18 Galdino Perry MD [address] [facility] [address] [place] [phone] [place] [employer]ance Services Coordinator CARDIOVASCULAR DISEASE 02/05/19 documented as of this encounter
--- OUTSIDE RECORDS SUMMARY | 2024-05-11 19:40 | XMS_ITS | Encounter Summary ---
Author Organization [facility] Address [address] [place] [address] Care Team Providers Care Vehicle Operator Name Role Phone Edita Portillo Primary Care Provider [phone] Galdino Perry MD Unavailable [phone] Encounter Details Date Type Department Care Team (Late st Contact Info) Description 11/20/2023 MyChart Message Enc [facility] Family & Internal Medicine [facility] [address] [place] [address] Edita Portillo FNP [address] [place] [address] Stomach X-rays Social History Tobacco Use Types Packs/Day Years [...] on file documented as of this encounter Progress Notes * JONATHAN Jones - 11/21/2023 2:29 PM CDT Yes referral can be placed. See previous message documented in this encounter Plan of Treatment Not on file documented as of this encounter Visit Diagnoses Not on filedocumented in this encounter Additional Health Concerns Assessment Noted Time PHQ-9 Depression Total Score: 8 03/08/19 23 3:34 PM HIGH VALUE ASSOCIATE documented as of this encounter Care Teams Vehicle Operator Relationship Specialty Start Date End Date Edita Portillo FNP [address] [place] [address] PCP - General Nurse Practitioner Family 06/12/18 Galdino Perry MD 3 [facility] [address] [place] [phone] [employer] Supervisor CARDIOVASCULAR DISEASE 02/05/19 documented as of this encounter
[2024-05-11] MEDS: FAMOTIDINE 20 MG/2 ML VIAL IV PUSH (19:43)
[2024-05-11] MEDS: PANTOPRAZOLE SODIUM IV 40 MG VIAL IV PUSH (19:43)
[2024-05-11] MEDS: ONDANSETRON INJ 4 MG/2 ML VIAL IV PUSH (19:43)
[2024-05-11] MEDS: BELLADONNA ALK/PHENOB ELIX 10 ML, MAG HYDROX/ALUMINUM HYD/SIMETH 30 ML, LIDOCAINE 2% VI... PO (19:43)
[2024-05-11 19:47] LABS: Troponin I < 0.012 ng/mL (0.000-0.034)
[2024-05-11 19:55] LABS: Partial Thromboplastin Time 31.8 Seconds (22.3-36.8)
[2024-05-11 20:01] LABS: Influenza A QL RT-PCR Negative (Negative); Influenza B QL RT-PCR Negative (Negative); RSV RNA, RT-PCR Negative (Negative); SARS-CoV-2 RNA PCR Negative (Negative)
--- NOTE | 2024-05-11 20:17 | ED_ITS ---
HPI - General Adult General Chief complaint: Nausea/Vomiting/Diarrhea Stated complaint: N/V WITH WORSENING CHEST PRESSURE Time Seen by Provider: 05/11/24 19:11 History of Present Illness HPI narrative: 58-year-old female presented to the emergency department for evaluation of persistent nausea and vomiting, lightheaded dizziness after having a colonoscopy earlier. Patient reports that she does have history of gastric sleeve, patient did take Mag citrate last night for the colonoscopy prep. Patient was told she did have some polyps. After the procedure patient began having nausea and vomiting. Patient reports she has not passed a significant amount of flatus. Related Data Home Medications ?Medication ?Instructions ?Recorded ?Confirmed ?Last Taken ?Type albuterol sulfate 90 mcg/actuation 2 inh inhalation Q6H PRN Shortness 09/29/20 09/29/20 Unknown History breath activated powder inhaler Of Breath (ProAir RespiClick) alprazolam 0.5 mg tablet 0.5 mg PO TID 09/29/20 09/29/20 Unknown History citalopram 40 mg tablet 40 mg PO DAILY 09/29/20 09/29/20 Unknown History duloxetine 30 mg capsule,delayed 30 mg PO DAILY 09/29/20 09/29/20 Unknown History release hydroxychloroquine 200 mg tablet 400 mg PO DAILY 09/29/20 09/29/20 Unknown History levothyroxine 200 mcg tablet 200 mcg PO DAILY 09/29/20 09/29/20 Unknown History (Euthyrox) lisinopril 20 1 tablet PO DAILY 09/29/20 09/29/20 Unknown History mg-hydrochlorothiazide 25 mg tablet nabumetone 500 mg tablet 1,000 mg PO BID PRN Pain 09/29/20 09/29/20 Unknown History Allergies Allergy/AdvReac Type Severity Reaction Status Date / Time doxycycline AdvReac Nausea Verified 05/11/24 19:12 Review of Systems 2 Review of Systems: All systems reviewed & are unremarkable except as noted in HPI and below PMFSH Past Medical History Medical History Anxiety and depression Asthma Autoimmune disease Bronchitis Compression fracture COVID-19 Hypertension Thyroid cancer Urinary incontinence Surgical History Surgical History H/O thyroidectomy Hx of appendectomy Hx of cholecystectomy Family History Family History (Updated 10/01/20 @ 17:16 by Teri Ureña NP) Other No significant family history Social History Social History (Updated 09/29/20 @ 18:36 by Teri Ureña NP) Smoking status: Never smoker Alcohol intake: unknown Substance use: never Living arrangements: with family Gender identity (if verbalized by the patient): Female Exam 2 Narrative: APPEARANCE: Well appearing, no pain, no distress, well-nourished. HEAD: normocephalic, atraumatic. EYES: PERRLA/EOMI, conjunctivae clear. NOSE: Normal no drainage EARS:TMS clear with good light reflex. THROAT: Pharynx clear, no exudate. NECK: Supple. No adenopathy, no masses. RESPIRATORY: Airway patent, respirations nonlabored. Clear to auscultation bilaterally, no rales, rhonchi, wheezing. CARDIOVASCULAR: Regular rate and rhythm without murmurs rubs or gallops. ABDOMINAL: Soft, nontender, nondistended, normal bowel sounds MUSCULOSKELETAL: Moves all extremities. Strength/ROM intact, No edema, No calf tenderness. NEURO: Alert. Cranial nerves II through XII intact. Good gait. Good coordination SKIN: Warm, dry. Normal Color Course Vital Signs Vital signs: Vital Signs Temperature 98.4 F 05/11/24 19:04 Pulse Rate 109 H 05/11/24 19:04 Respiratory Rate 14 05/11/24 19:04 Blood Pressure 131/95 H 05/11/24 19:04 Pulse Oximetry 99 05/11/24 19:04 Oxygen Delivery Room Air 05/11/24 19:04 Temperature 98.4 F 05/11/24 19:04 Pulse Rate 78 05/11/24 22:05 Respiratory Rate 17 05/11/24 22:05 Blood Pressure 129/71 05/11/24 22:05 Pulse Oximetry 100 05/11/24 22:05 Oxygen Delivery Room Air 05/11/24 19:13 Medical Decision Making MDM Narrative Medical decision making narrative: 58-year-old female presented emergency department for evaluation for nausea vomiting lightheadedness after a recent colonoscopy. Patient is afebrile but does have a leukocytosis of 19.5 stat be reactive to her nausea and vomiting. Patient's hemoglobin was stable at 13.5. Patient had no significant acute abnormalities on her CMP. Patient's troponin was negative. Patient was negative for influenza RSV and for COVID. Chest x-ray showed no acute infiltrate and CT abdomen pelvis shows no acute intracranial abnormality. After rehydration patient states she does feel improved and patient did tolerate p.o.. Patient does have Zofran at home. Patient was encouraged close follow-up with primary care physician. All questions concerns were addressed prior Differential Diagnosis Differential Diagnosis: Bowel perforation, dehydration, DKA, nausea vomiting diarrhea Vital Signs Vital Signs: Vital Signs Temperature 98.4 F 05/11/24 19:04 Pulse Rate 109 H 05/11/24 19:04 Respiratory Rate 14 05/11/24 19:04 Blood Pressure 131/95 H 05/11/24 19:04 Pulse Oximetry 99 05/11/24 19:04 Oxygen Delivery Room Air 05/11/24 19:04 Temperature 98.4 F 05/11/24 19:04 Pulse Rate 78 05/11/24 22:05 Respiratory Rate 17 05/11/24 22:05 Blood Pressure 129/71 05/11/24 22:05 Pulse Oximetry 100 05/11/24 22:05 Oxygen Delivery Room Air 05/11/24 19:13 Lab Data Lab results reviewed: Yes I reviewed the patient's lab results. 05/11/24 19:17 05/11/24 19:17 Labs: Lab Results 05/11/24 Range/Units 19:17 WBC 19.5 H (4.5-10.0) K/mm3 RBC 4.88 (4.2-5.4) M/mm3 Hgb 13.5 D (12.0-15.0) g/dL Hct 40.6 (37.0-47.0) % MCV 83.2 (80-100) fl MCH 27.7 (26-34) pg MCHC 33.3 (32-36) g/dl RDW 15.8 H (11.5-14.5) % Plt Count 379 H (150-375) k/mm3 MPV 8.7 (7.4-10.4) fl Immature Gran % (Auto) 0.4 (0-0.5) % Neut % (Auto) 89.8 H (45.5-73.1) % Lymph % (Auto) 3.2 L (18.3-44.2) % [place] % (Auto) 5.7 (2.6-8.5) % Eos % (Auto) 0.6 (0-4.4) % Baso % (Auto) 0.3 (0.2-1.2) % Lymph # (Auto) 0.63 L (0.9-3.2) K/mm3 [place] # (Auto) 1.1 H (0.1-0.6) K/mm3 Eos # (Auto) 0.1 (0-0.3) K/mm3 Baso # (Auto) 0.1 (0.0-0.1) K/mm3 Abs Immat Gran (auto) 0.07 H (0.00-0.031) K/mm3 Absolute Neuts (auto) 17.5 H (1.3-6.7) K/mm3 Absolute Nucleated RBC 0.000 (0.0-0.012) K/mm3 Nucleated RBC % 0.0 (0.0-0.2) % PT 13.0 (11.1-14.7) Seconds INR 1.0 APTT 31.8 (22.3-36.8) Seconds Sodium 136 L (137-145) mmol/L Potassium 3.3 L (3.4-5.0) mmol/L Chloride 100 (98-107) mmol/L Carbon Dioxide 22 (22-30) mmol/L Anion Gap 14 H (4-12) mmol/L BUN 18 H D (7-17) mg/dL Creatinine 1.00 (0.7-1.0) mg/dL Estim Creat Clear Calc 71 ml/min Estimated GFR 57 L (59 - ) Glucose 152 H (65-110) mg/dL Calcium 9.2 (8.4-10.2) mg/dL Total Bilirubin 0.6 (0.2-1.3) mg/dL AST 34 (14-36) U/L ALT 28 (6-35) U/L Alkaline Phosphatase 119 (38-126) U/L Troponin I < 0.012 (0.000-0.034) ng/mL Total Protein 8.0 (6.3-8.2) g/dL Albumin 4.8 (3.5-5.1) g/dL Lipase 201 (23-300) U/L Influenza A (RT-PCR) Negative (Negative) Influenza B (RT-PCR) Negative (Negative) RSV (RT-PCR) Negative (Negative) SARS-CoV-2 RNA (RT-PCR) Negative (Negative) Imaging Data Radiologist's impression: Impressions Chest X-Ray 05/11/24 20:23 IMPRESSION: No focal infiltrate or effusion. Abdomen/Pelvis CT 05/11/24 20:50 IMPRESSION: Mild left-sided hydroureteronephrosis without a source of obstruction identified. This finding is unchanged from 2021 and 2011. No acute intra-abdominal findings, as detailed above. Discharge Plan Discharge Clinical Impression: Nausea & vomiting Patient Disposition: Home, Self-Care Condition: Stable Instructions: Antibiotic Form, Clear Liquid Diet (ED), Acute Nausea and Vomiting (ED) Additional Instructions: Your home Zofran for nausea and vomiting. Clear liquid diet for the next few meals. Have close follow-up with your primary care physician. Patient Language: Macedonian Prescriptions: No Action citalopram 40 mg tablet 40 mg PO DAILY alprazolam 0.5 mg tablet 0.5 mg PO TID lisinopril-hydrochlorothiazide 20-25 mg tablet 1 tablet PO DAILY levothyroxine [Euthyrox] 200 mcg tablet 200 mcg PO DAILY hydroxychloroquine 200 mg tablet 400 mg PO DAILY nabumetone 500 mg tablet 1,000 mg PO BID PRN (Reason: Pain) duloxetine 30 mg capsule,delayed release(DR/EC) 30 mg PO DAILY ProAir RespiClick 90 mcg/actuation aerosol powdr breath activated 2 inh INHALATION Q6H PRN (Reason: Shortness Of Breath) acetaminophen 500 mg capsule 500 mg PO Q6H PRN (Reason: fever or pain) Qty: 30 0RF diazepam 5 mg tablet 5 mg PO HS PRN (Reason: pain, moderate) 10 Days Qty: 10 0RF lidocaine 4 % adhesive patch,medicated 1 patch TOPICAL Q24H PRN (Reason: pain) 10 Days 0RF Rx Instructions: may leave on for up to 12 hrs prednisone 20 mg tablet 60 mg PO DAILY 5 Days Qty: 15 0RF ibuprofen 400 mg tablet 400 mg PO TID PRN (Reason: fever or pain) 10 Days Qty: 30 0RF Follow-up/Referrals: RIKKI,ANDREA JOSEPH [Primary Care Provider] -
== END 2024-05-11 22:00 | disposition home or self-care (01) ==
PROVIDERS: Emergency Provider Emergency Medicine; PCP Nurse Practitioner Family
DX: R11.2 Nausea with vomiting, unspecified (principal); R07.89 Other chest pain; Z20.822 Contact with and (suspected) exposure to COVID-19; I10 Essential (primary) hypertension; E89.0 Postprocedural hypothyroidism; M35.9 Systemic involvement of connective tissue, unspecified; R32 Unspecified urinary incontinence; F41.9 Anxiety disorder, unspecified; F32.A Depression, unspecified; Z86.16 Personal history of COVID-19; Z98.84 Bariatric surgery status; Z86.0100 Personal history of colon polyps, unspecified; Z85.850 Personal history of malignant neoplasm of thyroid; Z90.49 Acquired absence of other specified parts of digestive tract; N13.30 Unspecified hydronephrosis; Z79.899 Other long term (current) drug therapy
CPT/HCPCS: 36415; 71046; 74176; 80053; 83690; 84484; 85025; 85610; 85730; 87637; 93005; 96361; 96374; 96375; 99284; A9270; J2405; J2470; J7030